=== PATIENT | female | born 1940 | race Caucasian/White ===

== ENCOUNTER 2017-12-29 11:20 | Emergency (ER) | payer MEDICARE, OTHER ==
[2017-12-29 11:27] VITALS: TEMP 97.1
[2017-12-29] MEDS ORDERED: SODIUM CHLORIDE 0.9% 500 ML IV ONE (11:55)
[2017-12-29] MEDS ORDERED: SODIUM CHLORIDE 0.9% 1,000 ML IV SCH (12:00)
[2017-12-29] MEDS ORDERED: ADENOSINE 3 MG/ML 2 ML VIAL IVP STA ×2 (12:01)
[2017-12-29 12:13] LABS: Basophils % (A) 0 %; Eosinophils # (A) 0.1 k/uL (0-0.7); Eosinophils % (A) 2 %; HGB 12.8 gm/dL (11.4-16.0); Lymphocytes # (A) 1.3 k/uL (1.0-4.8); Lymphocytes % (A) 17 %; MCH 29.1 pg (25.0-35.0); MCHC 33.8 g/dL (31.0-37.0); Mean Platelet Volume 8.4; Monocytes # (A) 0.5 k/uL (0-1.0); Monocytes % (A) 7 %; Neutrophils # (A) 5.6 k/uL (1.3-7.7); Neutrophils % (A) 74 %; Platelet Count 237 k/uL (150-450); RBC 4.41 m/uL (3.80-5.40); RDW 13.1 % (11.5-15.5); WBC 7.6 k/uL (3.8-10.6)
[2017-12-29 12:24] LABS: Albumin 3.6 g/dL (3.5-5.0); Calcium 9.4 mg/dL (8.4-10.2); Magnesium 1.9 mg/dL (1.6-2.3); Potassium 4.3 mmol/L (3.5-5.1); Total Bilirubin 0.6 mg/dL (0.2-1.3); Total Protein 6.1 g/dL (6.3-8.2)
[2017-12-29 12:29] LABS: Creatine Kinase 31 U/L (30-135)
[2017-12-29 12:32] LABS: INR 1.1 (<1.2); Prothrombin Time 10.3 sec (9.0-12.0)
[2017-12-29 12:41] LABS: Partial Thromboplastin Time 21.7 sec (22.0-30.0)
[2017-12-29 12:42] LABS: Creatine Kinase MB 0.8 ng/mL (0.0-2.4); Troponin I <0.012 ng/mL (0.000-0.034)
--- NOTE | 2017-12-29 12:57 | XR ---
EXAMINATION TYPE: XR chest 1V DATE OF EXAM: 12/29/2017 COMPARISON: 11/21/2015 HISTORY: Chest pain TECHNIQUE: Single frontal view of the chest is obtained. FINDINGS: Postsurgical change right shoulder and arthropathy left shoulder. There is prominence of t he right hilum. Subsegmental changes at the left lung base. Degenerative changes of the spine. Athero sclerotic change aorta. IMPRESSION: 1. Left basilar linear atelectasis. 2. There is a convex margin to the right hilum. Recommend CT scan chest to exclude mass.
[2017-12-29 13:21] VITALS: RESP 20
--- NOTE | 2017-12-29 14:59 | ED ---
Chest Pain HPI - General Chief Complaint: Chest Pain Stated Complaint: Chest Pain Time Seen by Provider: 12/29/17 11:29 Source: patient, EMS Mode of arrival: EMS Limitations: no limitations - History of Present Illness Initial Comments: 77 years old female comes in with the chest pain started 7 AM today she denies any shortness of breath she denies any pleuritic chest pain denies any fever no chills she is not coughing up any phlegm she noticed palpitations she noticed heart rate was fast, she noticed her pulse was around 135 at home and she feels short winded when she ambulates, no abdominal pain no frequency urgency dysuria no signs of symptoms of TIA or CVA - Related Data Home Medications Medication Instructions Recorded Confirmed DULoxetine HCL [Cymbalta] 60 mg PO BID 01/30/14 12/29/17 Levalbuterol Hfa Inhaler [Xopenex 2 puff INHALATION RT-Q6H PRN 01/30/14 12/29/17 Hfa Inhaler] Multivitamin/Iron/Folic Acid 1 tab PO DAILY 01/30/14 12/29/17 [Centrum Complete Multivit Tab] Nitroglycerin Sl Tabs [Nitrostat] 0.4 mg SUBLINGUAL Q5M PRN 01/30/14 12/29/17 metFORMIN HCL [Glucophage] 1,000 mg PO BID 01/30/14 12/29/17 Atorvastatin Calcium [Lipitor] 10 mg PO DAILY 12/29/17 12/29/17 Carvedilol [Coreg] 3.125 mg PO BID 12/29/17 12/29/17 Furosemide [Lasix] 40 mg PO DAILY 12/29/17 12/29/17 HYDROcodone/APAP 5-325MG [[place] 1 tab PO Q4HR PRN 12/29/17 12/29/17 5-325] Lactulose 10 gm PO BID 12/29/17 12/29/17 Lisinopril [Zestril] 20 mg PO DAILY 12/29/17 12/29/17 Nystatin 100,000Unit/gm Cream 1 applic TOPICAL BID 12/29/17 12/29/17 [Mycostatin Cream] Omeprazole Magnesium [PriLOSEC OTC] 20 mg PO DAILY 12/29/17 12/29/17 Potassium Chloride [Klor-Con 20 meq PO DAILY 12/29/17 12/29/17 Sprinkle] Tamsulosin HCl [Flomax] 0.4 mg PO DAILY 12/29/17 12/29/17 Previous Rx's Medication Instructions Recorded Pregabalin [Lyrica] 100 mg PO BID #60 cap 11/29/15 Carvedilol [Coreg] 6.25 mg PO BID #60 tablet 12/29/17 Lisinopril [Zestril] 10 mg PO DAILY #30 tab 12/29/17 Allergies Allergy/AdvReac Type Severity Reaction Status Date / Time albuterol Allergy Rash/Hives Verified 12/29/17 12:03 carbamazepine [From Tegretol] Allergy Rash/Hives Verified 12/29/17 12:03 carisoprodol [From Soma] Allergy Rash/Hives Verified 12/29/17 12:03 ciprofloxacin [From Cipro] Allergy Rash/Hives Verified 12/29/17 12:03 ciprofloxacin HCl Allergy Rash/Hives Verified 12/29/17 12:03 [From Cipro] rice Allergy Unknown Verified 12/29/17 12:03 Sulfa (Sulfonamide Allergy Rash/Hives Verified 12/29/17 12:03 Antibiotics) doxycycline AdvReac Nausea & Verified 12/29/17 12:03 Vomiting egg AdvReac Nausea & Verified 12/29/17 12:03 Vomiting & Diarrhea artificial sweetner in pop Allergy Rash/Hives Uncoded 12/21/15 13:53 Review of Systems ROS Statement: Those systems with pertinent positive or pertinent negative responses have been documented in the HPI. ROS Other: All systems not noted in ROS Statement are negative. EKG Findings - EKG Comments: EKG Findings:: EKG the supraventricular tachycardia ventricular rate is 134 QRS duration is 80 QT/QTC 300/448 review of this EKG reveals supraventricular tachycardia review of this EKG does not reveal any ST elevation or ST depression Past Medical History Past Medical History: Asthma, Chest Pain / Angina, Diabetes Mellitus, Hyperlipidemia, Hypertension, Respiratory Disorder Additional Past Medical History / Comment(s): Migraine, Varicose Veins, Bronchitis/Pneumonia/Sinus Problems, January 17 had complete right shoulder surgery - problem with blood clots after surgery History of Any Multi-Drug Resistant Organisms: None Reported Past Surgical History: Cholecystectomy, Heart Catheterization, Joint Replacement , Tonsillectomy Additional Past Surgical History / Comment(s): Bilateral Knee Replacement, Bilateral Rotator Cuff RepairComplete right shoulder surgery - January 17, 2015. Cardiac Catheterization - 2015 Past Anesthesia/Blood Transfusion Reactions: No Reported Reaction Past Psychological History: Anxiety, Depression Smoking Status: Never smoker Past Alcohol Use History: None Reported Past Drug Use History: None Reported - Past Family History Son(s) Family Medical History: Myocardial Infarction ([place]) Additional Family Medical History / Comment(s): son was adopted Sister(s) Additional Family Medical History / Comment(s): heart ablation Mother Family Medical History: Myocardial Infarction ([place]) Father Family Medical History: Myocardial Infarction ([place]) General Exam - General Exam Comments Initial Comments: General: The patient is awake , moderate distress, GCS is 15 Skin: Skin is warm and dry and no rashes or lesions are noted. Eye: Pupils are equal, round and reactive to light, extra-ocular movements are intact; there is normal conjunctiva bilaterally. Ears, nose, mouth and throat: There are moist mucous membranes and no oral lesions. Neck: The neck is supple, there is no tenderness or JVD. Cardiovascular: There is a regular rate and Respiratory: To auscultation bilateral, no wheezing no rhonchi no distress respiratory bass noticed Gastrointestinal: Soft, non-distended, non-tender abdomen without masses or organomegaly noted. There is no rebound or guarding present. Bowel sounds are unremarkable. Back: There is no tenderness to palpation in the midline. There is no obvious deformity. Musculoskeletal: Normal ROM, no tenderness, There is no pedal edema. There is no calf tenderness or swelling. No cords were appreciated. Neurological: CN II-XII intact, Cranial nerves III through XII are intact. There are no obvious motor or sensory deficits. Coordination appears grossly intact. Speech is normal. Psychiatric: Cooperative, appropriate mood & affect, normal judgment. Limitations: no limitations Course Vital Signs 12/29/17 12/29/17 12/29/17 11:22 11:27 12:29 Temperature 97.1 F L Pulse Rate 129 H 138 H Pulse Rate [ 129 H Disability Aide ] Respiratory 20 20 Rate Blood Pressure 103/60 103/73 O2 Sat by Pulse 95 95 Oximetry 12/29/17 12/29/17 12/29/17 12:46 13:20 14:18 Temperature Pulse Rate 137 H 78 80 Pulse Rate [ Disability Aide ] Respiratory 18 20 20 Rate Blood Pressure 106/74 118/58 126/59 O2 Sat by Pulse 96 95 96 Oximetry Critical Care Time Total Critical Care Time: 45 Critical Care Time: 77 years old female came in with the supraventricular tachycardia 134, at home she takes lisinopril and carvedilol she was short winded and I will be trying him adenosine we give her a fluid bolus adenosine 6 mg and was ineffective and we tried adenosine 12 mg and lactate and help the rhythm with the mom converted to sinus, first EKG is recorded ordered a CT head the second EKG was done at term 1455, this is sinus rhythm ventricular rate is 72 DC interval is 160 QRS duration is 80 QT/QTc is 398/[address] elevation noticed noticed a T-wave inversion in lead 3. She is feeling fine she wants to go home I did discuss with the Dr. Arauz heart Dr. Álvarez agreed that we could make some adjustments in her medication like decrease the dose of lisinopril from 20-10 mg and increase the dose of Coreg from 3.122 6.25 mg twice a day and they will see her and now the office in 2 days or she'll return to the ER if symptoms get worse at 1504 blood pressure is normal heart rate is back to normal Disposition Clinical Impression: SVT (supraventricular tachycardia), Lung mass Disposition: HOME SELF-CARE Condition: Good Instructions: Supraventricular Tachycardia (ED) Prescriptions: Carvedilol [Coreg] 6.25 mg PO BID #60 tablet Lisinopril [Zestril] 10 mg PO DAILY #30 tab Referrals: Jakob Magallanes MD [Primary Care Provider] - 1-2 days
[2017-12-29 15:29] VITALS: BP 130/61; PULSE 86
== END 2017-12-29 15:47 | disposition home or self-care (01) ==
LOC: EC 11:20
DX: I47.1 Supraventricular tachycardia (principal); R91.8 Other nonspecific abnormal finding of lung field; E11.9 Type 2 diabetes mellitus without complications; E78.5 Hyperlipidemia, unspecified; I10 Essential (primary) hypertension; F41.9 Anxiety disorder, unspecified; F32.9 Major depressive disorder, single episode, unspecified; Z95.818 Presence of other cardiac implants and grafts; Z79.02 Long term (current) use of antithrombotics/antiplatelets; Z79.84 Long term (current) use of oral hypoglycemic drugs; Z79.899 Other long term (current) drug therapy; Z88.8 Allergy status to other drugs, medicaments and biological substances; Z88.1 Allergy status to other antibiotic agents; Z91.018 Allergy to other foods; Z88.2 Allergy status to sulfonamides; Z91.012 Allergy to eggs
CPT/HCPCS: 99291; 96374; 96361 ×3; 36415; 93005; 80053; 82550; 82553; 83735; 84484; 85025; 85610; 85730; 71045; J0153

== ENCOUNTER → 2018-01-11 | Outpatient (CLI) | payer MEDICARE, OTHER ==
--- NOTE | 2018-01-11 13:09 | CT ---
EXAMINATION TYPE: CT chest w con DATE OF EXAM: 01/11/2018 COMPARISON: Chest x-ray December 29, 2017. CTA chest November 23, 2015 HISTORY: Abnormal findings on imaging. Recent abnormal chest x-ray. CT DLP: 472.4 mGycm. Automated Exposure Control for Dose Reduction was Utilized. TECHNIQUE: CT scan of the thorax is performed following with IV Contrast, patient injected with 80 m L of Isovue M300. FINDINGS: LUNGS: Accounting for x-ray abnormality is prominent distal right pulmonary artery branching into low er lobar branch, not significantly changed from prior CT. Current exam is slightly suboptimal due to artifact from patient's upper extremities. No obvious suspicious nodule or mass is present bilaterall y. No suspicious consolidation is seen. No pleural effusion or pneumothorax is noted. Tracheobronchia l tree is patent. MEDIASTINUM: There are no greater than 1 cm hilar or mediastinal lymph nodes. No pericardial effusi on is seen. Mild cardiomegaly is present. There is coronary artery calcification seen which is noted marker for coronary artery disease. There is persistent greater than 1 cm right thyroid nodule coron al image 28. Additional smaller thyroid nodules are present. OTHER: Metallic hardware from shoulder surgery causes streak artifact. There is persistent splenule a nterior to the spleen. Low dense nodular thickening to both adrenal glands favors benign hyperplasia is redemonstrated. There is moderate to severe multilevel spurring in the spine. There is T12 vertebr oplasty. IMPRESSION: 1. No suspicious mass or adenopathy with particular attention to area of right hilum at area of x-ray concern. 2. Redemonstration of nodularity in the thyroid with greater than 1 cm nodularity lower pole right th yroid lobe. Though no significant interval change I advise thyroid ultrasound follow-up to better arcelia luate and characterize.
== END | disposition home or self-care (01) ==
LOC: RADCTMAIN 10:44
PROVIDERS: ATTEND Internal Medicine Geriatric Medicine
DX: R93.8 Abnormal findings on diagnostic imaging of other specified body structures (principal)
CPT/HCPCS: 82565; 84520; 71260; Q9967

== ENCOUNTER 2018-01-29 12:32 | Emergency (ER) | payer MEDICARE, OTHER ==
[2018-01-29 12:37] VITALS: BP 131/73; PULSE 54; RESP 18; TEMP 98.3
[2018-01-29] MEDS ORDERED: methylPREDNISolone SOD SUCCI 125 MG/2 ML VIAL IM ONE (13:34)
--- NOTE | 2018-01-29 13:39 | ED ---
General Adult HPI - General Chief complaint: Skin/Abscess/Foreign Body Stated complaint: rash Time Seen by Provider: 01/29/18 12:43 Source: patient, RN notes reviewed Mode of arrival: wheelchair Limitations: no limitations - History of Present Illness Initial comments: 77-year-old female presents to the emergency department for a chief complaint of rash 3 days. Patient states the rash is itchy. Patient denies any pain. Patient states she contacted her family care doctor who told her to take Benadryl. Patient states that helps with the itching somewhat but has not taken the rash away. Patient denies any shortness of breath or difficulty breathing. Patient denies changing any detergent and or linens. Patient denies any fevers. Patient has no other complaints at this time. Patient denies chest pain, headaches, visual changes, abdominal pain, nausea or vomiting. - Related Data Home Medications Medication Instructions Recorded Confirmed DULoxetine HCL [Cymbalta] 60 mg PO BID 01/30/14 12/29/17 Levalbuterol Hfa Inhaler [Xopenex 2 puff INHALATION RT-Q6H PRN 01/30/14 12/29/17 Hfa Inhaler] Multivitamin/Iron/Folic Acid 1 tab PO DAILY 01/30/14 12/29/17 [Centrum Complete Multivit Tab] Nitroglycerin Sl Tabs [Nitrostat] 0.4 mg SUBLINGUAL Q5M PRN 01/30/14 12/29/17 metFORMIN HCL [Glucophage] 1,000 mg PO BID 01/30/14 12/29/17 Atorvastatin Calcium [Lipitor] 10 mg PO DAILY 12/29/17 12/29/17 Carvedilol [Coreg] 3.125 mg PO BID 12/29/17 12/29/17 Furosemide [Lasix] 40 mg PO DAILY 12/29/17 12/29/17 HYDROcodone/APAP 5-325MG [[place] 1 tab PO Q4HR PRN 12/29/17 12/29/17 5-325] Lactulose 10 gm PO BID 12/29/17 12/29/17 Lisinopril [Zestril] 20 mg PO DAILY 12/29/17 12/29/17 Nystatin 100,000Unit/gm Cream 1 applic TOPICAL BID 12/29/17 12/29/17 [Mycostatin Cream] Omeprazole Magnesium [PriLOSEC OTC] 20 mg PO DAILY 12/29/17 12/29/17 Potassium Chloride [Klor-Con 20 meq PO DAILY 12/29/17 12/29/17 Sprinkle] Tamsulosin HCl [Flomax] 0.4 mg PO DAILY 12/29/17 12/29/17 Previous Rx's Medication Instructions Recorded Pregabalin [Lyrica] 100 mg PO BID #60 cap 11/29/15 Carvedilol [Coreg] 6.25 mg PO BID #60 tablet 12/29/17 Lisinopril [Zestril] 10 mg PO DAILY #30 tab 12/29/17 Famotidine [Pepcid] 10 mg PO BID #10 tablet 01/29/18 predniSONE 50 mg PO DAILY #5 tablet 01/29/18 Allergies Allergy/AdvReac Type Severity Reaction Status Date / Time albuterol Allergy Rash/Hives Verified 01/29/18 12:36 carbamazepine [From Tegretol] Allergy Rash/Hives Verified 01/29/18 12:36 carisoprodol [From Soma] Allergy Rash/Hives Verified 01/29/18 12:36 ciprofloxacin [From Cipro] Allergy Rash/Hives Verified 01/29/18 12:36 ciprofloxacin HCl Allergy Rash/Hives Verified 01/29/18 12:36 [From Cipro] rice Allergy Unknown Verified 01/29/18 12:36 Sulfa (Sulfonamide Allergy Rash/Hives Verified 01/29/18 12:36 Antibiotics) doxycycline AdvReac Nausea & Verified 01/29/18 12:36 Vomiting egg AdvReac Nausea & Verified 01/29/18 12:36 Vomiting & Diarrhea artificial sweetner in pop Allergy Rash/Hives Uncoded 01/29/18 12:36 Review of Systems ROS Statement: Those systems with pertinent positive or pertinent negative responses have been documented in the HPI. ROS Other: All systems not noted in ROS Statement are negative. Past Medical History Past Medical History: Asthma, Chest Pain / Angina, Diabetes Mellitus, Hyperlipidemia, Hypertension, Respiratory Disorder Additional Past Medical History / Comment(s): Migraine, Varicose Veins, Bronchitis/Pneumonia/Sinus Problems, January 17 had complete right shoulder surgery - problem with blood clots after surgery History of Any Multi-Drug Resistant Organisms: None Reported Past Surgical History: Cholecystectomy, Heart Catheterization, Joint Replacement , Tonsillectomy Additional Past Surgical History / Comment(s): Bilateral Knee Replacement, Bilateral Rotator Cuff RepairComplete right shoulder surgery - January 17, 2015. Cardiac Catheterization - 2015 Past Anesthesia/Blood Transfusion Reactions: No Reported Reaction Past Psychological History: Anxiety, Depression Smoking Status: Never smoker Past Alcohol Use History: None Reported Past Drug Use History: None Reported - Past Family History Son(s) Family Medical History: Myocardial Infarction ([place]) Additional Family Medical History / Comment(s): son was adopted Sister(s) Additional Family Medical History / Comment(s): heart ablation Mother Family Medical History: Myocardial Infarction ([place]) Father Family Medical History: Myocardial Infarction ([place]) General Exam Limitations: no limitations General appearance: alert, in no apparent distress Eye exam: Present: normal appearance. Absent: scleral icterus, conjunctival injection, periorbital swelling, periorbital tenderness ENT exam: Present: normal exam, normal oropharynx, mucous membranes moist, TM's normal bilaterally Neck exam: Present: normal inspection, full ROM. Absent: tenderness, meningismus, lymphadenopathy Respiratory exam: Present: normal lung sounds bilaterally. Absent: respiratory distress, wheezes, rales, rhonchi, stridor Cardiovascular Exam: Present: regular rate, normal rhythm, normal heart sounds. Absent: systolic murmur, diastolic murmur, rubs, gallop, clicks Psychiatric exam: Present: normal affect, normal mood Skin exam: Present: rash (Patient has multiple erythematous patches about 3 cm x 3 cm on arms legs and chest. Patient is itching. Negative Nikolsky sign) Course Vital Signs 01/29/18 12:34 Temperature 98.3 F Pulse Rate 54 L Respiratory 18 Rate Blood Pressure 131/73 O2 Sat by Pulse 99 Oximetry Medical Decision Making - Medical Decision Making 77-year-old female presents to the emergency department for a chief complaint of rash 3 days. Patient has tried Benadryl with minimal relief. Her primary care provider recommended this. No difficulty breathing, swelling of the throat or lips, or shortness of breath. On exam patient has multiple erythematous patches that are pruritic on her arms legs and chest. Patient will be given a steroid shot in the emergency department. She will continue steroids starting tomorrow as well as the Benadryl prescribed by her doctor. She will follow-up with her doctor if she has any worsening symptoms. Disposition Clinical Impression: Rash Disposition: HOME SELF-CARE Condition: Good Instructions: Acute Rash (ED) Additional Instructions: Please take steroid as directed and continue Benadryl. Please do not start the steroid until tomorrow. Take cool lukewarm showers and use unscented lotions. Follow up with primary care in 1-2 days. Return to the emergency department if you have any worsening symptoms. Prescriptions: Famotidine [Pepcid] 10 mg PO BID #10 tablet predniSONE 50 mg PO DAILY #5 tablet Is patient prescribed a controlled substance at d/c from ED?: No Referrals: Jakob Magallanes MD [Primary Care Provider] - 1-2 days Time of Disposition: 13:36
== END 2018-01-29 13:48 | disposition home or self-care (01) ==
LOC: EC 12:32
DX: R21 Rash and other nonspecific skin eruption (principal); J45.909 Unspecified asthma, uncomplicated; E11.9 Type 2 diabetes mellitus without complications; E78.5 Hyperlipidemia, unspecified; I10 Essential (primary) hypertension; F32.9 Major depressive disorder, single episode, unspecified; F41.9 Anxiety disorder, unspecified; Z79.84 Long term (current) use of oral hypoglycemic drugs; Z79.899 Other long term (current) drug therapy; Z88.1 Allergy status to other antibiotic agents; Z88.2 Allergy status to sulfonamides; Z88.8 Allergy status to other drugs, medicaments and biological substances; Z91.018 Allergy to other foods; Z91.012 Allergy to eggs
CPT/HCPCS: 99282; 96372; J2930

== ENCOUNTER → 2018-01-29 | Outpatient (CLI) | payer MEDICARE, OTHER ==
--- NOTE | 2018-01-29 13:13 | US ---
EXAMINATION TYPE: US thyroid st tissue head/neck DATE OF EXAM: 01/29/2018 COMPARISON: CT CLINICAL HISTORY: E04.1 thyroid nodule. GLAND SIZE: Right Lobe: 3.9 x 2.3 x 1.7 cm Overall Parenchyma: heterogenous Left Lobe: 3.4 x 1.7 x 1.4 cm Overall Parenchyma: heterogeneous Isthmus Thickness: 0.4 cm NODULES RIGHT: # of nodules measured on right: 2 1. 1.7 X 1.7 x 1.7 cm hypoechoic solid nodule at the mid pole with well-defined margins; . This no dule is wider than tall and shows intranodular vascularity. Prior size: no prior 2. 0.7 X 0.6 x 0.8 cm hypoechoic solid nodule at the upper pole with well-defined margins; . This n odule is wider than tall and shows no intranodular vascularity. Prior size: no prior LEFT: # of nodules measured on left: 1 1. 0.9 X 0.7 x 0.7 cm hypoechoic solid nodule at the lower pole with well-defined margins; . This nodule is wider than tall and shows intranodular vascularity. Prior size: no prior ISTHMUS: # of nodules measured in the isthmus: 0 Bilateral neck scanned, no evidence of lymphadenopathy. Nodules as described. IMPRESSION: Nonspecific nodularity as outlined above.
== END | disposition home or self-care (01) ==
LOC: RADUSWWP 11:41
PROVIDERS: ATTEND Internal Medicine Geriatric Medicine
DX: E04.2 Nontoxic multinodular goiter (principal)
CPT/HCPCS: 76536

== ENCOUNTER 2018-11-18 10:47 | Emergency (ER) | payer MEDICARE, OTHER ==
[2018-11-18 11:30] VITALS: RESP 18; TEMP 98
[2018-11-18] MEDS ORDERED: SODIUM CHLORIDE 0.9% 500 ML 500 ML IV STA (11:40)
--- NOTE | 2018-11-18 11:51 | ED ---
General Adult HPI - General Chief complaint: Recheck/Abnormal Lab/Rx Stated complaint: UTI Time Seen by Provider: 11/18/18 11:13 Source: patient Mode of arrival: EMS Limitations: no limitations - History of Present Illness Initial comments: Dictation was produced using [place] [employer] dictation software. please excuse any grammatical, word or spelling errors. Chief Complaint: 78-year-old female presents via EMS for generalized weakness and possible UTI requiring IV antibiotics. History of Present Illness: Patient is an 78-year-old female who was brought in by EMS for generalized weakness. Patient reports that she had a reaction to by mouth antibiotics she is taking for urinary tract infection. She states she had a conversation with a urologist told her to come to the emergency department to be evaluated for UTI requiring IV antibiotics. Patient states EMS transfer was arranged by urology office. Patient states since yesterday she 's been feeling weak overall body. She states she was leaning over to grab water when she felt really weak and could not do it. Denies any asymmetrical weakness. Patient has no other complaints at this time. She has multiple ALLERGIC reactions. Patient is transferred with a packet reports that there was an order by Dr. Newman refer to come to the emergency department for dysuria with polyuria after multiple treatments of UTI. She is transferred with a ER chart from [facility] dated on 2016. The ROS documented in this emergency department record has been reviewed and confirmed by me. Those systems with pertinent positive or negative responses have been documented in the HPI. All other systems are other negative and/or noncontributory. PHYSICAL EXAM: General Impression: Alert and oriented x3, not in acute distress HEENT: Normocephalic atraumatic, extra-ocular movements intact, pupils equal and reactive to light bilaterally, mucous membranes moist. Cardiovascular: Heart regular rate and rhythm, S1&S2 audible, no murmurs, rubs or gallops Chest: Lungs clear to auscultation bilaterally, no rhonchi, no wheeze, no rales Abdomen: Bowel sounds present, abdomen soft, non-tender, non-distended, no organomegaly Musculoskeletal: Pulses present and equal in all extremities, 2+ pitting edema bilateral lower extremities Motor: Power 5/5 bilaterally, no focal deficits noted Neurological: CN II-XII grossly intact, no focal motor or sensory deficits noted Skin: Intact with no visualized rashes Psych: Normal affect and mood ED course: 78-year-old female is a extremely poor historian. She reports that she is here for by mouth antibiotic resistant UTI. Vital signs Upon arrival are within acceptable limits. Patient case was discussed with Dr. Navarro. He states that patient was agreeable district recently. She had negative urine findings however her urine culture was positive for Klebsiella pneumonia. He reports that patient has multiple ALLERGIES however the sensitivities have been good. No history of drug -resistant urinary tract infection. Laboratory was evaluated. CBC, coag panel , metabolic panels obtained. Patient had mild lactic acidosis of 2.3. Urinalysis unremarkable. No signs to suggest urinary tract infection. Patient case was discussed with home health care system who reports that they were not involved with having patient transferred to the emergency department. Patient is given intravenous fluids per she is given Unasyn after detailed review of ALLERGIES with patient. Patient was observed during administration of Unasyn without any complications. Highly doubt that patient is ALLERGIC to that many medications. Patient clear for discharge. She'll be given prescription for Augmentin. Repeat lactic acid level was obtained with 1.4. Patient clear for discharge. Patient reevaluated with stable medical condition. EKG interpretation: Ventricular rate 59, sinus bradycardia, WV interval 184, pulse 100, QTC 429. No WV prolongation, no QTC prolongation, no ST or T-wave changes noted. Overall, this EKG is unremarkable - Related Data Home Medications Medication Instructions Recorded Confirmed DULoxetine HCL [Cymbalta] 60 mg PO BID 01/30/14 11/18/18 Levalbuterol Hfa Inhaler [Xopenex 1 puff INHALATION RT-DAILY PRN 01/30/14 Hfa Inhaler] Multivitamin/Iron/Folic Acid 1 tab PO DAILY 01/30/14 11/18/18 [Centrum Complete Multivit Tab] metFORMIN HCL [Glucophage] 1,000 mg PO BID 01/30/14 11/18/18 Atorvastatin Calcium [Lipitor] 10 mg PO DAILY 12/29/17 11/18/18 Furosemide [Lasix] 40 mg PO DAILY 12/29/17 11/18/18 HYDROcodone/APAP 5-325MG [[place] 1 tab PO Q4HR PRN 12/29/17 11/18/18 5-325] Lactulose 10 gm PO BID PRN 12/29/17 11/18/18 Omeprazole Magnesium [PriLOSEC OTC] 20 mg PO DAILY 12/29/17 11/18/18 Potassium Chloride [Klor-Con 10 meq PO BID 12/29/17 11/18/18 Sprinkle] Tamsulosin HCl [Flomax] 0.4 mg PO DAILY 12/29/17 11/18/18 Ascorbic Acid [Vitamin C] 1,000 mg PO DAILY 11/18/18 11/18/18 Aspirin EC [Ecotrin Low Dose] 81 mg PO DAILY 11/18/18 11/18/18 Carbidopa-Levodopa 10-100 mg 1 tab PO TID 11/18/18 11/18/18 [Sinemet 10-100] Docusate [Colace] 100 mg PO BID PRN 11/18/18 11/18/18 Fluticasone Nasal [place] [Flonase 2 spr EA NOSTRIL DAILY 11/18/18 11/18/18 Nasal [place]] Furosemide [Lasix] 20 mg PO DAILY 11/18/18 11/18/18 Ibuprofen [Motrin Ib] 400 mg PO HS PRN 11/18/18 11/18/18 Isosorbide Mononitrate ER [Imdur] 60 mg PO DAILY 11/18/18 11/18/18 L.acidoph,Paracasei, B.lactis 2 cap PO DAILY 11/18/18 11/18/18 [Probiotic] Loratadine [Claritin] 10 mg PO DAILY 11/18/18 11/18/18 Naloxegol Oxalate [Movantik] 25 mg PO DAILY PRN 11/18/18 11/18/18 Polyethylene Glycol 3350 [Clearlax] 17 gm PO DAILY 11/18/18 11/18/18 Pregabalin [Lyrica] 150 mg PO BID 11/18/18 11/18/18 Vit D 25mcg 25 mcg PO BID 11/18/18 11/18/18 Previous Rx's Medication Instructions Recorded Carvedilol [Coreg] 6.25 mg PO BID #60 tablet 12/29/17 Lisinopril [Zestril] 10 mg PO DAILY #30 tab 12/29/17 Amoxic-Pot Clav 875-125Mg 1 tab PO BID 3 Days #6 tab 11/18/18 [Augmentin 875-125] Allergies Allergy/AdvReac Type Severity Reaction Status Date / Time albuterol Allergy Rash/Hives Verified 01/29/18 12:36 carbamazepine [From Tegretol] Allergy Rash/Hives Verified 01/29/18 12:36 carisoprodol [From Soma] Allergy Rash/Hives Verified 01/29/18 12:36 ciprofloxacin [From Cipro] Allergy Rash/Hives Verified 01/29/18 12:36 ciprofloxacin HCl Allergy Rash/Hives Verified 01/29/18 12:36 [From Cipro] rice Allergy Unknown Verified 01/29/18 12:36 Sulfa (Sulfonamide Allergy Rash/Hives Verified 01/29/18 12:36 Antibiotics) sulfamethoxazole Allergy Unknown Verified 11/18/18 11:23 [From Bactrim] trimethoprim [From Bactrim] Allergy Unknown Verified 11/18/18 11:23 doxycycline AdvReac Nausea & Verified 01/29/18 12:36 Vomiting egg AdvReac Nausea & Verified 01/29/18 12:36 Vomiting & Diarrhea artificial sweetner in pop Allergy Rash/Hives Uncoded 01/29/18 12:36 Review of Systems ROS Statement: Those systems with pertinent positive or pertinent negative responses have been documented in the HPI. ROS Other: All systems not noted in ROS Statement are negative. Past Medical History Past Medical History: Asthma, Chest Pain / Angina, Diabetes Mellitus, Hyperlipidemia, Hypertension, Respiratory Disorder Additional Past Medical History / Comment(s): Migraine, Varicose Veins, Bronchitis/Pneumonia/Sinus Problems, January 17 had complete right shoulder surgery - problem with blood clots after surgery History of Any Multi-Drug Resistant Organisms: None Reported Past Surgical History: Cholecystectomy, Heart Catheterization, Joint Replacement , Tonsillectomy Additional Past Surgical History / Comment(s): Bilateral Knee Replacement, Bilateral Rotator Cuff RepairComplete right shoulder surgery - January 17, 2015. Cardiac Catheterization - 2015 Past Anesthesia/Blood Transfusion Reactions: No Reported Reaction Past Psychological History: Anxiety, Depression Smoking Status: Never smoker Past Alcohol Use History: None Reported Past Drug Use History: None Reported - Past Family History Son(s) Family Medical History: Myocardial Infarction ([place]) Additional Family Medical History / Comment(s): son was adopted Sister(s) Additional Family Medical History / Comment(s): heart ablation Mother Family Medical History: Myocardial Infarction ([place]) Father Family Medical History: Myocardial Infarction ([place]) General Exam Limitations: no limitations Course Vital Signs 11/18/18 11/18/18 11/18/18 11:27 15:03 16:35 Temperature 98.0 F Pulse Rate 57 L 56 L 53 L Respiratory 18 18 18 Rate Blood Pressure 121/63 166/83 164/54 O2 Sat by Pulse 96 94 L 97 Oximetry Medical Decision Making - Lab Data Result diagrams: 11/18/18 12:49 11/18/18 12:49 Lab Results 11/18/18 11/18/18 11/18/18 Range/Units 12:35 12:49 12:49 WBC 5.5 (3.8-10.6) k/uL RBC 4.09 (3.80-5.40) m/uL Hgb 11.3 L (11.4-16.0) gm/dL Hct 36.2 (34.0-46.0) % MCV 88.4 (80.0-100.0) fL MCH 27.7 (25.0-35.0) pg MCHC 31.3 (31.0-37.0) g/dL RDW 14.5 (11.5-15.5) % Plt Count 199 (150-450) k/uL Neutrophils % 61 % Lymphocytes % 23 % Monocytes % 8 % Eosinophils % 4 % Basophils % 1 % Neutrophils # 3.4 (1.3-7.7) k/uL Lymphocytes # 1.3 (1.0-4.8) k/uL Monocytes # 0.5 (0-1.0) k/uL Eosinophils # 0.2 (0-0.7) k/uL Basophils # 0.0 (0-0.2) k/uL PT (9.0-12.0) sec INR (<1.2) APTT (22.0-30.0) sec Sodium (137-145) mmol/L Potassium (3.5-5.1) mmol/L Chloride (98-107) mmol/L Carbon Dioxide (22-30) mmol/L Anion Gap mmol/L BUN (7-17) mg/dL Creatinine (0.52-1.04) mg/dL Est GFR (CKD-EPI)AfAm (>60 ml/min/1.73 sqM) Est GFR (CKD-EPI)NonAf (>60 ml/min/1.73 sqM) Glucose (74-99) mg/dL Lactic Ac Sepsis Rflx Plasma Lactic Acid Manas (0.7-2.0) mmol/L Calcium (8.4-10.2) mg/dL Ionized Calcium Gurinedr (4.5-5.3) mg/dL Phosphorus (2.5-4.5) mg/dL Magnesium (1.6-2.3) mg/dL Total Bilirubin (0.2-1.3) mg/dL AST (14-36) U/L ALT (9-52) U/L Alkaline Phosphatase (38-126) U/L Total Creatine Kinase 62 (30-135) U/L CK-MB (CK-2) 0.9 (0.0-2.4) ng/mL CK-MB (CK-2) Rel Index 1.5 Troponin I <0.012 (0.000-0.034) ng/mL NT-Pro-B Natriuret Pep pg/mL Total Protein (6.3-8.2) g/dL Albumin (3.5-5.0) g/dL TSH (0.465-4.680) mIU/L Urine Color Light Yellow Urine Appearance Clear (Clear) Urine pH 5.0 (5.0-8.0) Ur Specific Mcdonald 1.005 (1.001-1.035) Urine Protein Negative (Negative) Urine Glucose (UA) Negative (Negative) Urine Ketones Negative (Negative) Urine Blood Negative (Negative) Urine Nitrite Negative (Negative) Urine Bilirubin Negative (Negative) Urine Urobilinogen <2.0 (<2.0) mg/dL Ur Leukocyte Esterase Negative (Negative) 11/18/18 11/18/18 11/18/18 Range/Units 12:49 12:49 12:49 WBC (3.8-10.6) k/uL RBC (3.80-5.40) m/uL Hgb (11.4-16.0) gm/dL Hct (34.0-46.0) % MCV (80.0-100.0) fL MCH (25.0-35.0) pg MCHC (31.0-37.0) g/dL RDW (11.5-15.5) % Plt Count (150-450) k/uL Neutrophils % % Lymphocytes % % Monocytes % % Eosinophils % % Basophils % % Neutrophils # (1.3-7.7) k/uL Lymphocytes # (1.0-4.8) k/uL Monocytes # (0-1.0) k/uL Eosinophils # (0-0.7) k/uL Basophils # (0-0.2) k/uL PT (9.0-12.0) sec INR (<1.2) APTT (22.0-30.0) sec Sodium 139 (137-145) mmol/L Potassium 4.9 (3.5-5.1) mmol/L Chloride 101 (98-107) mmol/L Carbon Dioxide 30 (22-30) mmol/L Anion Gap 8 mmol/L BUN 18 H (7-17) mg/dL Creatinine 0.98 (0.52-1.04) mg/dL Est GFR (CKD-EPI)AfAm 63 (>60 ml/min/1.73 sqM) Est GFR (CKD-EPI)NonAf 55 (>60 ml/min/1.73 sqM) Glucose 83 (74-99) mg/dL Lactic Ac Sepsis Rflx Plasma Lactic Acid Manas 2.3 H* (0.7-2.0) mmol/L Calcium 9.1 (8.4-10.2) mg/dL Ionized Calcium Gurinder 4.8 (4.5-5.3) mg/dL Phosphorus 4.1 (2.5-4.5) mg/dL Magnesium 2.0 (1.6-2.3) mg/dL Total Bilirubin 1.0 (0.2-1.3) mg/dL AST 26 (14-36) U/L ALT 24 (9-52) U/L Alkaline Phosphatase 41 (38-126) U/L Total Creatine Kinase (30-135) U/L CK-MB (CK-2) (0.0-2.4) ng/mL CK-MB (CK-2) Rel Index Troponin I (0.000-0.034) ng/mL NT-Pro-B Natriuret Pep 419 pg/mL Total Protein 6.6 (6.3-8.2) g/dL Albumin 4.0 (3.5-5.0) g/dL TSH 0.111 L (0.465-4.680) mIU/L Urine Color Urine Appearance (Clear) Urine pH (5.0-8.0) Ur Specific Mcdonald (1.001-1.035) Urine Protein (Negative) Urine Glucose (UA) (Negative) Urine Ketones (Negative) Urine Blood (Negative) Urine Nitrite (Negative) Urine Bilirubin (Negative) Urine Urobilinogen (<2.0) mg/dL Ur Leukocyte Esterase (Negative) 11/18/18 11/18/18 11/18/18 Range/Units 12:49 13:18 16:18 WBC (3.8-10.6) k/uL RBC (3.80-5.40) m/uL Hgb (11.4-16.0) gm/dL Hct (34.0-46.0) % MCV (80.0-100.0) fL MCH (25.0-35.0) pg MCHC (31.0-37.0) g/dL RDW (11.5-15.5) % Plt Count (150-450) k/uL Neutrophils % % Lymphocytes % % Monocytes % % Eosinophils % % Basophils % % Neutrophils # (1.3-7.7) k/uL Lymphocytes # (1.0-4.8) k/uL Monocytes # (0-1.0) k/uL Eosinophils # (0-0.7) k/uL Basophils # (0-0.2) k/uL PT 10.5 (9.0-12.0) sec INR 1.0 (<1.2) APTT 21.9 L (22.0-30.0) sec Sodium (137-145) mmol/L Potassium (3.5-5.1) mmol/L Chloride (98-107) mmol/L Carbon Dioxide (22-30) mmol/L Anion Gap mmol/L BUN (7-17) mg/dL Creatinine (0.52-1.04) mg/dL Est GFR (CKD-EPI)AfAm (>60 ml/min/1.73 sqM) Est GFR (CKD-EPI)NonAf (>60 ml/min/1.73 sqM) Glucose (74-99) mg/dL Lactic Ac Sepsis Rflx Y Plasma Lactic Acid Manas 1.4 (0.7-2.0) mmol/L Calcium (8.4-10.2) mg/dL Ionized Calcium Gurinder (4.5-5.3) mg/dL Phosphorus (2.5-4.5) mg/dL Magnesium (1.6-2.3) mg/dL Total Bilirubin (0.2-1.3) mg/dL AST (14-36) U/L ALT (9-52) U/L Alkaline Phosphatase (38-126) U/L Total Creatine Kinase (30-135) U/L CK-MB (CK-2) (0.0-2.4) ng/mL CK-MB (CK-2) Rel Index Troponin I (0.000-0.034) ng/mL NT-Pro-B Natriuret Pep pg/mL Total Protein (6.3-8.2) g/dL Albumin (3.5-5.0) g/dL TSH (0.465-4.680) mIU/L Urine Color Urine Appearance (Clear) Urine pH (5.0-8.0) Ur Specific Mcdonald (1.001-1.035) Urine Protein (Negative) Urine Glucose (UA) (Negative) Urine Ketones (Negative) Urine Blood (Negative) Urine Nitrite (Negative) Urine Bilirubin (Negative) Urine Urobilinogen (<2.0) mg/dL Ur Leukocyte Esterase (Negative) Disposition Clinical Impression: Well adult health check Disposition: HOME SELF-CARE Condition: Good Prescriptions: Amoxic-Pot Clav 875-125Mg [Augmentin 875-125] 1 tab PO BID 3 Days #6 tab Is patient prescribed a controlled substance at d/c from ED?: No Referrals: Jakob Magallanes MD [Primary Care Provider] - 1-2 days Time of Disposition: 17:50
[2018-11-18 12:54] LABS: Appearance,Urine Clear (Clear); Bilirubin,Urine Negative (Negative); Blood,Urine Negative (Negative); Color,Urine Light Yellow; Glucose,Urine (UA) Negative (Negative); Ketones,Urine Negative (Negative); Leukocyte Esterase,Urine Negative (Negative); Nitrite,Urine Negative (Negative); Protein,Urine Negative (Negative); Specific Gravity,Urine 1.005 (1.001-1.035); Urobilinogen,Urine <2.0 mg/dL (<2.0)
[2018-11-18 13:01] LABS: Basophils % (A) 1 %; Eosinophils # (A) 0.2 k/uL (0-0.7); Eosinophils % (A) 4 %; HCT 36.2 % (34.0-46.0); HGB 11.3 gm/dL (11.4-16.0); Lymphocytes # (A) 1.3 k/uL (1.0-4.8); Lymphocytes % (A) 23 %; MCH 27.7 pg (25.0-35.0); MCHC 31.3 g/dL (31.0-37.0); MCV 88.4 fL (80.0-100.0); Mean Platelet Volume 8.2; Monocytes # (A) 0.5 k/uL (0-1.0); Monocytes % (A) 8 %; Neutrophils # (A) 3.4 k/uL (1.3-7.7); Neutrophils % (A) 61 %; Platelet Count 199 k/uL (150-450); RBC 4.09 m/uL (3.80-5.40); RDW 14.5 % (11.5-15.5); WBC 5.5 k/uL (3.8-10.6)
[2018-11-18 13:08] LABS: Ionized Calcium 4.8 mg/dL (4.5-5.3)
[2018-11-18 13:16] LABS: Prothrombin Time 10.5 sec (9.0-12.0)
[2018-11-18 13:17] LABS: Calcium 9.1 mg/dL (8.4-10.2); Phosphorus 4.1 mg/dL (2.5-4.5); Potassium 4.9 mmol/L (3.5-5.1); Total Protein 6.6 g/dL (6.3-8.2)
[2018-11-18 13:22] LABS: Partial Thromboplastin Time 21.9 sec (22.0-30.0)
[2018-11-18 13:23] LABS: Creatine Kinase 62 U/L (30-135)
[2018-11-18 13:35] LABS: Creatine Kinase MB 0.9 ng/mL (0.0-2.4); Troponin I <0.012 ng/mL (0.000-0.034)
[2018-11-18] MEDS ORDERED: AMPICILLIN-SULBACTAM 3 GM in SODIUM CHLORIDE 0.9% 100 ML IVPB STA (14:29)
--- NOTE | 2018-11-18 14:51 | XR ---
EXAMINATION TYPE: XR chest 2V DATE OF EXAM: 11/18/2018 COMPARISON: 12/29/[address] 01/11/2018 HISTORY: 78-year-old female with weakness TECHNIQUE: AP and lateral views FINDINGS: Partially visualized right reverse shoulder arthroplasty. Heart borderline enlarged. Bilateral hilar prominence is redemonstrated. Mild elongation thoracic aorta. No consolidation or pleural effusion. V ertebroplasty change lower thoracic spine. IMPRESSION: 1. Borderline heart size. 2. Bilateral hilar prominence is unchanged and seems to be largely vascular superimposition when jackie elating with prior CT. 3. No acute process seen.
[2018-11-18 16:36] VITALS: BP 164/54; PULSE 53
[2018-11-18] MEDS ORDERED: ACETAMINOPHEN TAB 325 MG TAB PO STA (17:48)
== END 2018-11-18 18:35 | disposition home or self-care (01) ==
LOC: EC 10:47
DX: R30.0 Dysuria (principal); R35.8 Other polyuria; E87.2 Acidosis; J45.909 Unspecified asthma, uncomplicated; E11.9 Type 2 diabetes mellitus without complications; E78.5 Hyperlipidemia, unspecified; I10 Essential (primary) hypertension; F41.9 Anxiety disorder, unspecified; F32.9 Major depressive disorder, single episode, unspecified; Z95.818 Presence of other cardiac implants and grafts; Z96.653 Presence of artificial knee joint, bilateral; Z79.84 Long term (current) use of oral hypoglycemic drugs; Z79.82 Long term (current) use of aspirin; Z79.899 Other long term (current) drug therapy; Z88.8 Allergy status to other drugs, medicaments and biological substances; Z88.1 Allergy status to other antibiotic agents; Z91.018 Allergy to other foods; Z88.2 Allergy status to sulfonamides; Z91.012 Allergy to eggs
CPT/HCPCS: 36415; 71046; 80053; 81003; 82330; 82550; 82553; 83605; 83735; 83880; 84100; 84443; 84484; 85025; 85610; 85730; 87086; 96361; 96365; 99284

== ENCOUNTER 2021-03-21 13:52 | Inpatient (IN) | payer MEDICARE, OTHER ==
--- NOTE | 2021-03-21 15:19 | ED ---
Weakness HPI - General Chief complaint: Weakness Stated complaint: Weakness Time Seen by Provider: 03/21/21 14:58 Source: EMS Mode of arrival: EMS Limitations: physical limitation - History of Present Illness Initial comments: This is an 80-year-old female to history of hypertension, hyperlipidemia, diabetes, recurrent UTIs, intracranial hemorrhage status post evacuation in September of this year with resultant right facial droop and right leg weakness poncho zuñiga presents emergency department for generalized weakness. She states that she started to feel generally weak yesterday area she states that it progressed into today and she states that today she was unable to get up to go to the bathroom. She did urinate on herself at home. She states that when she try to get up and she slid to the floor and landed on her bottom however did not sustain any inj uries. She denies any head injury or loss of consciousness. The patient otherwise denies any other complaints. She denies any fevers, chills, sore throat, chest pain, shortness of breath, cough, nausea, vomiting, diarrhea, abdominal pain, dark or bloody stools, dysuria. She states that she has chronic right-sided facial droop and right leg weakness. Also has a history of chronic right knee pain with a history of multiple surgeries in the past. Apparently the patient was recently at [facility] for generalized weakness for a couple of days. She denies any other acute complaints at this time. - Related Data Home Medications Medication Instructions Recorded Confirmed Levalbuterol Hfa Inhaler [Xopenex 1 - 2 puff INHALATION RT-BID PRN 01/30/14 03/21/21 Hfa Inhaler] Atorvastatin Calcium [Lipitor] 10 mg PO HS 12/29/17 03/21/21 Furosemide [Lasix] 40 mg PO BID 12/29/17 03/21/21 HYDROcodone/APAP 5-325MG [[employer] 1 tab PO Q6H PRN 12/29/17 03/21/21 5-325] Aspirin EC [Ecotrin Low Dose] 81 mg PO DAILY 11/18/18 03/21/21 Isosorbide Mononitrate ER [Imdur] 60 mg PO DAILY 11/18/18 03/21/21 Naloxegol Oxalate [Movantik] 25 mg PO DAILY 11/18/18 03/21/21 Polyethylene Glycol 3350 [Clearlax] 17 gm PO DAILY 11/18/18 03/21/21 Pregabalin [Lyrica] 150 mg PO BID 11/18/18 03/21/21 ALPRAZolam [Xanax] 0.25 mg PO Q12H PRN 03/21/21 03/21/21 Albuterol Sulfate [Ventolin HFA] 2 puff INHALATION RT-Q6H PRN 03/21/21 03/21/21 Apixaban [Eliquis] 2.5 mg PO BID 03/21/21 03/21/21 Carbidopa-Levodopa 25-100 mg 1 tab PO QID 03/21/21 03/21/21 [Sinemet 25-100] Cetirizine HCl [Zyrtec] 10 mg PO DAILY 03/21/21 03/21/21 Escitalopram [Lexapro] 10 mg PO DAILY 03/21/21 03/21/21 Montelukast [Singulair] 10 mg PO HS 03/21/21 03/21/21 Nitroglycerin Sl Tabs [Nitrostat] 0.4 mg SL Q5M PRN 03/21/21 03/21/21 Pantoprazole Sodium [Protonix] 40 mg PO DAILY 03/21/21 03/21/21 Potassium Chloride ER [K-Dur 10] 10 meq PO DAILY 03/21/21 03/21/21 Repaglinide [Prandin] 0.5 mg PO AC-TID 03/21/21 03/21/21 Spironolactone 25 mg PO DAILY 03/21/21 03/21/21 amLODIPine [Norvasc] 5 mg PO DAILY 03/21/21 03/21/21 carvediloL [Coreg] 6.25 mg PO BID 03/21/21 03/21/21 sitaGLIPtin [Januvia] 50 mg PO DAILY 03/21/21 03/21/21 Allergies Allergy/AdvReac Type Severity Reaction Status Date / Time albuterol Allergy Rash/Hives Verified 03/21/21 17:25 carbamazepine [From Tegretol] Allergy Rash/Hives Verified 03/21/21 17:25 carisoprodol [From Soma] Allergy Rash/Hives Verified 03/21/21 17:25 ciprofloxacin [From Cipro] Allergy Rash/Hives Verified 03/21/21 17:25 ciprofloxacin HCl Allergy Rash/Hives Verified 03/21/21 17:25 [From Cipro] rice Allergy Unknown Verified 03/21/21 17:25 Sulfa (Sulfonamide Allergy Rash/Hives Verified 03/21/21 17:25 Antibiotics) sulfamethoxazole Allergy Unknown Verified 03/21/21 17:25 [From Bactrim] trimethoprim [From Bactrim] Allergy Unknown Verified 03/21/21 17:25 doxycycline AdvReac Nausea & Verified 03/21/21 17:25 Vomiting egg AdvReac Nausea & Verified 03/21/21 17:25 Vomiting & Diarrhea artificial sweetner in pop Allergy Rash/Hives Uncoded 03/21/21 17:25 Review of Systems ROS Statement: Those systems with pertinent positive or pertinent negative responses have been documented in the HPI. ROS Other: All systems not noted in ROS Statement are negative. Past Medical History Past Medical History: Asthma, Chest Pain / Angina, Diabetes Mellitus, Hyperlipidemia, Hypertension, Respiratory Disorder Additional Past Medical History / Comment(s): Migraine, Varicose Veins, Bronchitis/Pneumonia/Sinus Problems, January 17 had complete right shoulder surgery - problem with blood clots after surgery History of Any Multi-Drug Resistant Organisms: None Reported Past Surgical History: Cholecystectomy, Heart Catheterization, Joint Replacement, Tonsillectomy Additional Past Surgical History / Comment(s): Bilateral Knee Replacement, Bilateral Rotator Cuff RepairComplete right shoulder surgery - January 17, 2015. Cardiac Catheterization - 2015 Past Anesthesia/Blood Transfusion Reactions: No Reported Reaction Past Psychological History: Anxiety, Depression Smoking Status: Unknown if ever smoked Past Alcohol Use History: None Reported Past Drug Use History: None Reported - Past Family History Son(s) Family Medical History: Myocardial Infarction (CT) Additional Family Medical History / Comment(s): son was adopted Sister(s) Additional Family Medical History / Comment(s): heart ablation Mother Family Medical History: Myocardial Infarction (CT) Father Family Medical History: Myocardial Infarction (CT) General Exam - General Exam Comments Initial Comments: Constitutional: Awake alert Appears comfortable Head: Normocephalic atraumatic Eyes: no conjunctival injection No scleral icterus EOMI, pupils are 4 mm and reactive bilaterally, visual leos are intact Neck: No JVD Supple Heart: Regular rate rhythm normal S1-S2 no murmurs Lungs: Clear to auscultation bilaterally No wheezing No rales Abdomen: Soft nondistended nontender Extremities: Non edematous DP pulses intact Radial pulses intact, postsurgical scar to the right knee Neuro: A&Ox3, the patient has intact cranial nerves II through XII, she has 5 out of 5 strength in upper extremities bilaterally, she has 4 out of 5 strength in right lower extremity and 5 out of 5 strength in left lower extremity area and she does have a minor right-sided facial droop however this seems to dissi reveles after the patient is smiling Psych: Appropriate mood and affect Limitations: physical limitation Course Vital Signs 03/21/21 03/21/21 14:02 17:20 Temperature 97.7 F Pulse Rate 80 90 Respiratory 14 18 Rate Blood Pressure 111/88 152/90 O2 Sat by Pulse 94 L 96 Oximetry EKG Findings - EKG Comments: EKG Findings:: EKG showing it to fibrillation with a rate of 88. No abnormal ST segment changes. There is T-wave inversion in V2. QTC is 420. Other intervals normal. No ectopy. Medical Decision Making - Medical Decision Making Is an 80-year-old female who presents emergency department for generalized weakness. The patient had no lateralizing deficits on exam that were new. Blood work was obtained and showed mild acute kidney injury likely secondary to dehydration. UA was positive for UTI. The patient was started on Rocephin. Due to the patient's generalized weakness and family unable to care for the patient should be admitted to the hospital for further management. Dr. Marrero except see admission. - Lab Data Result diagrams: 03/21/21 15:50 03/21/21 15:50 Lab Results 03/21/21 03/21/21 03/21/21 Range/Units 15:50 15:50 15:50 WBC 8.3 (3.8-10.6) k/uL RBC 5.07 (3.80-5.40) m/uL Hgb 13.4 (11.4-16.0) gm/dL Hct 40.6 (34.0-46.0) % MCV 80.0 (80.0-100.0) fL MCH 26.4 (25.0-35.0) pg MCHC 33.0 (31.0-37.0) g/dL RDW 18.6 H (11.5-15.5) % Plt Count 143 L (150-450) k/uL MPV 7.7 Neutrophils % 78 % Lymphocytes % 9 % Monocytes % 6 % Eosinophils % 4 % Basophils % 1 % Neutrophils # 6.5 (1.3-7.7) k/uL Lymphocytes # 0.8 L (1.0-4.8) k/uL Monocytes # 0.5 (0-1.0) k/uL Eosinophils # 0.4 (0-0.7) k/uL Basophils # 0.1 (0-0.2) k/uL Anisocytosis Slight Microcytosis Slight PT 10.6 (9.0-12.0) sec INR 1.0 (<1.2) APTT 19.2 L (22.0-30.0) sec Sodium 134 L (137-145) mmol/L Potassium 4.3 (3.5-5.1) mmol/L Chloride 98 (98-107) mmol/L Carbon Dioxide 29 (22-30) mmol/L Anion Gap 7 mmol/L BUN 36 H (7-17) mg/dL Creatinine 1.51 H (0.52-1.04) mg/dL Est GFR (CKD-EPI)AfAm 37 (>60 ml/min/1.73 sqM) Est GFR (CKD-EPI)NonAf 32 (>60 ml/min/1.73 sqM) Glucose 127 H (74-99) mg/dL Calcium 8.5 (8.4-10.2) mg/dL Magnesium 2.2 (1.6-2.3) mg/dL Total Bilirubin 2.6 H (0.2-1.3) mg/dL AST 28 (14-36) U/L ALT 11 (4-34) U/L Alkaline Phosphatase 61 (38-126) U/L Troponin I (0.000-0.034) ng/mL NT-Pro-B Natriuret Pep pg/mL Total Protein 6.2 L (6.3-8.2) g/dL Albumin 3.5 (3.5-5.0) g/dL Urine Color Urine Appearance (Clear) Urine pH (5.0-8.0) Ur Specific [place] (1.001-1.035) Urine Protein (Negative) Urine Glucose (UA) (Negative) Urine Ketones (Negative) Urine Blood (Negative) Urine Nitrite (Negative) Urine Bilirubin (Negative) Urine Urobilinogen (<2.0) mg/dL Ur Leukocyte Esterase (Negative) Urine RBC (0-5) /hpf Urine WBC (0-5) /hpf Urine WBC Clumps (None) /hpf Ur Squamous Epith Cells (0-4) /hpf Urine Bacteria (None) /hpf Urine Yeast (Budding) (None) /hpf 03/21/21 03/21/21 03/21/21 Range/Units 15:50 15:50 17:38 WBC (3.8-10.6) k/uL RBC (3.80-5.40) m/uL Hgb (11.4-16.0) gm/dL Hct (34.0-46.0) % MCV (80.0-100.0) fL MCH (25.0-35.0) pg MCHC (31.0-37.0) g/dL RDW (11.5-15.5) % Plt Count (150-450) k/uL MPV Neutrophils % % Lymphocytes % % Monocytes % % Eosinophils % % Basophils % % Neutrophils # (1.3-7.7) k/uL Lymphocytes # (1.0-4.8) k/uL Monocytes # (0-1.0) k/uL Eosinophils # (0-0.7) k/uL Basophils # (0-0.2) k/uL Anisocytosis Microcytosis PT (9.0-12.0) sec INR (<1.2) APTT (22.0-30.0) sec Sodium (137-145) mmol/L Potassium (3.5-5.1) mmol/L Chloride (98-107) mmol/L Carbon Dioxide (22-30) mmol/L Anion Gap mmol/L BUN (7-17) mg/dL Creatinine (0.52-1.04) mg/dL Est GFR (CKD-EPI)AfAm (>60 ml/min/1.73 sqM) Est GFR (CKD-EPI)NonAf (>60 ml/min/1.73 sqM) Glucose (74-99) mg/dL Calcium (8.4-10.2) mg/dL Magnesium (1.6-2.3) mg/dL Total Bilirubin (0.2-1.3) mg/dL AST (14-36) U/L ALT (4-34) U/L Alkaline Phosphatase (38-126) U/L Troponin I <0.012 (0.000-0.034) ng/mL NT-Pro-B Natriuret Pep 1010 pg/mL Total Protein (6.3-8.2) g/dL Albumin (3.5-5.0) g/dL Urine Color Yellow Urine Appearance Turbid H (Clear) Urine pH 6.5 (5.0-8.0) Ur Specific [place] 1.018 (1.001-1.035) Urine Protein 1+ H (Negative) Urine Glucose (UA) Negative (Negative) Urine Ketones Negative (Negative) Urine Blood Moderate H (Negative) Urine Nitrite Negative (Negative) Urine Bilirubin Negative (Negative) Urine Urobilinogen 3.0 (<2.0) mg/dL Ur Leukocyte Esterase Large H (Negative) Urine RBC 2 (0-5) /hpf Urine WBC >182 H (0-5) /hpf Urine WBC Clumps Many H (None) /hpf Ur Squamous Epith Cells 2 (0-4) /hpf Urine Bacteria Few H (None) /hpf Urine Yeast (Budding) Many H (None) /hpf Disposition Clinical Impression: UTI (urinary tract infection), LIBIA (acute kidney injury) Disposition: ADMITTED IP TO THIS [facility] Condition: Stable Referrals: Jakob Magallanes MD [Primary Care Provider] - 1-2 days
--- NOTE | 2021-03-21 15:40 | XR ---
EXAMINATION TYPE: XR chest 1V portable DATE OF EXAM: 03/21/2021 COMPARISON: 11/18/2018 HISTORY: Weakness TECHNIQUE: Single frontal view of the chest is obtained. FINDINGS: There is no focal air space opacity, pleural effusion, or pneumothorax seen. The cardiac silhouette size is within normal limits. Patient is status post right shoulder reverse arthroplasty w hich is incompletely included. IMPRESSION: No acute process.
--- NOTE | 2021-03-21 15:51 | CT ---
EXAMINATION TYPE: CT brain wo con DATE OF EXAM: 03/21/2021 COMPARISON: MR brain 07/11/2015, CT brain 05/29/2012 HISTORY: altered mental status CT DLP: 1099.4 mGycm Automated exposure control for dose reduction was used. Helical imaging through the brain. 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 There is cortical atrophy present wi th prominent extra-axial cerebrospinal fluid noted over the convexities and frontal lobes similar to prior. Periventricular white matter shows patchy low attenuation, there is no evident hemorrhage or h ydrocephalus. IMPRESSION: AGE-RELATED CHANGES OF ATROPHY AND PROBABLE CHRONIC SMALL VESSEL ISCHEMIA. SINUS DISEASE.
[2021-03-21 15:54] LABS: Anisocytosis Slight; Basophils # (A) 0.1 k/uL (0-0.2); Basophils % (A) 1 %; Eosinophils # (A) 0.4 k/uL (0-0.7); Eosinophils % (A) 4 %; HCT 40.6 % (34.0-46.0); HGB 13.4 gm/dL (11.4-16.0); Lymphocytes # (A) 0.8 k/uL (1.0-4.8); Lymphocytes % (A) 9 %; MCH 26.4 pg (25.0-35.0); Mean Platelet Volume 7.7; Microcytosis Slight; Monocytes # (A) 0.5 k/uL (0-1.0); Monocytes % (A) 6 %; Neutrophils # (A) 6.5 k/uL (1.3-7.7); Neutrophils % (A) 78 %; Platelet Count 143 k/uL (150-450); RBC 5.07 m/uL (3.80-5.40); RDW 18.6 % (11.5-15.5); WBC 8.3 k/uL (3.8-10.6)
[2021-03-21 16:02] LABS: Albumin 3.5 g/dL (3.5-5.0); Calcium 8.5 mg/dL (8.4-10.2); Magnesium 2.2 mg/dL (1.6-2.3); Potassium 4.3 mmol/L (3.5-5.1); Total Bilirubin 2.6 mg/dL (0.2-1.3); Total Protein 6.2 g/dL (6.3-8.2)
[2021-03-21] MEDS ORDERED: SODIUM CHLORIDE 0.9% 500 ML 500 ML IV ONE (16:10)
[2021-03-21 16:15] LABS: Prothrombin Time 10.6 sec (9.0-12.0)
[2021-03-21 16:23] LABS: Partial Thromboplastin Time 19.2 sec (22.0-30.0)
[2021-03-21] MEDS: SODIUM CHLORIDE 0.9% 1,000 ML IV SCH ×2 (16:36→18:50)
[2021-03-21 17:52] LABS: Appearance,Urine Turbid (Clear); Bacteria,Urine Few /hpf; Bilirubin,Urine Negative (Negative); Blood,Urine Moderate (Negative); Budding Yeast,Urine Many /hpf; Color,Urine Yellow; Glucose,Urine (UA) Negative (Negative); Ketones,Urine Negative (Negative); Leukocyte Esterase,Urine Large (Negative); Nitrite,Urine Negative (Negative); PH, Urine 6.5 (5.0-8.0); Protein,Urine 1+ (Negative); RBC,Urine 2 /hpf (0-5); Specific Gravity,Urine 1.018 (1.001-1.035); Squamous Epithelial Cell,Urine 2 /hpf (0-4); WBC,Urine >182 /hpf (0-5)
[2021-03-21] MEDS ORDERED: NALOXONE 0.4 MG/ML 1 ML VIAL IV PRN (18:41)
[2021-03-22 07:33] LABS: Glucose,Whole Blood 96 mg/dL (75-99)
[2021-03-22] MEDS ORDERED: NITROGLYCERIN SL TABS 0.4 MG TAB SUBLINGUAL PRN (08:58)
[2021-03-22] MEDS ORDERED: ALBUTEROL NEBULIZED 2.5 MG/3 ML INHALATION PRN ×2 (08:58→15:51)
[2021-03-22] MEDS ORDERED: LEVALBUTEROL INHALATION PRN (08:58)
[2021-03-22] MEDS ORDERED: ALPRAZolam 0.25 MG TAB PO PRN (08:58)
[2021-03-22] MEDS: polyethylene glycoL 3350 17 GM POWD.PACK PO SCH (09:59)
[2021-03-22] MEDS: PREGABALIN 75 MG CAP PO SCH ×2 (09:59→21:33)
[2021-03-22] MEDS: PANTOPRAZOLE 40 MG TABLET PO SCH (09:59)
[2021-03-22] MEDS: ASPIRIN 81 MG PO SCH (09:59)
[2021-03-22] MEDS: POTASSIUM CHLORIDE ER 10 MEQ TAB.ER.PRT PO SCH (10:01)
[2021-03-22] MEDS: amLODIPine 5 MG TAB PO SCH (10:01)
[2021-03-22] MEDS: LORATADINE 10 MG TAB PO SCH (10:01)
[2021-03-22] MEDS: APIXABAN 2.5 MG TABLET PO SCH ×2 (10:01→21:33)
[2021-03-22] MEDS: CARBIDOPA-LEVODOPA 25-100 MG 1 EACH TAB PO SCH ×4 (10:02→21:33)
[2021-03-22] MEDS: LINAGLIPTIN 5 MG TABLET PO SCH (10:03)
[2021-03-22] MEDS: ISOSORBIDE MONONITRATE ER 60 MG TAB.ER.24H PO SCH (10:03)
[2021-03-22] MEDS: carvediloL 6.25 MG TAB PO SCH ×2 (10:04→17:43)
[2021-03-22] MEDS: ESCITALOPRAM 10 MG TAB PO SCH (10:04)
[2021-03-22] MEDS: SODIUM CHLORIDE 0.9% 1,000 ML IV SCH (10:05)
[2021-03-22] MEDS: NON FORMULARY DRUG (Naloxegol Oxalate [Movantik] 25 MG Tablet) PO SCH (10:54)
[2021-03-22 11:46] LABS: Glucose,Whole Blood 200 mg/dL (75-99)
[2021-03-22] MEDS: REPAGLINIDE 1 MG TAB PO SCH ×2 (12:13→17:43)
--- NOTE | 2021-03-22 12:14 | P.HPIM ---
History of Present Illness H&P Date: 03/22/21 HISTORY OF PRESENT ILLNESS This is an 80-year-old female patient of Dr. Magallanes with past medical history of active disease, heart failure, Covid 19 diagnosed in September 2020 treated in the hospital and discharged with family, hypertension, hyperlipidemia, severe persistent asthma, recurrent depression and generalized anxiety disorder, recurrent UTIs, intracranial hemorrhage status post evacuation in September 2020 with residual right facial droop and right leg weakness. Patient had onset of weakness on Thursday and continued to progress to the point she was unable to get up to the bathroom. She ended up urinating on herself at home. She tried to get up but had to slide to the floor and landed on her bottom without injury. No head injury or loss of consciousness. No fever or chills. She denies having any lightheadedness or dizziness. She states she does have increased urinary frequency. No diarrhea. No shortness of breath. No abdominal pain. Patient's grandson was able to help her up and EMS was contacted. Patient has frequent admissions to [facility] with most recent hospitalization March 03 through March 06 for COPD exacerbation and patient was discharged to [facility]. Patient presented to [facility] emergency center. WBC was 8.3, hemoglobin 13.4, platelet count 143. INR 1.0. Sodium 134, potassium 4.3, chloride 98, CO2 29, BUN 36 and creatinine 1.51. Blood sugar 127. Magnesium 2.2. Total bilirubin 2.6, AST 28, ALT 11, alkaline phosphatase 61. Troponin negative. ProBNP 1010. Urinalysis turbid, blood moderate, leukoesterase large, WBCs greater than 182, WBC clumps many. Coronavirus PCR detected. CAT scan of the brain revealed age-related changes of atrophy and probable chronic small vessel ischemia. Sinus disease. EKG is atrial fibrillation with controlled rate. REVIEW OF SYSTEMS Constitutional: No fever, no chills, no night sweats. No weight change. Reports weakness, Reports fatigue no lethargy. No daytime sleepiness. EENT: No headache. No blurred vision or double vision, no loss of vision. No loss of Hearing. No nasal drainage or congestion. No epistaxis. No sore throat. Lungs: No shortness of breath, cough, no sputum production. No wheezing. Cardiovascular: No chest pain, no lower extremity edema. No palpitations. No paroxysmal nocturnal dyspnea. No orthopnea. No lightheadedness or dizziness. No syncopal episodes. Abdominal: No abdominal pain. No nausea, vomiting. No diarrhea. No constipation. No bloody or tarry stools.. No loss of appetite. Genitourinary: No dysuria, increased frequency, urgency. No urinary retention. Musculoskeletal: No myalgias. Reports muscle weakness, no gait dysfunction, no frequent falls. No back pain. No neck pain. Integumentary: No wounds, no lesions. No rash or pruritus. No unusual bruising. No change in hair or nails. Neurologic: No aphasia. No facial droop. No change in mentation. No head injury. No headache. No paralysis. No paresthesia. Psychiatric: No depression. No anxiety. No mood swings. Endocrine: No abnormal blood sugars. No weight change. No excessive sweating or thirst. No cold intolerance. MEDICAL HISTORY Parkinson's disease Chronic atrial fibrillation Chronic diastolic heart failure Severe persistent asthma Chronic kidney disease stage III COPD Diabetes mellitus type 2 Gastroesophageal reflux disease Hypertension Hyperlipidemia Diabetic neuropathy Generalized anxiety disorder Recurrent depression Intracranial hemorrhage status post evacuation in September 2020 SOCIAL HISTORY Patient is a lifelong nonsmoker. No alcohol use, no illicit drug use. Patient lives at [facility]. Patient does not have home oxygen, no nebulizer, no CPAP. She has been at [facility] in the past for rehab as well as recent admission to [facility]. FAMILY HISTORY Mother at age 68 from myocardial infarction with history of diabetes. Father at age 74 from myocardial infarction. Patient is 2 sisters and one has passed from Darline Gehrig's disease. Patient does not have any children. PHYSICAL EXAMINATION Gen: This is an obese 80-year-old female. Patient is resting in bed appears to be comfortable and in no acute distress. HEENT: Head is atraumatic, normocephalic. Pupils equal, round. Sclerae is anicteric. NECK: Supple. No JVD. No lymphadenopathy. No thyromegaly. LUNGS: Decreased bilaterally. No wheezes or rhonchi. No intercostal retractions. HEART: Regular rate and rhythm. Systolic murmur at the apex. ABDOMEN: Soft. Bowel sounds are present. No masses. No tenderness. EXTREMITIES: No pedal edema. No calf tenderness. NEUROLOGICAL: Patient is awake, alert and oriented x3. Cranial nerves 2 through 12 are grossly intact. ASSESSMENT AND PLAN 1. Acute urinary tract infection with significant generalized weakness. Patient started on ceftriaxone 1 g daily, urine culture and blood culture to be obtained, consult with infectious disease. 2. Acute kidney injury. Continue IV fluid at 50 mL per hour for 24 hours and then discontinued due to underlying heart failure. 3. COVID-19 infection in September with persistent positive test. Patient is without Covid 19 symptoms. 4. Chronic atrial fibrillation. Continue eliquis 2.5 mg twice daily and Coreg 6.25 mg twice daily, 5. Parkinson's disease. Continue Sinemet 25/100 one tablet 4 times daily. 6. Hypertension. Continue Norvasc 5 mg daily, Coreg 6.25 mg twice daily. 7. Chronic diastolic heart failure without exacerbation. Lasix and Aldactone o n hold for now. Discontinue IV fluids after 24 hours. 8. Severe persistent asthma and COPD without exacerbation. Continue albuterol every 6 hours as needed, Singulair 10 mg at bedtime. 9. Chronic kidney disease stage III. 10. Diabetes mellitus type 2. Continue Tradjenta 5 mg daily, Prandin 0.5 mg 3 times daily, NovoLog scale. 11. Diabetic neuropathy. Continue Lyrica 150 mg twice daily. 12. Hyperlipidemia. Continue Lipitor 10 mg at bedtime. 13. Generalized anxiety disorder and recurrent depression. Continue Xanax or 0.25 mg every 12 hours as needed, Lexapro 10 mg daily. 14. Recurrent urinary tract infections. 15. Intracranial hemorrhage status post evacuation in September 2020 with residual right facial droop and right leg weakness. 16. Gastroesophageal reflux disease and GI prophylaxis. Continue Protonix 40 mg daily. 17. DVT prophylaxis. Eliquis. Patient will be admitted to the hospital for a minimum of 2 night stay. DISCHARGE PLAN Probable need for subacute rehab. Consult with PT and OT.. Impression and plan of care have been directed as dictated by the signing physician. Kerline Wright nurse practitioner acting as scribe for signing physician. Past Medical History Past Medical History: Asthma, Chest Pain / Angina, Diabetes Mellitus, Hyperlipidemia, Hypertension, Respiratory Disorder Additional Past Medical History / Comment(s): Migraine, Varicose Veins, Br onchitis/Pneumonia/Sinus Problems, January 17 had complete right shoulder surgery - problem with blood clots after surgery History of Any Multi-Drug Resistant Organisms: None Reported Past Surgical History: Cholecystectomy, Heart Catheterization, Joint Replacement, Tonsillectomy Additional Past Surgical History / Comment(s): Bilateral Knee Replacement, Bilateral Rotator Cuff RepairComplete right shoulder surgery - January 17, 2015. Cardiac Catheterization - 2015 Past Anesthesia/Blood Transfusion Reactions: No Reported Reaction Past Psychological History: Anxiety, Depression Smoking Status: Never smoker Past Alcohol Use History: None Reported Past Drug Use History: None Reported - Past Family History Son(s) Family Medical History: Myocardial Infarction ([place]) Additional Family Medical History / Comment(s): son was adopted Sister(s) Additional Family Medical History / Comment(s): heart ablation Mother Family Medical History: Myocardial Infarction ([place]) Father Family Medical History: Myocardial Infarction ([place]) Medications and Allergies Home Medications Medication Instructions Recorded Confirmed Type Levalbuterol Hfa Inhaler [Xopenex 1 - 2 puff INHALATION RT-BID PRN 01/30/14 03/21/21 History Hfa Inhaler] Atorvastatin Calcium [Lipitor] 10 mg PO HS 12/29/17 03/21/21 History Furosemide [Lasix] 40 mg PO BID 12/29/17 03/21/21 History HYDROcodone/APAP 5-325MG [[place] 1 tab PO Q6H PRN 12/29/17 03/21/21 History 5-325] Aspirin EC [Ecotrin Low Dose] 81 mg PO DAILY 11/18/18 03/21/21 History Isosorbide Mononitrate ER [Imdur] 60 mg PO DAILY 11/18/18 03/21/21 History Naloxegol Oxalate [Movantik] 25 mg PO DAILY 11/18/18 03/21/21 History Polyethylene Glycol 3350 [Clearlax] 17 gm PO DAILY 11/18/18 03/21/21 History Pregabalin [Lyrica] 150 mg PO BID 11/18/18 03/21/21 History ALPRAZolam [Xanax] 0.25 mg PO Q12H PRN 03/21/21 03/21/21 History Albuterol Sulfate [Ventolin HFA] 2 puff INHALATION RT-Q6H PRN 03/21/21 03/21/21 History Apixaban [Eliquis] 2.5 mg PO BID 03/21/21 03/21/21 History Carbidopa-Levodopa 25-100 mg 1 tab PO QID 03/21/21 03/21/21 History [Sinemet 25-100 mg] Cetirizine HCl [Zyrtec] 10 mg PO DAILY 03/21/21 03/21/21 History Escitalopram [Lexapro] 10 mg PO DAILY 03/21/21 03/21/21 History Montelukast [Singulair] 10 mg PO HS 03/21/21 03/21/21 History Nitroglycerin Sl Tabs [Nitrostat] 0.4 mg SL Q5M PRN 03/21/21 03/21/21 History Pantoprazole Sodium [Protonix] 40 mg PO DAILY 03/21/21 03/21/21 History Potassium Chloride ER [K-Dur 10] 10 meq PO DAILY 03/21/21 03/21/21 History Repaglinide [Prandin] 0.5 mg PO AC-TID 03/21/21 03/21/21 History Spironolactone 25 mg PO DAILY 03/21/21 03/21/21 History amLODIPine [Norvasc] 5 mg PO DAILY 03/21/21 03/21/21 History carvediloL [Coreg] 6.25 mg PO BID 03/21/21 03/21/21 History sitaGLIPtin [Januvia] 50 mg PO DAILY 03/21/21 03/21/21 History Allergies Allergy/AdvReac Type Severity Reaction Status Date / Time albuterol Allergy Rash/Hives Verified 03/21/21 17:25 carbamazepine [From Tegretol] Allergy Rash/Hives Verified 03/21/21 17:25 carisoprodol [From Soma] Allergy Rash/Hives Verified 03/21/21 17:25 ciprofloxacin [From Cipro] Allergy Rash/Hives Verified 03/21/21 17:25 ciprofloxacin HCl Allergy Rash/Hives Verified 03/21/21 17:25 [From Cipro] rice Allergy Unknown Verified 03/21/21 17:25 Sulfa (Sulfonamide Allergy Rash/Hives Verified 03/21/21 17:25 Antibiotics) sulfamethoxazole Allergy Unknown Verified 03/21/21 17:25 [From Bactrim] trimethoprim [From Bactrim] Allergy Unknown Verified 03/21/21 17:25 doxycycline AdvReac Nausea & Verified 03/21/21 17:25 Vomiting egg AdvReac Nausea & Verified 03/21/21 17:25 Vomiting & Diarrhea artificial sweetner in pop Allergy Rash/Hives Uncoded 03/21/21 17:25 Physical Exam Vitals: Vital Signs Temp Pulse Pulse Resp BP BP Pulse Ox 03/22/21 02:00 97.8 F 84 12 135/90 96 03/21/21 23:06 97.6 F 88 18 131/90 95 03/21/21 21:45 97.6 F 88 12 131/90 94 L 03/21/21 19:03 90 18 121/86 96 03/21/21 17:20 90 18 152/90 96 03/21/21 16:00 84 18 136/77 96 03/21/21 14:02 97.7 F 80 14 111/88 94 L Intake and Output 03/21/21 03/22/21 03/22/21 22:59 06:59 14:59 Other: Voiding Method Diaper # Voids 1 Weight 108.862 kg Results CBC & Chem 7: 03/21/21 15:50 03/21/21 15:50 Labs: Abnormal Lab Results - Last 24 Hours (Table) 03/21/21 03/21/21 03/21/21 Range/Units 15:50 15:50 15:50 RDW 18.6 H (11.5-15.5) % Plt Count 143 L (150-450) k/uL Lymphocytes # 0.8 L (1.0-4.8) k/uL APTT 19.2 L (22.0-30.0) sec Sodium 134 L (137-145) mmol/L BUN 36 H (7-17) mg/dL Creatinine 1.51 H (0.52-1.04) mg/dL Glucose 127 H (74-99) mg/dL Total Bilirubin 2.6 H (0.2-1.3) mg/dL Total Protein 6.2 L (6.3-8.2) g/dL Urine Appearance (Clear) Urine Protein (Negative) Urine Blood (Negative) Ur Leukocyte Esterase (Negative) Urine WBC (0-5) /hpf Urine WBC Clumps (None) /hpf Urine Bacteria (None) /hpf Urine Yeast (Budding) (None) /hpf Coronavirus (PCR) (Not Detectd) 03/21/21 03/21/21 Range/Units 17:38 20:18 RDW (11.5-15.5) % Plt Count (150-450) k/uL Lymphocytes # (1.0-4.8) k/uL APTT (22.0-30.0) sec Sodium (137-145) mmol/L BUN (7-17) mg/dL Creatinine (0.52-1.04) mg/dL Glucose (74-99) mg/dL Total Bilirubin (0.2-1.3) mg/dL Total Protein (6.3-8.2) g/dL Urine Appearance Turbid H (Clear) Urine Protein 1+ H (Negative) Urine Blood Moderate H (Negative) Ur Leukocyte Esterase Large H (Negative) Urine WBC >182 H (0-5) /hpf Urine WBC Clumps Many H (None) /hpf Urine Bacteria Few H (None) /hpf Urine Yeast (Budding) Many H (None) /hpf Coronavirus (PCR) Detected A (Not Detectd) Thrombosis Risk Factor Assmnt - Choose All That Apply Any of the Below Risk Factors Present?: Yes Each Factor Represents 1 point: Obesity (BMI >25), Varicose veins Other Risk Factors: Yes Each Risk Factor Represents 2 Points: Patient confined to bed Each Risk Factor Represents 3 Points: Age 75 years or older Thrombosis Risk Factor Assessment Total Risk Factor Score: 7 Thrombosis Risk Factor Assessment Level: High Risk
[2021-03-22] MEDS: INSULIN ASPART (NovoLOG) 100 UNIT/ML VIAL SQ SCH ×3 (12:16→21:33)
[2021-03-22] MEDS: ALBUTEROL HFA INHALER INHALATION PRN (17:18)
[2021-03-22 17:22] LABS: Glucose,Whole Blood 124 mg/dL (75-99)
[2021-03-22 20:28] LABS: Glucose,Whole Blood 231 mg/dL (75-99)
[2021-03-22 21:25] LABS: Glucose,Whole Blood 235 mg/dL (75-99)
[2021-03-22] MEDS: ATORVASTATIN 10 MG TAB PO SCH (21:33)
[2021-03-22] MEDS: MONTELUKAST 10 MG TAB PO SCH (21:33)
[2021-03-23 07:39] LABS: Glucose,Whole Blood 81 mg/dL (75-99)
--- NOTE | 2021-03-23 08:19 | P.PN ---
Subjective Progress Note Date: 03/23/21 HISTORY OF PRESENT ILLNESS This is an 80-year-old female patient of Dr. Magallanes with past medical history of active disease, heart failure, Covid 19 diagnosed in September 2020 treated in the hospital and discharged with family, hypertension, hyperlipidemia, severe persistent asthma, recurrent depression and generalized anxiety disorder, recurrent UTIs, intracranial hemorrhage status post evacuation in September 2020 with residual right facial droop and right leg weakness. Patient had onset of weakness on Thursday and continued to progress to the point she was unable to get up to the bathroom. She ended up urinating on herself at home. She tried to get up but had to slide to the floor and landed on her bottom without injury. No head injury or loss of consciousness. No fever or chills. She denies having any lightheadedness or dizziness. She states she does have increased urinary frequency. No diarrhea. No shortness of breath. No abdominal pain. Patient's grandson was able to help her up and EMS was contacted. Patient has frequent admissions to [facility] with most recent hospitalization March 03 through March 06 for COPD exacerbation and patient was discharged to [facility]. Patient presented to [facility] emergency center. WBC was 8.3, hemoglobin 13.4, platelet count 143. INR 1.0. Sodium 134, potassium 4.3, chloride 98, CO2 29, BUN 36 and creatinine 1.51. Blood sugar 127. Magnesium 2.2. Total bilirubin 2.6, AST 28, ALT 11, alkaline phosphatase 61. Troponin negative. ProBNP 1010. Urinalysis turbid, blood moderate, leukoesterase large, WBCs greater than 182, WBC clumps many. Coronavirus PCR detected. CAT scan of the brain revealed age-related changes of atrophy and probable chronic small vessel ischemia. Sinus disease. EKG is atrial fibrillation with controlled rate. 03/23: Patient is found resting comfortably in bed. Patient states that she is able to go home and take care of herself. She signed herself out of [facility] recently. Spoke in length with the patient that her home placement will need to be reevaluated. Sister is concerned that caregiver at home is not able to provide enough care to assist her. Social work PTOT for. At this time [facility] and [facility] have declined admission. She remains afebrile, heart rate 85, blood pressure 112/73, respirations 16, pulse ox 94% on room air. REVIEW OF SYSTEMS Constitutional: No fever, no chills, no night sweats. No weight change. Reports weakness, Reports fatigue no lethargy. No daytime sleepiness. EENT: No headache. No blurred vision or double vision, no loss of vision. No loss of Hearing. No nasal drainage or congestion. No epistaxis. No sore throat. Lungs: No shortness of breath, cough, no sputum production. No wheezing. Cardiovascular: No chest pain, no lower extremity edema. No palpitations. No paroxysmal nocturnal dyspnea. No orthopnea. No lightheadedness or dizziness. No syncopal episodes. Abdominal: No abdominal pain. No nausea, vomiting. No diarrhea. No constipation. No bloody or tarry stools.. No loss of appetite. Genitourinary: No dysuria, increased frequency, urgency. No urinary retention. Musculoskeletal: No myalgias. Reports muscle weakness, no gait dysfunction, no frequent falls. No back pain. No neck pain. Integumentary: No wounds, no lesions. No rash or pruritus. No unusual bruising. No change in hair or nails. Neurologic: No aphasia. No facial droop. No change in mentation. No head injury. No headache. No paralysis. No paresthesia. Psychiatric: No depression. No anxiety. No mood swings. Endocrine: No abnormal blood sugars. No weight change. No excessive sweating or thirst. No cold intolerance. MEDICAL HISTORY Parkinson's disease Chronic atrial fibrillation Chronic diastolic heart failure Severe persistent asthma Chronic kidney disease stage III COPD Diabetes mellitus type 2 Gastroesophageal reflux disease Hypertension Hyperlipidemia Diabetic neuropathy Generalized anxiety disorder Recurrent depression Intracranial hemorrhage status post evacuation in September 2020 PHYSICAL EXAMINATION Gen: This is an obese 80-year-old female. Patient is resting in bed appears to be comfortable and in no acute distress. HEENT: Head is atraumatic, normocephalic. Pupils equal, round. Sclerae is anicteric. NECK: Supple. No JVD. No lymphadenopathy. No thyromegaly. LUNGS: Decreased bilaterally. No wheezes or rhonchi. No intercostal retractions. HEART: Regular rate and rhythm. Systolic murmur at the apex. ABDOMEN: Soft. Bowel sounds are present. No masses. No tenderness. EXTREMITIES: No pedal edema. No calf tenderness. NEUROLOGICAL: Patient is awake, alert and oriented x3. Cranial nerves 2 through 12 are grossly intact. ASSESSMENT AND PLAN 1. Acute urinary tract infection with significant generalized weakness. Patient started on ceftriaxone 1 g daily, urine culture and blood culture to be obtained, consult with infectious disease. 2. Acute kidney injury. Continue IV fluid at 50 mL per hour for 24 hours and then discontinued due to underlying heart failure. 3. COVID-19 infection in September with persistent positive test. Patient is without Covid 19 symptoms. 4. Chronic atrial fibrillation. Continue eliquis 2.5 mg twice daily and Coreg 6.25 mg twice daily, 5. Parkinson's disease. Continue Sinemet 25/100 one tablet 4 times daily. 6. Hypertension. Continue Norvasc 5 mg daily, Coreg 6.25 mg twice daily. 7. Chronic diastolic heart failure without exacerbation. Lasix and Aldactone on hold for now. Discontinue IV fluids after 24 hours. 8. Severe persistent asthma and COPD without exacerbation. Continue albuterol every 6 hours as needed, Singulair 10 mg at bedtime. 9. Chronic kidney disease stage III. 10. Diabetes mellitus type 2. Continue Tradjenta 5 mg daily, Prandin 0.5 mg 3 times daily, NovoLog scale. 11. Diabetic neuropathy. Continue Lyrica 150 mg twice daily. 12. Hyperlipidemia. Continue Lipitor 10 mg at bedtime. 13. Generalized anxiety disorder and recurrent depression. Continue Xanax or 0.25 mg every 12 hours as needed, Lexapro 10 mg daily. 14. Recurrent urinary tract infections. 15. Intracranial hemorrhage status post evacuation in September 2020 with residual right facial droop and right leg weakness. 16. Gastroesophageal reflux disease and GI prophylaxis. Continue Protonix 40 mg daily. 17. DVT prophylaxis. Eliquis. Patient will be admitted to the hospital for a minimum of 2 night stay. Impression and plan of care have been directed as dictated by the signing physician. Ramonita Bryant nurse practitioner acting as scribe for signing physician. Objective - Vital Signs Vital signs: Vital Signs Temp 98.4 F 03/23/21 07:40 Pulse 85 03/23/21 07:40 Resp 16 03/23/21 07:40 BP 112/73 03/23/21 07:40 Pulse Ox 94 L 03/23/21 07:40 Intake & Output 03/22/21 03/23/21 03/23/21 18:59 06:59 18:59 Intake Total 720 Output Total 600 750 Balance 120 -750 Intake: Oral 720 Output: Urine 600 750 Other: Voiding Method Bedpan Indwelling Catheter Diaper # Voids 3 # Bowel Movements 1 - Labs CBC & Chem 7: 03/21/21 15:50 03/21/21 15:50 Labs: Abnormal Lab Results - Last 24 Hours (Table) 03/22/21 03/22/21 03/22/21 Range/Units 11:45 17:20 20:26 POC Glucose (mg/dL) 200 H 124 H 231 H (75-99) mg/dL 03/22/21 Range/Units 21:23 POC Glucose (mg/dL) 235 H (75-99) mg/dL Microbiology - Last 24 Hours (Table) 03/22/21 14:37 Urine Culture - Preliminary Urine,Catheterized
[2021-03-23] MEDS: INSULIN ASPART (NovoLOG) 100 UNIT/ML VIAL SQ SCH ×4 (08:28→20:34)
[2021-03-23] MEDS: ALBUTEROL HFA INHALER INHALATION PRN ×3 (08:58→16:29)
--- NOTE | 2021-03-23 09:25 | CONS ---
CONSULTATION DATE OF SERVICE: 03/22/2021 REASON FOR CONSULTATION: Recurrent urinary tract infection. HISTORY OF PRESENT ILLNESS: The patient is an 80-year-old female with multiple comorbidities including intracranial hemorrhage, Covid-19 in September of this year, with symptoms of right facial droop and right neck weakness, also with a history of recurrent UTI. The patient presented to the ER at [facility] yesterday afternoon for evaluation of generalized weakness. Currently started getting some weakness the day before presentation to hospital which progressed into the day. On presentation to the hospital the patient was unable to get up to go to the bathroom. The patient did urinate on herself and the patient initially started stand up and slid to the floor and landed on her bottom, however, did not sustain any injury. With these symptoms, the patient was evaluated by the ER physician. On arrival to the ER, the patient was afebrile and no fever has been recorded. Subsequently the patient did have a normal white count. BUN and creatinine were mildly elevated. Liver enzymes normal except glucose elevated. Patient did have positive UA with large leukocyte esterase more than 120 WBCs. Gomez PCR came back positive. The patient did have history of COVID-19 pneumonia in September of this year. Chest x-ray was reported negative for acute pulmonary process. Patient was started on Rocephin and has been admitted to the hospital. Infectious Disease was consulted for further management of antibiotic therapy. This patient has a history of recurrent UTI. REVIEW OF SYSTEMS: Positive points have been mentioned in HPI. Rest of systems are negative. PAST MEDICAL HISTORY: Asthma, diabetes mellitus, hyperlipidemia, hypertension, bronchitis, pneumonia, intracranial hemorrhage, recurrent UTI. PAST SURGICAL HISTORY: Cholecystectomy, heart catheterization, bilateral knee replacement, bilateral rotator cuff repair, heart catheterization. SOCIAL HISTORY: No smoking, no drinking or drug use. FAMILY HISTORY: A son with a history of IN. ALLERGIES: To multiple medications as documented in the chart including CIPRO and SULFA. MEDICATIONS: The patient is currently on Dundas, Ventolin, Xanax, Norvasc, Eliquis, aspirin, Lipitor, Rocephin 1 g Lexapro, NovoLog, Imdur, Tradjenta, Singulair, Narcan, Nitrostat. PHYSICAL EXAMINATION: Blood pressure is 135/90 with a pulse of 84, temperature of 97.8. She is 96% on room air. GENERAL DESCRIPTION: An elderly female lying in in no distress. No tachypnea or accessory muscles of respiration use. HEENT: Examination shows slight pallor. No scleral icterus. Oral mucous membrane is dry. NECK: Trachea central, no thyromegaly. LUNGS: Unlabored breathing, clear to auscultation anteriorly. No wheeze or crackle. HEART: S1 and S2. Regular rate and rhythm. ABDOMEN: Soft no tenderness, no guarding or rigidity. EXTREMITIES: No edema of feet. NEUROLOGIC: The patient is awake and alert and oriented times two. Mood and affect normal. LABS: Hemoglobin 13.4, white count 8.3, BUN of 36, creatinine 1.15. Electrolytes have been normal. Bilirubin was elevated. White blood cell normal. Chest x-ray was negative for any acute infiltrate. Did have a positive UA. DIAGNOSTIC IMPRESSION AND PLAN: 1. Patient presenting to the hospital with generalized weakness which is likely multifactorial in this patient who does have a positive UA and urine symptoms with concern for a symptomatic urinary tract infection, likely from enteric Gram- negative pathogen. 2. Patient postmenopausal status, likely contributing to some of his recurrent UTI. 3. Multiple antibiotic allergies with number of antibiotics safe to use. PLAN: 1. Rocephin 1 g IV piggyback daily to continue. 2. Gentle hydration. 3. Interval estrogen may be of therapeutic benefit in this patient with recurrent urinary tract infection in the outpatient setting. 4. We will follow on her clinical condition and culture to further adjust medication if needed. Thank you for this consultation. We will follow this patient along with you. MMODL / IJN: [id number] /
[2021-03-23] MEDS: SODIUM CHLORIDE 0.9% 1,000 ML IV SCH (09:37)
[2021-03-23] MEDS: LORATADINE 10 MG TAB PO SCH (09:49)
[2021-03-23] MEDS: PREGABALIN 75 MG CAP PO SCH ×2 (09:49→20:34)
[2021-03-23] MEDS: APIXABAN 2.5 MG TABLET PO SCH ×2 (09:49→20:34)
[2021-03-23] MEDS: amLODIPine 5 MG TAB PO SCH (09:49)
[2021-03-23] MEDS: POTASSIUM CHLORIDE ER 10 MEQ TAB.ER.PRT PO SCH (09:49)
[2021-03-23] MEDS: ASPIRIN 81 MG PO SCH (09:49)
[2021-03-23] MEDS: polyethylene glycoL 3350 17 GM POWD.PACK PO SCH (09:50)
[2021-03-23] MEDS: PANTOPRAZOLE 40 MG TABLET PO SCH (09:50)
[2021-03-23] MEDS: REPAGLINIDE 1 MG TAB PO SCH ×3 (09:51→18:08)
[2021-03-23] MEDS: CARBIDOPA-LEVODOPA 25-100 MG 1 EACH TAB PO SCH ×4 (09:51→20:34)
[2021-03-23] MEDS: ESCITALOPRAM 10 MG TAB PO SCH (09:52)
[2021-03-23] MEDS: ISOSORBIDE MONONITRATE ER 60 MG TAB.ER.24H PO SCH (09:52)
[2021-03-23] MEDS: LINAGLIPTIN 5 MG TABLET PO SCH (09:52)
[2021-03-23] MEDS: carvediloL 6.25 MG TAB PO SCH ×2 (09:53→23:16)
[2021-03-23] MEDS: NON FORMULARY DRUG (Naloxegol Oxalate [Movantik] 25 MG Tablet) PO SCH (09:56)
[2021-03-23 11:57] LABS: Glucose,Whole Blood 183 mg/dL (75-99)
[2021-03-23 17:28] LABS: Glucose,Whole Blood 105 mg/dL (75-99)
[2021-03-23 20:31] LABS: Glucose,Whole Blood 111 mg/dL (75-99)
[2021-03-23] MEDS: MONTELUKAST 10 MG TAB PO SCH (20:33)
[2021-03-23] MEDS: ATORVASTATIN 10 MG TAB PO SCH (20:34)
[2021-03-23] MEDS: HYDROcodone/APAP 5-325MG 1 EACH TAB PO PRN (23:35)
--- NOTE | 2021-03-24 02:36 | PN ---
PROGRESS NOTE DATE OF SERVICE: 03/23/2021. REASON FOR FOLLOWUP: Recurrent urinary tract infection. INTERVAL HISTORY: Patient is afebrile. The patient is slightly more awake, alert. She is breathing comfortably. Denies having any chest pain, shortness of breath or cough. No abdominal pain, no diarrhea. PHYSICAL EXAMINATION: Blood pressure 101/66, pulse of 82, temperature 97.4. She is 96% on room air. The patient is an elderly female lying in bed, in no distress. Respiratory system: Unlabored breathing, clear to auscultation anteriorly. Heart: S1, S2. Regular abdomen. LABS: Urine showing a Gram-negative bacilli. DIAGNOSTIC IMPRESSION AND PLAN: Patient with acute urinary tract infection with multiple antibiotic allergies. Patient is currently on Rocephin, to continue while waiting for the culture to finalize and monitor clinical course closely. MMCHERYLL / IJN: [id number] /
[2021-03-24] MEDS: ALBUTEROL HFA INHALER INHALATION PRN ×3 (07:32→15:33)
[2021-03-24 07:38] LABS: Glucose,Whole Blood 72 mg/dL (75-99)
[2021-03-24] MEDS: INSULIN ASPART (NovoLOG) 100 UNIT/ML VIAL SQ SCH ×4 (08:09→21:06)
[2021-03-24] MEDS: REPAGLINIDE 1 MG TAB PO SCH ×3 (08:18→17:57)
[2021-03-24] MEDS: carvediloL 6.25 MG TAB PO SCH ×2 (08:18→17:29)
[2021-03-24] MEDS: polyethylene glycoL 3350 17 GM POWD.PACK PO SCH (09:23)
[2021-03-24] MEDS: PREGABALIN 75 MG CAP PO SCH ×2 (09:24→21:00)
[2021-03-24] MEDS: ASPIRIN 81 MG PO SCH (09:24)
[2021-03-24] MEDS: LORATADINE 10 MG TAB PO SCH (09:24)
[2021-03-24] MEDS: PANTOPRAZOLE 40 MG TABLET PO SCH (09:24)
[2021-03-24] MEDS: amLODIPine 5 MG TAB PO SCH (09:24)
[2021-03-24] MEDS: APIXABAN 2.5 MG TABLET PO SCH ×2 (09:25→21:00)
[2021-03-24] MEDS: POTASSIUM CHLORIDE ER 10 MEQ TAB.ER.PRT PO SCH (09:25)
[2021-03-24] MEDS: LINAGLIPTIN 5 MG TABLET PO SCH (09:26)
[2021-03-24] MEDS: CARBIDOPA-LEVODOPA 25-100 MG 1 EACH TAB PO SCH ×4 (09:26→21:00)
[2021-03-24] MEDS: ISOSORBIDE MONONITRATE ER 60 MG TAB.ER.24H PO SCH (09:26)
[2021-03-24] MEDS: ESCITALOPRAM 10 MG TAB PO SCH (09:26)
[2021-03-24] MEDS: NON FORMULARY DRUG (Naloxegol Oxalate [Movantik] 25 MG Tablet) PO SCH (09:27)
--- NOTE | 2021-03-24 10:55 | P.PN ---
Subjective Progress Note Date: 03/24/21 HISTORY OF PRESENT ILLNESS This is an 80-year-old female patient of Dr. Magallanes with past medical history of active disease, heart failure, Covid 19 diagnosed in September 2020 treated in the hospital and discharged with family, hypertension, hyperlipidemia, severe persistent asthma, recurrent depression and generalized anxiety disorder, recurrent UTIs, intracranial hemorrhage status post evacuation in September 2020 with residual right facial droop and right leg weakness. Patient had onset of weakness on Thursday and continued to progress to the point she was unable to get up to the bathroom. She ended up urinating on herself at home. She tried to get up but had to slide to the floor and landed on her bottom without injury. No head injury or loss of consciousness. No fever or chills. She denies having any lightheadedness or dizziness. She states she does have increased urinary frequency. No diarrhea. No shortness of breath. No abdominal pain. Patient's grandson was able to help her up and EMS was contacted. Patient has frequent admissions to [facility] with most recent hospitalization March 03 through March 06 for COPD exacerbation and patient was discharged to [facility]. Patient presented to [facility] emergency center. WBC was 8.3, hemoglobin 13.4, platelet count 143. INR 1.0. Sodium 134, potassium 4.3, chloride 98, CO2 29, BUN 36 and creatinine 1.51. Blood sugar 127. Magnesium 2.2. Total bilirubin 2.6, AST 28, ALT 11, alkaline phosphatase 61. Troponin negative. ProBNP 1010. Urinalysis turbid, blood moderate, leukoesterase large, WBCs greater than 182, WBC clumps many. Coronavirus PCR detected. CAT scan of the brain revealed age-related changes of atrophy and probable chronic small vessel ischemia. Sinus disease. EKG is atrial fibrillation with controlled rate. 03/23: Patient is found resting comfortably in bed. Patient states that she is able to go home and take care of herself. She signed herself out of [facility] recently. Spoke in length with the patient that her home placement will need to be reevaluated. Sister is concerned that caregiver at home is not able to provide enough care to assist her. Social work PTOT for. At this time [facility] and [facility] have declined admission. She remains afebrile, heart rate 85, blood pressure 112/73, respirations 16, pulse ox 94% on room air. 03/24: Patient is found resting comfortably in bed. Patient is upset that she is not able to go home and care for herself. She is upset that her family has not been an. Patient does not run to return to the extended care facility. She'll be seen by social work to assist with possible placement and/or guardianship. Patient remains afebrile, pulse rate 76, respirations 16, blood pressure 121/81, pulse ox 96% on room air. REVIEW OF SYSTEMS Constitutional: No fever, no chills, no night sweats. No weight change. Reports weakness, Reports fatigue no lethargy. No daytime sleepiness. EENT: No headache. No blurred vision or double vision, no loss of vision. No loss of Hearing. No nasal drainage or congestion. No epistaxis. No sore throat. Lungs: No shortness of breath, cough, no sputum production. No wheezing. Cardiovascular: No chest pain, no lower extremity edema. No palpitations. No paroxysmal nocturnal dyspnea. No orthopnea. No lightheadedness or dizziness. No syncopal episodes. Abdominal: No abdominal pain. No nausea, vomiting. No diarrhea. No co nstipation. No bloody or tarry stools.. No loss of appetite. Genitourinary: No dysuria, increased frequency, urgency. No urinary retention. Musculoskeletal: No myalgias. Reports muscle weakness, no gait dysfunction, no frequent falls. No back pain. No neck pain. Integumentary: No wounds, no lesions. No rash or pruritus. No unusual bruising. No change in hair or nails. Neurologic: No aphasia. No facial droop. No change in mentation. No head injury. No headache. No paralysis. No paresthesia. Psychiatric: No depression. No anxiety. No mood swings. Endocrine: No abnormal blood sugars. No weight change. No excessive sweating or thirst. No cold intolerance. MEDICAL HISTORY Parkinson's disease Chronic atrial fibrillation Chronic diastolic heart failure Severe persistent asthma Chronic kidney disease stage III COPD Diabetes mellitus type 2 Gastroesophageal reflux disease Hypertension Hyperlipidemia Diabetic neuropathy Generalized anxiety disorder Recurrent depression Intracranial hemorrhage status post evacuation in September 2020 PHYSICAL EXAMINATION Gen: This is an obese 80-year-old female. Patient is resting in bed appears to be comfortable and in no acute distress. HEENT: Head is atraumatic, normocephalic. Pupils equal, round. Sclerae is anicteric. NECK: Supple. No JVD. No lymphadenopathy. No thyromegaly. LUNGS: Decreased bilaterally. No wheezes or rhonchi. No intercostal retractions. HEART: Regular rate and rhythm. Systolic murmur at the apex. ABDOMEN: Soft. Bowel sounds are present. No masses. No tenderness. EXTREMITIES: No pedal edema. No calf tenderness. NEUROLOGICAL: Patient is awake, alert and oriented x3. Cranial nerves 2 through 12 are grossly intact. ASSESSMENT AND PLAN 1. Acute urinary tract infection with significant generalized weakness. Patient started on ceftriaxone 1 g daily, urine culture and blood culture to be obtained, infectious disease consult appreciated 2. Acute kidney injury. Continue IV fluid at 50 mL per hour for 24 hours and then discontinued due to underlying heart failure. 3. COVID-19 infection in September with persistent positive test. Patient is without Covid 19 symptoms. 4. Chronic atrial fibrillation. Continue eliquis 2.5 mg twice daily and Coreg 6.25 mg twice daily, 5. Parkinson's disease. Continue Sinemet 25/100 one tablet 4 times daily. 6. Hypertension. Continue Norvasc 5 mg daily, Coreg 6.25 mg twice daily. 7. Chronic diastolic heart failure without exacerbation. Lasix and Aldactone on hold for now. Discontinue IV fluids after 24 hours. 8. Severe persistent asthma and COPD without exacerbation. Continue albuterol every 6 hours as needed, Singulair 10 mg at bedtime. 9. Chronic kidney disease stage III. 10. Diabetes mellitus type 2. Continue Tradjenta 5 mg daily, Prandin 0.5 mg 3 times daily, NovoLog scale. 11. Diabetic neuropathy. Continue Lyrica 150 mg twice daily. 12. Hyperlipidemia. Continue Lipitor 10 mg at bedtime. 13. Generalized anxiety disorder and recurrent depression. Continue Xanax or 0.25 mg every 12 hours as needed, Lexapro 10 mg daily. 14. Recurrent urinary tract infections. 15. Intracranial hemorrhage status post evacuation in September 2020 with residual right facial droop and right leg weakness. 16. Gastroesophageal reflux disease and GI prophylaxis. Continue Protonix 40 mg daily. 17. DVT prophylaxis. Eliquis. Patient will be admitted to the hospital for a minimum of 2 night stay. Discharge plan: Possible placement to ECF Impression and plan of care have been directed as dictated by the signing physician. Ramonita Bryant nurse practitioner acting as scribe for signing physician. Objective - Vital Signs Vital signs: Vital Signs Temp 97.7 F 03/24/21 07:35 Pulse 76 03/24/21 10:20 Resp 16 03/24/21 10:20 BP 121/80 03/24/21 07:35 Pulse Ox 96 03/24/21 07:35 Intake & Output 03/23/21 03/24/21 03/24/21 18:59 06:59 18:59 Intake Total 240 Output Total 900 1600 Balance -660 -1600 Intake: Oral 240 Output: Urine 900 1600 Other: Voiding Method Indwelling Catheter Indwelling Catheter Indwelling Catheter # Bowel Movements 0 - Labs CBC & Chem 7: 03/21/21 15:50 03/21/21 15:50 Labs: Abnormal Lab Results - Last 24 Hours (Table) 03/23/21 03/23/21 03/23/21 Range/Units 11:55 17:26 20:30 POC Glucose (mg/dL) 183 H 105 H 111 H (75-99) mg/dL 03/24/21 Range/Units 07:36 POC Glucose (mg/dL) 72 L (75-99) mg/dL Microbiology - Last 24 Hours (Table) 03/22/21 14:37 Urine Culture - Preliminary Urine,Catheterized Gram Neg Bacilli 03/22/21 12:21 Blood Culture - Preliminary Blood No Growth after 24 hours
[2021-03-24 12:04] LABS: Glucose,Whole Blood 108 mg/dL (75-99)
[2021-03-24 17:21] LABS: Glucose,Whole Blood 171 mg/dL (75-99)
[2021-03-24 20:59] LABS: Glucose,Whole Blood 206 mg/dL (75-99)
[2021-03-24] MEDS: MONTELUKAST 10 MG TAB PO SCH (21:00)
[2021-03-24] MEDS: ATORVASTATIN 10 MG TAB PO SCH (21:00)
[2021-03-24] MEDS: HYDROcodone/APAP 5-325MG 1 EACH TAB PO PRN (21:00)
--- NOTE | 2021-03-25 00:25 | PN ---
PROGRESS NOTE DATE OF SERVICE: 03/24/2021 REASON FOR FOLLOWUP: E coli urinary tract infection. INTERVAL HISTORY: The patient is afebrile. The patient is breathing comfortably. Denies having any chest pain. No shortness of breath or cough. No nausea, vomiting, abdominal pain or diarrhea. PHYSICAL EXAMINATION: Her blood pressure is 115/71 with a pulse of 73, temperature 97.8. She is 97% on room air. General description is an elderly female lying in bed in no distress. Respiratory system: Unlabored breathing, clear to auscultation anteriorly. Heart S1, S2. Regular rate and rhythm. Abdomen soft, no tenderness. LABS: Urine has been finalized with an E coli that is a sensitive pathogen. DIAGNOSTIC IMPRESSION AND PLAN: Patient with an E coli urinary tract infection. Overall improvement on Rocephin. Patient to finish therapy with short course of oral Ceftin and close outpatient followup. MMODL / IJN: [id number] /
[2021-03-25 07:37] LABS: Glucose,Whole Blood 65 mg/dL (75-99)
[2021-03-25] MEDS: LORATADINE 10 MG TAB PO SCH (07:47)
[2021-03-25] MEDS: LINAGLIPTIN 5 MG TABLET PO SCH (07:47)
[2021-03-25] MEDS: ESCITALOPRAM 10 MG TAB PO SCH (07:47)
[2021-03-25] MEDS: amLODIPine 5 MG TAB PO SCH (07:47)
[2021-03-25] MEDS: ISOSORBIDE MONONITRATE ER 60 MG TAB.ER.24H PO SCH (07:47)
[2021-03-25] MEDS: REPAGLINIDE 1 MG TAB PO SCH (07:48)
[2021-03-25] MEDS: PANTOPRAZOLE 40 MG TABLET PO SCH (07:49)
[2021-03-25] MEDS: POTASSIUM CHLORIDE ER 10 MEQ TAB.ER.PRT PO SCH (07:49)
[2021-03-25] MEDS: ASPIRIN 81 MG PO SCH (07:49)
[2021-03-25] MEDS: carvediloL 6.25 MG TAB PO SCH ×2 (07:49→17:56)
[2021-03-25] MEDS: CARBIDOPA-LEVODOPA 25-100 MG 1 EACH TAB PO SCH ×4 (07:49→21:05)
[2021-03-25] MEDS: PREGABALIN 75 MG CAP PO SCH ×2 (07:49→21:05)
[2021-03-25] MEDS: APIXABAN 2.5 MG TABLET PO SCH ×2 (07:50→21:08)
[2021-03-25 07:51] LABS: Glucose,Whole Blood 67 mg/dL (75-99)
[2021-03-25] MEDS: polyethylene glycoL 3350 17 GM POWD.PACK PO SCH (07:51)
--- NOTE | 2021-03-25 07:57 | P.DS ---
Providers Date of admission: 03/22/21 12:13 Expected date of discharge: 03/26/21 Attending physician: Pritesh Marrero MD Consults: 03/22/21 11:58 Consult Physician Routine Consulting Provider: Janeen Pa Consult Reason/Comments: frequent UTIs Do you want consulting provider notified?: Yes Primary care physician: Jakob Elpidio [facility] Course: HISTORY OF PRESENT ILLNESS This is an 80-year-old female patient of Dr. Magallanes with past medical history of active disease, heart failure, Covid 19 diagnosed in September 2020 treated in the hospital and discharged with family, hypertension, hyperlipidemia, severe persistent asthma, recurrent depression and generalized anxiety disorder, recurrent UTIs, intracranial hemorrhage status post evacuation in September 2020 with residual right facial droop and right leg weakness. Patient had onset of weakness on Thursday and continued to progress to the point she was unable to get up to the bathroom. She ended up urinating on herself at home. She tried to get up but had to slide to the floor and landed on her bottom without injury. No head injury or loss of consciousness. No fever or chills. She denies h aving any lightheadedness or dizziness. She states she does have increased urinary frequency. No diarrhea. No shortness of breath. No abdominal pain. Patient's grandson was able to help her up and EMS was contacted. Patient has frequent admissions to [facility] with most recent hospitalization March 03 through March 06 for COPD exacerbation and patient was discharged to [facility]. Patient presented to [facility] emergency center. WBC was 8.3, hemoglobin 13.4, platelet count 143. INR 1.0. Sodium 134, potassium 4.3, chloride 98, CO2 29, BUN 36 and creatinine 1.51. Blood sugar 127. Magnesium 2.2. Total bilirubin 2.6, AST 28, ALT 11, alkaline phosphatase 61. Troponin negative. ProBNP 1010. Urinalysis turbid, blood moderate, leukoesterase large, WBCs greater than 182, WBC clumps many. Coronavirus PCR detected. CAT scan of the brain revealed age-related changes of atrophy and probable chronic small vessel ischemia. Sinus disease. EKG is atrial fibrillation with controlled rate. 03/23: Patient is found resting comfortably in bed. Patient states that she is able to go home and take care of herself. She signed herself out of [facility] recently. Spoke in length with the patient that her home placement will need to be reevaluated. Sister is concerned that caregiver at home is not able to provide enough care to assist her. Social work PTOT for. At this time [facility] have declined admission. She remains afebrile, heart rate 85, blood pressure 112/73, respirations 16, pulse ox 94% on room air. 03/24: Patient is found resting comfortably in bed. Patient is upset that she is not able to go home and care for herself. She is upset that her family has not been an. Patient does not run to return to the extended care facility. She'll be seen by social work to assist with possible placement and/or guardianship. Patient remains afebrile, pulse rate 76, respirations 16, blood pressure 121/81, pulse ox 96% on room air. 03/25: Her culture is positive for E. coli, pansensitive. Blood cultures no growth after 48 hours. Patient has been afebrile, heart rate 74, blood pressure 106/64, pulse ox 95% on room air. Blood sugar this morning was 65 otherwise blood sugars are running between 108 and 206. Patient will be discharged to subacute rehab today in stable condition once all arrangements are completed. ASSESSMENT AND PLAN 1. Acute urinary tract infection with significant generalized weakness. 2. Acute kidney injury. 3. COVID-19 infection in September with persistent positive test. Patient is without Covid 19 symptoms. 4. Chronic atrial fibrillation. 5. Parkinson's disease. 6. Hypertension. 7. Chronic diastolic heart failure without exacerbation. 8. Severe persistent asthma and COPD without exacerbation. 9. Chronic kidney disease stage III. 10. Diabetes mellitus type 2. 11. Diabetic neuropathy. 12. Hyperlipidemia. 13. Generalized anxiety disorder and recurrent depression. 14. Recurrent urinary tract infections. 15. Intracranial hemorrhage status post evacuation in September 2020 with residual right facial droop and right leg weakness. 16. Gastroesophageal reflux disease DISCHARGE PLAN [facility] for acute rehab. Impression and plan of care have been directed as dictated by the signing physician. Kerline Wright nurse practitioner acting as scribe for signing physician. Patient Condition at Discharge: Stable Plan - Discharge Summary Discharge Rx Participant: Yes New Discharge Prescriptions: New Cefuroxime Axetil [Ceftin] 500 mg PO BID 7 Days #14 tab Continue Levalbuterol Hfa Inhaler [Xopenex Hfa Inhaler] 1 - 2 puff INHALATION RT-BID PRN PRN Reason: Shortness Of Breath Atorvastatin Calcium [Lipitor] 10 mg PO HS Isosorbide Mononitrate ER [Imdur] 60 mg PO DAILY Aspirin EC [Ecotrin Low Dose] 81 mg PO DAILY Polyethylene Glycol 3350 [Clearlax] 17 gm PO DAILY Naloxegol Oxalate [Movantik] 25 mg PO DAILY sitaGLIPtin [Januvia] 50 mg PO DAILY Pantoprazole Sodium [Protonix] 40 mg PO DAILY Montelukast [Singulair] 10 mg PO HS Carbidopa-Levodopa 25-100 mg [Sinemet 25-100 mg] 1 tab PO QID Apixaban [Eliquis] 2.5 mg PO BID ALPRAZolam [Xanax] 0.25 mg PO Q12H PRN #6 tab PRN Reason: Anxiety Nitroglycerin Sl Tabs [Nitrostat] 0.4 mg SL Q5M PRN PRN Reason: Chest Pain Escitalopram [Lexapro] 10 mg PO DAILY carvediloL [Coreg] 6.25 mg PO BID amLODIPine [Norvasc] 5 mg PO DAILY Albuterol Sulfate [Ventolin HFA] 2 puff INHALATION RT-Q6H PRN PRN Reason: Wheezing Potassium Chloride ER [K-Dur 10] 10 meq PO DAILY Cetirizine HCl [Zyrtec] 10 mg PO DAILY Pregabalin [Lyrica] 150 mg PO BID #6 cap HYDROcodone/APAP 5-325MG [[place] 5-325] 1 tab PO Q6H PRN #12 tab PRN Reason: Pain Changed Furosemide [Lasix] 20 mg PO DAILY #0 Spironolactone 12.5 mg PO DAILY #0 Discontinued Repaglinide [Prandin] 0.5 mg PO AC-TID Discharge Medication List Levalbuterol Hfa Inhaler [Xopenex Hfa Inhaler] 1 - 2 puff INHALATION RT-BID PRN 01/30/14 [History] Atorvastatin Calcium [Lipitor] 10 mg PO HS 12/29/17 [History] Aspirin EC [Ecotrin Low Dose] 81 mg PO DAILY 11/18/18 [History] Isosorbide Mononitrate ER [Imdur] 60 mg PO DAILY 11/18/18 [History] Naloxegol Oxalate [Movantik] 25 mg PO DAILY 11/18/18 [History] Polyethylene Glycol 3350 [Clearlax] 17 gm PO DAILY 11/18/18 [History] Albuterol Sulfate [Ventolin HFA] 2 puff INHALATION RT-Q6H PRN 03/21/21 [History] Apixaban [Eliquis] 2.5 mg PO BID 03/21/21 [History] Carbidopa-Levodopa 25-100 mg [Sinemet 25-100 mg] 1 tab PO QID 03/21/21 [History] Cetirizine HCl [Zyrtec] 10 mg PO DAILY 03/21/21 [History] Escitalopram [Lexapro] 10 mg PO DAILY 03/21/21 [History] Montelukast [Singulair] 10 mg PO HS 03/21/21 [History] Nitroglycerin Sl Tabs [Nitrostat] 0.4 mg SL Q5M PRN 03/21/21 [History] Pantoprazole Sodium [Protonix] 40 mg PO DAILY 03/21/21 [History] Potassium Chloride ER [K-Dur 10] 10 meq PO DAILY 03/21/21 [History] amLODIPine [Norvasc] 5 mg PO DAILY 03/21/21 [History] carvediloL [Coreg] 6.25 mg PO BID 03/21/21 [History] sitaGLIPtin [Januvia] 50 mg PO DAILY 03/21/21 [History] ALPRAZolam [Xanax] 0.25 mg PO Q12H PRN #6 tab 03/25/21 [Rx] Cefuroxime Axetil [Ceftin] 500 mg PO BID 7 Days #14 tab 03/25/21 [Rx] Furosemide [Lasix] 20 mg PO DAILY #0 03/25/21 [Rx] HYDROcodone/APAP 5-325MG [[place] 5-325] 1 tab PO Q6H PRN #12 tab 03/25/21 [Rx] Pregabalin [Lyrica] 150 mg PO BID #6 cap 03/25/21 [Rx] Spironolactone 12.5 mg PO DAILY #0 03/25/21 [Rx] Follow up Appointment(s)/Referral(s): Jakob Magallanes MD [Primary Care Provider] - 1 Week (after discharge from ECF) Discharge Disposition: TRANSFER TO SNF/ECF
[2021-03-25 08:08] LABS: Glucose,Whole Blood 98 mg/dL (75-99)
[2021-03-25 08:43] LABS: HCT 34.1 % (37.2-46.3); HGB 10.5 g/dL (12.0-15.0); MCH 26.3 pg (27.0-32.0); MCV 85.3 fL (80.0-97.0)
[2021-03-25 08:44] LABS: Basophils # (A) 0.02 X 10*3/uL (0.00-0.10); Basophils % (A) 0.4 %; Eosinophils # (A) 0.37 X 10*3/uL (0.04-0.35); Eosinophils % (A) 6.7 %; Lymphocytes # (A) 1.02 X 10*3/uL (0.90-5.00); Lymphocytes % (A) 18.5 %; MCHC 30.8 g/dL (32.0-37.0); Mean Platelet Volume 10.9 fL (9.5-12.2); Monocytes % (A) 14.5 %; Neutrophils # (A) 3.26 X 10*3/uL (1.80-7.70); Neutrophils % (A) 59.4 %; Platelet Count 130 X 10*3/uL (140-440); RDW 20.5 % (11.5-14.5)
[2021-03-25] MEDS: INSULIN ASPART (NovoLOG) 100 UNIT/ML VIAL SQ SCH ×4 (09:27→22:13)
[2021-03-25] MEDS: NON FORMULARY DRUG (Naloxegol Oxalate [Movantik] 25 MG Tablet) PO SCH (09:28)
[2021-03-25 09:35] LABS: ALT <8 U/L (8-44); AST 14 U/L (13-35); African American GFR (CKD) 54.1 (60.0-200.0); Albumin/Globulin Ratio 1.65 (1.60-3.17); Alkaline Phosphatase 42 U/L (41-126); BUN/Creat Ratio 23.64 Ratio (12.00-20.00); Calcium 7.9 mg/dL (8.7-10.3); Carbon Dioxide 25.2 mmol/L (21.6-31.8); Chloride 108 mmol/L (96-109); Globulin 1.7 g/dL (1.6-3.3); Glucose 63 mg/dL (70-110); Non-African American GFR(CKD) 46.7 (60.0-200.0); Potassium 4.4 mmol/L (3.5-5.5); Sodium 138 mmol/L (135-145); Total Bilirubin 0.6 mg/dL (0.3-1.2); Total Protein 4.5 g/dL (6.2-8.2)
[2021-03-25] MEDS: ALBUTEROL HFA INHALER INHALATION PRN (11:26)
[2021-03-25 11:33] LABS: Glucose,Whole Blood 143 mg/dL (75-99)
[2021-03-25 16:38] LABS: Glucose,Whole Blood 139 mg/dL (75-99)
--- NOTE | 2021-03-25 17:57 | PN ---
PROGRESS NOTE DATE OF SERVICE: 03/25/2021 REASON FOR FOLLOWUP: E coli urinary tract infection infection. INTERVAL HISTORY: The patient is afebrile. The patient is breathing comfortably. Denies any chest pain, shortness of breath or cough. No abdominal pain. No diarrhea. PHYSICAL EXAMINATION: Blood pressure 142/80 with a pulse of 79, temperature 98.8. She is 98% on room air. General description is an elderly female lying in bed in no distress. Respiratory system: Unlabored breathing, clear to auscultation anteriorly. Heart S1, S2. Regular rate and rhythm. Abdomen soft, no tenderness. LABS: No new labs have been obtained today. DIAGNOSTIC IMPRESSION/PLAN: Patient with E coli urinary tract infection . The patient overall improvement on Rocephin. She will finish therapy with oral Ceftin and close outpatient followup. MMODL / IJN: [id number] /
[2021-03-25 20:18] LABS: Glucose,Whole Blood 171 mg/dL (75-99)
[2021-03-25] MEDS: ATORVASTATIN 10 MG TAB PO SCH (21:05)
[2021-03-25] MEDS: MONTELUKAST 10 MG TAB PO SCH (21:05)
[2021-03-26] MEDS: HYDROcodone/APAP 5-325MG 1 EACH TAB PO PRN (04:36)
[2021-03-26 07:25] LABS: Glucose,Whole Blood 98 mg/dL (75-99)
[2021-03-26] MEDS: amLODIPine 5 MG TAB PO SCH (07:47)
[2021-03-26] MEDS: polyethylene glycoL 3350 17 GM POWD.PACK PO SCH (08:02)
[2021-03-26] MEDS: CARBIDOPA-LEVODOPA 25-100 MG 1 EACH TAB PO SCH ×2 (08:02→13:23)
[2021-03-26] MEDS: LORATADINE 10 MG TAB PO SCH (08:03)
[2021-03-26] MEDS: ASPIRIN 81 MG PO SCH (08:03)
[2021-03-26] MEDS: APIXABAN 2.5 MG TABLET PO SCH (08:03)
[2021-03-26] MEDS: carvediloL 6.25 MG TAB PO SCH (08:03)
[2021-03-26] MEDS: PANTOPRAZOLE 40 MG TABLET PO SCH (08:03)
[2021-03-26] MEDS: PREGABALIN 75 MG CAP PO SCH (08:04)
[2021-03-26] MEDS: ISOSORBIDE MONONITRATE ER 60 MG TAB.ER.24H PO SCH (08:04)
[2021-03-26] MEDS: ESCITALOPRAM 10 MG TAB PO SCH (08:04)
[2021-03-26] MEDS: POTASSIUM CHLORIDE ER 10 MEQ TAB.ER.PRT PO SCH (08:04)
[2021-03-26] MEDS: LINAGLIPTIN 5 MG TABLET PO SCH (08:05)
[2021-03-26] MEDS: ALBUTEROL HFA INHALER INHALATION PRN ×2 (08:30→13:29)
[2021-03-26] MEDS ORDERED: FUROSEMIDE 20 MG TAB PO SCH (09:00)
[2021-03-26] MEDS ORDERED: SPIRONOLACTONE 25 MG TAB PO SCH (09:00)
[2021-03-26] MEDS: INSULIN ASPART (NovoLOG) 100 UNIT/ML VIAL SQ SCH ×2 (09:13→13:23)
[2021-03-26] MEDS: NON FORMULARY DRUG (Naloxegol Oxalate [Movantik] 25 MG Tablet) PO SCH (09:14)
--- NOTE | 2021-03-26 09:22 | P.PN ---
Subjective Progress Note Date: 03/25/21 HISTORY OF PRESENT ILLNESS This is an 80-year-old female patient of Dr. Magallanes with past medical history of active disease, heart failure, Covid 19 diagnosed in September 2020 treated in the hospital and discharged with family, hypertension, hyperlipidemia, severe persistent asthma, recurrent depression and generalized anxiety disorder, recurrent UTIs, intracranial hemorrhage status post evacuation in September 2020 with residual right facial droop and right leg weakness. Patient had onset of weakness on Thursday and continued to progress to the point she was unable to get up to the bathroom. She ended up urinating on herself at home. She tried to get up but had to slide to the floor and landed on her bottom without injury. No head injury or loss of consciousness. No fever or chills. She denies having any lightheadedness or dizziness. She states she does have increased urinary frequency. No diarrhea. No shortness of breath. No abdominal pain. Patient's grandson was able to help her up and EMS was contacted. Patient has frequent admissions to [facility] with most recent hospitalization March 03 through March 06 for COPD exacerbation and patient was discharged to [facility]. Patient presented to [facility] emergency center. WBC was 8.3, hemoglobin 13.4, platelet count 143. INR 1.0. Sodium 134, potassium 4.3, chloride 98, CO2 29, BUN 36 and creatinine 1.51. Blood sugar 127. Magnesium 2.2. Total bilirubin 2.6, AST 28, ALT 11, alkaline phosphatase 61. Troponin negative. ProBNP 1010. Urinalysis turbid, blood moderate, leukoesterase large, WBCs greater than 182, WBC clumps many. Coronavirus PCR detected. CAT scan of the brain revealed age-related changes of atrophy and probable chronic small vessel ischemia. Sinus disease. EKG is atrial fibrillation with controlled rate. 03/23: Patient is found resting comfortably in bed. Patient states that she is able to go home and take care of herself. She signed herself out of [facility] recently. Spoke in length with the patient that her home placement will need to be reevaluated. Sister is concerned that caregiver at home is not able to provide enough care to assist her. Social work PTOT for. At this time [facility] and [facility] have declined admission. She remains afebrile, heart rate 85, blood pressure 112/73, respirations 16, pulse ox 94% on room air. 03/24: Patient is found resting comfortably in bed. Patient is upset that she is not able to go home and care for herself. She is upset that her family has not been an. Patient does not run to return to the extended care facility. She'll be seen by social work to assist with possible placement and/or guardianship. Patient remains afebrile, pulse rate 76, respirations 16, blood pressure 121/81, pulse ox 96% on room air. 03/25: Her culture is positive for E. coli, pansensitive. Blood cultures no growth after 48 hours. Patient has been afebrile, heart rate 74, blood pressure 106/64, pulse ox 95% on room air. Blood sugar this morning was 65 otherwise blood sugars are running between 108 and 206. Patient will be discharged to subacute rehab today in stable condition once all arrangements are completed. REVIEW OF SYSTEMS Constitutional: No fever, no chills, no night sweats. No weight change. Reports weakness, Reports fatigue no lethargy. No daytime sleepiness. EENT: No headache. No blurred vision or double vision, no loss of vision. No loss of Hearing. No nasal drainage or congestion. No epistaxis. No sore throat. Lungs: No shortness of breath, cough, no sputum production. No wheezing. Cardiovascular: No chest pain, no lower extremity edema. No palpitations. No paroxysmal nocturnal dyspnea. No orthopnea. No lightheadedness or dizziness. No syncopal episodes. Abdominal: No abdominal pain. No nausea, vomiting. No diarrhea. No constipati on. No bloody or tarry stools.. No loss of appetite. Genitourinary: No dysuria, increased frequency, urgency. No urinary retention. Musculoskeletal: No myalgias. Reports muscle weakness, no gait dysfunction, no frequent falls. No back pain. No neck pain. Integumentary: No wounds, no lesions. No rash or pruritus. No unusual bruising. No change in hair or nails. Neurologic: No aphasia. No facial droop. No change in mentation. No head injury. No headache. No paralysis. No paresthesia. Psychiatric: No depression. No anxiety. No mood swings. Endocrine: No abnormal blood sugars. No weight change. No excessive sweating or thirst. No cold intolerance. ASSESSMENT AND PLAN 1. Acute urinary tract infection with significant generalized weakness. Patient started on ceftriaxone 1 g daily, urine culture and blood culture to be obtained, infectious disease consult appreciated 2. Acute kidney injury. IV fluids discontinued. 3. COVID-19 infection in September with persistent positive test. Patient is without Covid 19 symptoms. 4. Chronic atrial fibrillation. Continue eliquis 2.5 mg twice daily and Coreg 6.25 mg twice daily, 5. Parkinson's disease. Continue Sinemet 25/100 one tablet 4 times daily. 6. Hypertension. Continue Norvasc 5 mg daily, Coreg 6.25 mg twice daily. 7. Chronic diastolic heart failure without exacerbation. Lasix and Aldactone on hold for now will resume. 8. Severe persistent asthma and COPD without exacerbation. Continue albuterol every 6 hours as needed, Singulair 10 mg at bedtime. 9. Chronic kidney disease stage III. 10. Diabetes mellitus type 2. Continue Tradjenta 5 mg daily, Prandin 0.5 mg 3 times daily, NovoLog scale. 11. Diabetic neuropathy. Continue Lyrica 150 mg twice daily. 12. Hyperlipidemia. Continue Lipitor 10 mg at bedtime. 13. Generalized anxiety disorder and recurrent depression. Continue Xanax or 0.25 mg every 12 hours as needed, Lexapro 10 mg daily. 14. Recurrent urinary tract infections. 15. Intracranial hemorrhage status post evacuation in September 2020 with residua l right facial droop and right leg weakness. 16. Gastroesophageal reflux disease and GI prophylaxis. Continue Protonix 40 mg daily. 17. DVT prophylaxis. Eliquis. Discharge plan: ECF Impression and plan of care have been directed as dictated by the signing physician. Kerline Wright nurse practitioner acting as scribe for signing physician. Objective - Vital Signs Vital signs: Vital Signs Temp 97.3 F L 03/26/21 08:00 Pulse 73 03/26/21 08:00 Resp 14 03/26/21 08:00 BP 120/82 03/26/21 08:00 Pulse Ox 94 L 03/26/21 08:00 Intake & Output 03/25/21 03/26/21 03/26/21 18:59 06:59 18:59 Output Total 1800 Balance -1800 Output: Urine 1800 Straight 1200 Other: Voiding Method Indwelling Catheter # Voids 3 # Bowel Movements 0 - Labs CBC & Chem 7: 03/25/21 06:11 03/25/21 06:11 Labs: Abnormal Lab Results - Last 24 Hours (Table) 03/25/21 03/25/21 03/25/21 Range/Units 06:11 11:30 16:37 Est GFR (CKD-EPI)AfAm 54.1 L (60.0-200.0) Est GFR (CKD-EPI)NonAf 46.7 L (60.0-200.0) BUN/Creatinine Ratio 23.64 H (12.00-20.00) Ratio Glucose 63 L (70-110) mg/dL POC Glucose (mg/dL) 143 H 139 H (75-99) mg/dL Calcium 7.9 L (8.7-10.3) mg/dL ALT <8 L (8-44) U/L Total Protein 4.5 L (6.2-8.2) g/dL Albumin 2.80 L (3.80-4.90) g/dL 03/25/21 Range/Units 20:16 Est GFR (CKD-EPI)AfAm (60.0-200.0) Est GFR (CKD-EPI)NonAf (60.0-200.0) BUN/Creatinine Ratio (12.00-20.00) Ratio Glucose (70-110) mg/dL POC Glucose (mg/dL) 171 H (75-99) mg/dL Calcium (8.7-10.3) mg/dL ALT (8-44) U/L Total Protein (6.2-8.2) g/dL Albumin (3.80-4.90) g/dL Microbiology - Last 24 Hours (Table) 03/22/21 12:21 Blood Culture - Preliminary Blood No Growth after 72 hours
[2021-03-26 11:54] LABS: Glucose,Whole Blood 156 mg/dL (75-99)
[2021-03-26 14:03] VITALS: BP 119/80; PULSE 84; RESP 16; TEMP 97.6
[2021-03-26 17:00] LABS: Glucose,Whole Blood 146 mg/dL (75-99)
--- NOTE | 2021-03-26 17:02 | PN ---
PROGRESS NOTE DATE OF SERVICE: 03/26/2021 REASON FOR FOLLOWUP VISIT: E. coli urinary tract infection. INTERVAL HISTORY: The patient is afebrile. The patient is breathing comfortably. Denies any chest pain, shortness of breath, cough, no abdominal pain. No diarrhea. PHYSICAL EXAMINATION: Blood pressure 119/80 with a pulse of 84, temperature 97.6. She is 95% on room air. General description is an elderly female lying in bed in no distress. Respiratory system: Unlabored breathing, clear to auscultation anteriorly. Heart S1, S2. Regular rate and rhythm. Abdomen soft, no tenderness. LABS: No new labs have been obtained today. DIAGNOSTIC IMPRESSION AND PLAN: Patient with an E coli urinary tract infection in this patient who did have history of recurrent urinary tract infections. Patient overall improvement on Rocephin. Finish therapy with oral Ceftin and close outpatient followup. MMODL / IJN: [id number] /
== END 2021-03-26 18:04 | DRG 689 ==
LOC: EC 13:52 → 5NMEDONC 18:41 → 6NMEDSUR 21:49 → OBSVTOIN 03-22 12:13
PROVIDERS: ADMIT Internal Medicine; ATTEND Internal Medicine
DX: N39.0 Urinary tract infection, site not specified (principal); U07.1 COVID-19; N17.9 Acute kidney failure, unspecified; I13.0 Hypertensive heart and chronic kidney disease with heart failure and stage 1 through stage 4 chronic kidney disease, or unspecified chronic kidney disease; F33.9 Major depressive disorder, recurrent, unspecified; I48.20 Chronic atrial fibrillation, unspecified; I50.32 Chronic diastolic (congestive) heart failure; E78.5 Hyperlipidemia, unspecified; E11.22 Type 2 diabetes mellitus with diabetic chronic kidney disease; E11.40 Type 2 diabetes mellitus with diabetic neuropathy, unspecified; R29.810 Facial weakness; F41.1 Generalized anxiety disorder; N18.30 Chronic kidney disease, stage 3 unspecified; K21.9 Gastro-esophageal reflux disease without esophagitis; G20 Parkinson's disease; J44.9 Chronic obstructive pulmonary disease, unspecified; I83.90 Asymptomatic varicose veins of unspecified lower extremity; G89.29 Other chronic pain; G43.909 Migraine, unspecified, not intractable, without status migrainosus; M25.561 Pain in right knee; B96.20 Unspecified Escherichia coli [E. coli] as the cause of diseases classified elsewhere; E86.0 Dehydration; J45.50 Severe persistent asthma, uncomplicated; I69.292 Facial weakness following other nontraumatic intracranial hemorrhage; Z87.440 Personal history of urinary (tract) infections; Z88.1 Allergy status to other antibiotic agents; Z96.653 Presence of artificial knee joint, bilateral; Z83.3 Family history of diabetes mellitus; Z82.49 Family history of ischemic heart disease and other diseases of the circulatory system; Z79.899 Other long term (current) drug therapy; Z79.84 Long term (current) use of oral hypoglycemic drugs; Z79.82 Long term (current) use of aspirin; Z79.01 Long term (current) use of anticoagulants; Z78.0 Asymptomatic menopausal state; I69.24 Monoplegia of lower limb following other nontraumatic intracranial hemorrhage
CPT/HCPCS: 36415; 70450; 71045; 80053; 81001; 83735; 83880; 84484; 85025; 85610; 85730; 87040; 87077; 87086; 87186; 87635; 93005; 94640; 96360; 99285

== ENCOUNTER 2021-09-13 10:26 | Emergency (ER) | payer MEDICARE, OTHER ==
[2021-09-13 10:49] VITALS: BP 99/71; PULSE 74; RESP 16; TEMP 98.4
[2021-09-13] MEDS ORDERED: HYDROcodone/APAP 10-325MG 1 EACH TAB PO ONE (11:28)
--- NOTE | 2021-09-13 11:33 | CT ---
EXAMINATION TYPE: CT brain cspine wo con DATE OF EXAM: 09/13/2021 COMPARISON: CT brain March 21, 2021. CT cervical spine 2011 HISTORY: Head Injury, pain CT DLP: 1948.8 mGycm. Automated Exposure Control for Dose Reduction was Utilized. TECHNIQUE: CT scan of the head and cervical spine are performed without contrast. FINDINGS: There is no acute intracranial hemorrhage or midline shift identified. Moderate to severe sulcal prominence greatest over the bilateral frontal lobes and to a slightly lesser degree over skip ateral temporal lobes redemonstrated. Ventricular size stable. Some low-attenuation right frontal per iventricular white matter redemonstrated. New Large acute left frontal scalp hematoma but adjacent calvarium is intact. Completely opacified right posterior ethmoid sinus on current study. Interval pr ogression from prior. Globes are intact. Benign osteoma left occipital region axial image 31 redemons trated. Osseous structures are demineralized. Cervical spine is visualized in its entirety from C1 through up per thoracic levels and demonstrates levoconvex scoliotic curvature centered upper thoracic spine ali gnment without evidence of acute fracture or dislocation. Prevertebral soft tissue appears within no rmal limits. The C1-C2 articulation is within normal limits on the coronal images. Vertebral body he ights are maintained. Slight grade 1 retrolisthesis C5 on C6 redemonstrated. Moderate spurring and di sc space narrowing C5-C6 and C6-C7 levels more prominent from 2012 study. Posterior spur disc complex es efface the anterior thecal sac at these levels. Axial images show multilevel uncovertebral and fac et degenerative changes greatest on the left in the upper cervical spine and greatest on the right in the mid to lower cervical spine. No pneumothorax is evident in the lung apices. Heterogeneous normal -sized thyroid redemonstrated. IMPRESSION: 1. There is no acute fracture or dislocation evident in the cervical spine. 2. No acute intracranial hemorrhage or midline shift is seen. New Large acute left frontal scalp hem atoma.
--- NOTE | 2021-09-13 13:17 | ED ---
Fall HPI - General Chief Complaint: Fall Stated Complaint: Rolled out of bed Time Seen by Provider: 09/13/21 10:28 Source: patient, RN notes reviewed Mode of arrival: EMS Limitations: physical limitation - History of Present Illness Initial Comments: This an 80-year-old female presents emergency department from intermediate with chief complaint of head injury. She reports her change in her wrist and rolled onto her side left she states that she tried to catch herself with fell striking her head. Patient noted to have abrasion, large area swelling and discomfort. Patient no other injuries. Patient up-to-date on her tetanus. Patient does not report any blood thinners. - Related Data Home Medications Medication Instructions Recorded Confirmed Atorvastatin Calcium [Lipitor] 10 mg PO HS 12/29/17 09/13/21 Aspirin EC [Ecotrin Low Dose] 81 mg PO DAILY 11/18/18 09/13/21 Isosorbide Mononitrate ER [Imdur] 60 mg PO DAILY 11/18/18 09/13/21 Polyethylene Glycol 3350 [Clearlax] 17 gm PO DAILY 11/18/18 09/13/21 Albuterol Sulfate [Ventolin HFA] 2 puff INHALATION RT-BID@08,199903/21/21 09/13/21 PRN Apixaban [Eliquis] 2.5 mg PO BID 03/21/21 09/13/21 Cetirizine HCl [Zyrtec] 5 mg PO DAILY PRN 03/21/21 09/13/21 Escitalopram [Lexapro] 10 mg PO DAILY 03/21/21 09/13/21 Montelukast [Singulair] 10 mg PO HS 03/21/21 09/13/21 Nitroglycerin Sl Tabs [Nitrostat] 0.4 mg SL Q5M PRN 03/21/21 09/13/21 Potassium Chloride ER [K-Dur 10] 10 meq PO DAILY 03/21/21 09/13/21 carvediloL [Coreg] 3.125 mg PO BID@0800,199903/21/21 09/13/21 sitaGLIPtin [Januvia] 50 mg PO DAILY@0800 03/21/21 09/13/21 Carbidopa/Levodopa [Carbidopa-Levo 1 tab PO QID@08,12,16,20 09/13/21 09/13/21 ER 25-100 Tab] Ferrous Sulfate [Feosol] 325 mg PO HS 09/13/21 09/13/21 Furosemide [Lasix] 40 mg PO DAILY@0800 09/13/21 09/13/21 HYDROcodone/APAP 10-325MG [Sterling 1 tab PO Q6H PRN 09/13/21 09/13/21 10-325] Methenamine Hippurate [Hiprex] 1 gm PO BID 09/13/21 09/13/21 Multivitamins, Thera [Multivitamin 1 tab PO DAILY 09/13/21 09/13/21 (formulary)] Omeprazole 20 mg PO DAILY 09/13/21 09/13/21 Tamsulosin HCl [Flomax] 0.4 mg PO HS@2000 09/13/21 09/13/21 amLODIPine [Norvasc] 10 mg PO DAILY 09/13/21 09/13/21 Previous Rx's Medication Instructions Recorded Pregabalin [Lyrica] 150 mg PO BID #6 cap 03/25/21 Spironolactone 12.5 mg PO DAILY #0 03/25/21 Allergies Allergy/AdvReac Type Severity Reaction Status Date / Time albuterol Allergy Rash/Hives Verified 09/13/21 11:07 carbamazepine [From Tegretol] Allergy Rash/Hives Verified 09/13/21 11:07 carisoprodol [From Soma] Allergy Rash/Hives Verified 09/13/21 11:07 ciprofloxacin [From Cipro] Allergy Rash/Hives Verified 09/13/21 11:07 ciprofloxacin HCl Allergy Rash/Hives Verified 09/13/21 11:07 [From Cipro] rice Allergy Unknown Verified 09/13/21 11:07 Sulfa (Sulfonamide Allergy Rash/Hives Verified 09/13/21 11:07 Antibiotics) sulfamethoxazole Allergy Unknown Verified 09/13/21 11:07 [From Bactrim] trimethoprim [From Bactrim] Allergy Unknown Verified 09/13/21 11:07 doxycycline AdvReac Nausea & Verified 09/13/21 11:07 Vomiting egg AdvReac Nausea & Verified 09/13/21 11:07 Vomiting & Diarrhea artificial sweetner in pop Allergy Rash/Hives Uncoded 03/21/21 17:25 Review of Systems ROS Statement: Those systems with pertinent positive or pertinent negative responses have been documented in the HPI. ROS Other: All systems not noted in ROS Statement are negative. Past Medical History Past Medical History: Asthma, Chest Pain / Angina, Diabetes Mellitus, Hyperlipidemia, Hypertension, Respiratory Disorder Additional Past Medical History / Comment(s): Migraine, Varicose Veins, Bronchitis/Pneumonia/Sinus Problems, January 17 had complete right shoulder surgery - problem with blood clots after surgery History of Any Multi-Drug Resistant Organisms: VRE Date of last positivie culture/infection: 04/27/21 MDRO Source:: VRE URINE Past Surgical History: Cholecystectomy, Heart Catheterization, Joint Replacement, Tonsillectomy Additional Past Surgical History / Comment(s): Bilateral Knee Replacement, Bilateral Rotator Cuff RepairComplete right shoulder surgery - January 17, 2015. Cardiac Catheterization - 2015 Past Anesthesia/Blood Transfusion Reactions: No Reported Reaction Past Psychological History: Anxiety, Depression Smoking Status: Never smoker Past Alcohol Use History: None Reported Past Drug Use History: None Reported - Past Family History Son(s) Family Medical History: Myocardial Infarction (ND) Additional Family Medical History / Comment(s): son was adopted Sister(s) Additional Family Medical History / Comment(s): heart ablation Mother Family Medical History: Myocardial Infarction (ND) Father Family Medical History: Myocardial Infarction (ND) General Exam Limitations: no limitations General appearance: alert, in no apparent distress Head exam: Present: atraumatic, normocephalic. Absent: normal inspection (Large hematoma left frontal with abrasion noted) Eye exam: Present: normal appearance, PERRL, EOMI, periorbital swelling. Absent: periorbital tenderness ENT exam: Present: normal exam, mucous membranes moist, other Neck exam: Present: normal inspection, full ROM. Absent: tenderness, lymphadenopathy, thyromegaly Respiratory exam: Present: normal lung sounds bilaterally. Absent: respiratory distress, wheezes, rales, rhonchi, stridor Cardiovascular Exam: Present: regular rate, normal rhythm, normal heart sounds. Absent: systolic murmur, diastolic murmur, rubs, gallop, clicks Extremities exam: Present: normal inspection, full ROM, normal capillary refill. Absent: tenderness, pedal edema, joint swelling, calf tenderness Back exam: Present: full ROM. Absent: tenderness Neurological exam: Present: alert, oriented X3, CN II-XII intact Course Vital Signs 09/13/21 10:33 Temperature 98.4 F Pulse Rate 74 Respiratory 16 Rate Blood Pressure 99/71 O2 Sat by Pulse 98 Oximetry Medical Decision Making - Medical Decision Making Patient is a very large hematoma in the left frontal region. She was observed for a couple hours with no acute changes. Patient will be discharged with strict return parameters. Patient will be observed by nursing staff. Disposition Clinical Impression: Fall, Hematoma of frontal scalp Disposition: HOME SELF-CARE Condition: Stable Instructions (If sedation given, give patient instructions): Head Injury (ED) Additional Instructions: Please return to the Emergency Department if symptoms worsen or any other concerns. Is patient prescribed a controlled substance at d/c from ED?: No Referrals: Alden Hess DO [Primary Care Provider] - 1-2 days Time of Disposition: 13:17
== END 2021-09-13 13:30 | disposition home or self-care (01) ==
LOC: EC 10:26 → SUPCPDRO 10:26 → EC 13:30
DX: S00.03XA Contusion of scalp, initial encounter (principal); J45.909 Unspecified asthma, uncomplicated; E11.9 Type 2 diabetes mellitus without complications; E78.5 Hyperlipidemia, unspecified; I10 Essential (primary) hypertension; F41.9 Anxiety disorder, unspecified; F32.A Depression, unspecified; Z79.82 Long term (current) use of aspirin; Z79.01 Long term (current) use of anticoagulants; Z88.1 Allergy status to other antibiotic agents; Z88.2 Allergy status to sulfonamides; Z90.49 Acquired absence of other specified parts of digestive tract; Z96.653 Presence of artificial knee joint, bilateral; W06.XXXA Fall from bed, initial encounter
CPT/HCPCS: 70450; 72125; 99284

== ENCOUNTER 2021-12-17 12:30 | Inpatient (IN) | payer MEDICARE, OTHER ==
[2021-12-17] MEDS ORDERED: SODIUM CHLORIDE 0.9% 1,000 ML IV ONE (12:54)
[2021-12-17] MEDS ORDERED: SODIUM CHLORIDE 0.9% 500 ML 500 ML IV STA (13:00)
[2021-12-17 13:41] LABS: Glucose,Whole Blood 120 mg/dL (75-99)
[2021-12-17 13:49] LABS: Basophils # (A) 0.1 k/uL (0-0.2); Basophils % (A) 1 %; Eosinophils # (A) 0.3 k/uL (0-0.7); Eosinophils % (A) 3 %; HCT 38.8 % (34.0-46.0); Lymphocytes # (A) 1.1 k/uL (1.0-4.8); Lymphocytes % (A) 10 %; MCH 30.6 pg (25.0-35.0); MCHC 33.5 g/dL (31.0-37.0); MCV 91.3 fL (80.0-100.0); Mean Platelet Volume 8.5; Monocytes # (A) 0.8 k/uL (0-1.0); Monocytes % (A) 8 %; Neutrophils # (A) 8.2 k/uL (1.3-7.7); Neutrophils % (A) 77 %; Platelet Count 204 k/uL (150-450); RBC 4.25 m/uL (3.80-5.40); RDW 13.1 % (11.5-15.5); WBC 10.6 k/uL (3.8-10.6)
--- NOTE | 2021-12-17 14:01 | US ---
EXAMINATION TYPE: US venous doppler duplex LE RT DATE OF EXAM: 12/17/2021 1:52 PM COMPARISON: NONE CLINICAL HISTORY: swollen foot. Pt states right leg pain and swelling SIDE PERFORMED: Right TECHNIQUE: The lower extremity deep venous system is examined utilizing real time linear array sonog jeff with graded compression, doppler sonography and color-flow sonography. VESSELS IMAGED: Common Femoral Vein Deep Femoral Vein Greater Saphenous Vein * Femoral Vein Popliteal Vein Small Saphenous Vein * Proximal Calf Veins (* superficial vessels) Right Leg: Visualized portions appear negative for DVT, soft tissue edema visualized posterior calf and anterior foot IMPRESSION: 1. No diagnostic evidence of DVT as visualized. 2. Soft tissue edema.
[2021-12-17 14:05] LABS: ALT <6 U/L (4-34); African American GFR (CKD) 52 (>60 ml/min/1.73 sqM); Albumin 2.7 g/dL (3.5-5.0); Alcohol <10 mg/dL; Anion Gap 3 mmol/L; Blood Urea Nitrogen 27 mg/dL (7-17); Calcium 7.5 mg/dL (8.4-10.2); Carbon Dioxide 25 mmol/L (22-30); Chloride 106 mmol/L (98-107); Glucose 93 mg/dL (74-99); Non-African American GFR(CKD) 45 (>60 ml/min/1.73 sqM); Sodium 134 mmol/L (137-145); Total Bilirubin 2.1 mg/dL (0.2-1.3); Total Protein 5.7 g/dL (6.3-8.2)
[2021-12-17 14:07] LABS: Lactic Acid, Venous 0.9 mmol/L (0.7-2.0)
[2021-12-17 14:10] LABS: AST 30 U/L (14-36); Alkaline Phosphatase 41 U/L (38-126); Potassium 4.2 mmol/L (3.5-5.1)
--- NOTE | 2021-12-17 14:16 | CT ---
EXAMINATION TYPE: CT brain wo con DATE OF EXAM: 12/17/2021 COMPARISON: 09/13/2021 HISTORY: Altered mental status. CT DLP: 1173.4 mGycm Automated exposure control for dose reduction was used. FINDINGS: Dental artifact noted. There is a nasal septal deviation. Significant artifacts in the posterior michael a limited. Orbits are grossly symmetric. Hyperostosis of the calvarium. A large osteoma involving the posterior left parietal bone measuring a pproximately 2.7 cm. Calvarium intact. There is degenerative change of the greater frontal lobe component. Chronic subdural hematoma or hygr mary in the differential diagnosis. No acute hemorrhage or mass effect. Low attenuation in the white m atter is nonspecific but most typical remote white matter ischemia. Small hypodensity within the bila teral basal ganglia. IMPRESSION: 1. Degenerative and nonspecific white matter change most typical remote white matter ischemia. Greate r CSF prominence in the frontal lobes may relate to asymmetric atrophy. Chronic subdural hematoma or hygroma in the differential diagnosis. 2. Remote lacunar infarct bilateral basal ganglia.
--- NOTE | 2021-12-17 14:23 | XR ---
EXAMINATION TYPE: XR chest 2V DATE OF EXAM: 12/17/2021 COMPARISON: Chest x-ray March 21, 2021 HISTORY: Altered mental status and weakness. TECHNIQUE: Frontal and lateral views of the chest are obtained. FINDINGS: There is chronic parenchymal change without suspicious focal air space opacity, pleural ef fusion, or pneumothorax seen. Persistent cardiomegaly. Surgical l change right shoulder level is part ially imaged. IMPRESSION: Chronic changes and cardiomegaly without acute pulmonary process.
[2021-12-17 14:34] LABS: INR 1.2 (<1.2); Partial Thromboplastin Time 27.7 sec (22.0-30.0); Prothrombin Time 12.4 sec (9.0-12.0)
--- NOTE | 2021-12-17 14:35 | XR ---
EXAMINATION TYPE: XR pelvis AP view DATE OF EXAM: 12/17/2021 CLINICAL HISTORY: Pain. Possible injury. TECHNIQUE: A single AP view of the pelvis is obtained. COMPARISON: CT abdomen and pelvis August 16, 2012. FINDINGS: There is no acute displaced fracture clearly evident in the pelvis. Moderate to severe axi al joint space loss in both hips redemonstrated. Pubic symphysis remains intact. Sacroiliac joints sh ow bilateral narrowing. Overlying left-sided vascular calcification is redemonstrated. IMPRESSION: There is no acute displaced fracture in the pelvis.
[2021-12-17 15:29] LABS: VBG PH 7.42 (7.31-7.41)
[2021-12-17] MEDS ORDERED: ACETAMINOPHEN TAB 325 MG TAB PO PRN (17:07)
[2021-12-17] MEDS ORDERED: ONDANSETRON 4 MG/2 ML VIAL IVP PRN (17:07)
[2021-12-17] MEDS ORDERED: NALOXONE 0.4 MG/ML 1 ML VIAL IV PRN (17:07)
[2021-12-17 17:09] LABS: Appearance,Urine Turbid (Clear); Bacteria,Urine Many /hpf; Bilirubin,Urine Negative (Negative); Blood,Urine Small (Negative); Color,Urine Yellow; Glucose,Urine (UA) Negative (Negative); Ketones,Urine Negative (Negative); Leukocyte Esterase,Urine Large (Negative); Nitrite,Urine Positive (Negative); PH, Urine 5.5 (5.0-8.0); Protein,Urine 1+ (Negative); RBC,Urine 34 /hpf (0-5); Specific Gravity,Urine 1.013 (1.001-1.035); Squamous Epithelial Cell,Urine 1 /hpf (0-4); Urobilinogen,Urine <2.0 mg/dL (<2.0); WBC,Urine >182 /hpf (0-5)
[2021-12-17] MEDS ORDERED: SODIUM CHLORIDE 0.9% 1,000 ML IV SCH (17:15)
[2021-12-17 17:17] LABS: Amphetamine Screen,Urine Not Detected (NotDetected); Barbiturate Screen,Urine Not Detected (NotDetected); Benzodiazepines Screen,Urine Not Detected (NotDetected); Cocaine Screen,Urine Not Detected (NotDetected); Methadone Screen, Urine Not Detected (NotDetected); Opiate Screen,Urine Detected (NotDetected); Oxycodone Screen, Urine Not Detected (NotDetected); Phencyclidine Screen,Urine Not Detected (NotDetected); Tricyclic Antidepressant,Urine Not Detected (NotDetected); Urn Cannabinoid Scrn Not Detected (NotDetected)
[2021-12-17] MEDS ORDERED: LORATADINE 10 MG TAB PO PRN (17:46)
--- NOTE | 2021-12-17 17:54 | P.HPIM ---
History of Present Illness H&P Date: 12/17/21 Chief Complaint: CC: AMS Patient is a 81-year-old female who is a patient of Dr. Magallanes with a past medical history of heart failure, COVID-19 diagnoses in September 2020, hypert ension and hyperlipidemia, severe persistent asthma, recurrent depression and general anxiety disorder, recurrent UTIs, intracranial hemorrhage status post evacuation in October 18 who presents to the ED with altered mental status. [facility] lives [facility]. Patient is a poor historian as her mental status is waxing and waning during my interview so history was obtained from granddaughter who was at bedside. Per granddaughter patient was confused and was not able to eat by herself today at the detention. She also states that since last week her grandmother has been speaking incoherently and has been mentioning her as if he is still alive. Patient herself states that they brought her in because her hand was shaking too much so she was not able to eat which made the staff upset. Patient is denying any shortness of breath, chest pain, nausea vomiting or dysuria. In the ED patient's UA was positive for UTI. CT head showed findings consistent with remote white matter ischemia and there was greater CSF prominence in the frontal lobes which is related to asymmetric atrophy. Chronic subdural hematoma or hygroma are in the differential diagnosis. Review of Systems 10 ROS reviewed and are negative except as noted in HPI Past Medical History Past Medical History: Asthma, Chest Pain / Angina, Diabetes Mellitus, Hyperlipidemia, Hypertension, Respiratory Disorder Additional Past Medical History / Comment(s): Migraine, Varicose Veins, Bronchitis/Pneumonia/Sinus Problems, January 17 had complete right shoulder surgery - problem with blood clots after surgery History of Any Multi-Drug Resistant Organisms: VRE Date of last positivie culture/infection: 04/27/21 MDRO Source:: VRE URINE Past Surgical History: Cholecystectomy, Heart Catheterization, Joint Replacement, Tonsillectomy Additional Past Surgical History / Comment(s): Bilateral Knee Replacement, Bilateral Rotator Cuff RepairComplete right shoulder surgery - January 17, 2015. Cardiac Catheterization - 2015 Past Anesthesia/Blood Transfusion Reactions: No Reported Reaction Past Psychological History: Anxiety, Depression Smoking Status: Never smoker Past Alcohol Use History: None Reported Past Drug Use History: None Reported - Past Family History Son(s) Family Medical History: Myocardial Infarction (NM) Additional Family Medical History / Comment(s): son was adopted Sister(s) Additional Family Medical History / Comment(s): heart ablation Mother Family Medical History: Myocardial Infarction (NM) Father Family Medical History: Myocardial Infarction (NM) Medications and Allergies Home Medications Medication Instructions Recorded Confirmed Type Atorvastatin Calcium [Lipitor] 10 mg PO HS 12/29/17 12/17/21 History Aspirin EC [Ecotrin Low Dose] 81 mg PO DAILY 11/18/18 12/17/21 History Isosorbide Mononitrate ER [Imdur] 60 mg PO DAILY 11/18/18 12/17/21 History Polyethylene Glycol 3350 [Clearlax] 17 gm PO DAILY 11/18/18 12/17/21 History Albuterol Sulfate [Ventolin HFA] 2 puff INHALATION RT-BID@08,199903/21/21 12/17/21 History Apixaban [Eliquis] 2.5 mg PO BID 03/21/21 12/17/21 History Cetirizine HCl [Zyrtec] 5 mg PO DAILY PRN 03/21/21 12/17/21 History Escitalopram [Lexapro] 10 mg PO DAILY 03/21/21 12/17/21 History Montelukast [Singulair] 10 mg PO HS 03/21/21 12/17/21 History Potassium Chloride ER [K-Dur 10] 10 meq PO DAILY 03/21/21 12/17/21 History carvediloL [Coreg] 3.125 mg PO BID@08,199903/21/21 12/17/21 History sitaGLIPtin [Januvia] 50 mg PO DAILY@0800 03/21/21 12/17/21 History Pregabalin [Lyrica] 150 mg PO BID #6 cap 03/25/21 12/17/21 Rx Spironolactone 12.5 mg PO DAILY #0 03/25/21 12/17/21 Rx Carbidopa/Levodopa [Carbidopa-Levo 1 tab PO QID@05,12,16,20 09/13/21 12/17/21 History ER 25-100 Tab] Ferrous Sulfate [Feosol] 325 mg PO HS 09/13/21 12/17/21 History Furosemide [Lasix] 40 mg PO DAILY@0800 09/13/21 12/17/21 History HYDROcodone/APAP 10-325MG [[place] 1 tab PO Q6H PRN 09/13/21 12/17/21 History 10-325] Multivitamins, Thera [Multivitamin 1 tab PO DAILY 09/13/21 12/17/21 History (formulary)] Omeprazole 20 mg PO DAILY 09/13/21 12/17/21 History Tamsulosin HCl [Flomax] 0.4 mg PO PC-SUPPER 09/13/21 12/17/21 History amLODIPine [Norvasc] 10 mg PO DAILY 09/13/21 12/17/21 History Acetaminophen [Tylenol] 650 mg PO Q6H PRN 12/17/21 12/17/21 History Allergies Allergy/AdvReac Type Severity Reaction Status Date / Time albuterol Allergy Rash/Hives Verified 12/17/21 17:03 carbamazepine [From Tegretol] Allergy Rash/Hives Verified 12/17/21 17:03 carisoprodol [From Soma] Allergy Rash/Hives Verified 12/17/21 17:03 ciprofloxacin [From Cipro] Allergy Rash/Hives Verified 12/17/21 17:03 ciprofloxacin HCl Allergy Rash/Hives Verified 12/17/21 17:03 [From Cipro] rice Allergy Unknown Verified 12/17/21 17:03 Sulfa (Sulfonamide Allergy Rash/Hives Verified 12/17/21 17:03 Antibiotics) sulfamethoxazole Allergy Unknown Verified 12/17/21 17:03 [From Bactrim] trimethoprim [From Bactrim] Allergy Unknown Verified 12/17/21 17:03 doxycycline AdvReac Nausea & Verified 12/17/21 17:03 Vomiting egg AdvReac Nausea & Verified 12/17/21 17:03 Vomiting & Diarrhea artificial sweetner in pop Allergy Rash/Hives Uncoded 12/17/21 17:03 Physical Exam Osteopathic Statement: *. No significant issues noted on an osteopathic structural exam other than those noted in the History and Physical/Consult. Vitals: Vital Signs Temp Pulse Resp BP Pulse Ox 12/17/21 12:50 98.6 F 81 16 116/69 99 Intake and Output 12/17/21 12/17/21 12/17/21 06:59 14:59 22:59 Other: Weight 113.398 kg General: [Alert and oriented x2 (name and place only), well nourished, no acute distress, appears chronically debilitated]. Eye: [PERRL, EOMI, normal conjunctiva]. HENT: [Normocephalic, clear tympanic membranes, normal hearing, moist oral mucosa, no scleral icterus, no sinus tenderness]. Neck: [Supple, non-tender, no carotid bruits, no JVD, no lymphadenopathy]. Lungs: Diminished breath sounds bilaterally Heart: [Normal rate, regular rhythm, no murmur, gallop or + pitting edema in bilateral lower extremities. Abdomen: [Soft, non-tender, non-distended, normal bowel sounds, no masses, obese. Musculoskeletal: [Normal range of motion and strength, no tenderness or swelling]. Neurologic: [Generalized weakness in all 4 extremities t]. Psychiatric: [Mental status waxing and waning]. Results CBC & Chem 7: 12/17/21 13:30 12/17/21 13:30 Labs: Abnormal Lab Results - Last 24 Hours (Table) 12/17/21 12/17/21 12/17/21 Range/Units 13:30 13:30 13:30 Neutrophils # 8.2 H (1.3-7.7) k/uL PT 12.4 H (9.0-12.0) sec INR 1.2 H (<1.2) VBG pH (7.31-7.41) Sodium 134 L (137-145) mmol/L BUN 27 H (7-17) mg/dL Creatinine 1.14 H (0.52-1.04) mg/dL POC Glucose (mg/dL) (75-99) mg/dL Calcium 7.5 L (8.4-10.2) mg/dL Total Bilirubin 2.1 H (0.2-1.3) mg/dL Total Protein 5.7 L (6.3-8.2) g/dL Albumin 2.7 L (3.5-5.0) g/dL Urine Appearance (Clear) Urine Protein (Negative) Urine Blood (Negative) Urine Nitrite (Negative) Ur Leukocyte Esterase (Negative) Urine RBC (0-5) /hpf Urine WBC (0-5) /hpf Urine WBC Clumps (None) /hpf Urine Bacteria (None) /hpf Urine Opiates Screen (NotDetected) 12/17/21 12/17/21 12/17/21 Range/Units 13:40 15:20 16:58 Neutrophils # (1.3-7.7) k/uL PT (9.0-12.0) sec INR (<1.2) VBG pH 7.42 H (7.31-7.41) Sodium (137-145) mmol/L BUN (7-17) mg/dL Creatinine (0.52-1.04) mg/dL POC Glucose (mg/dL) 120 H (75-99) mg/dL Calcium (8.4-10.2) mg/dL Total Bilirubin (0.2-1.3) mg/dL Total Protein (6.3-8.2) g/dL Albumin (3.5-5.0) g/dL Urine Appearance Turbid H (Clear) Urine Protein 1+ H (Negative) Urine Blood Small H (Negative) Urine Nitrite Positive H (Negative) Ur Leukocyte Esterase Large H (Negative) Urine RBC 34 H (0-5) /hpf Urine WBC >182 H (0-5) /hpf Urine WBC Clumps Many H (None) /hpf Urine Bacteria Many H (None) /hpf Urine Opiates Screen (NotDetected) 12/17/21 Range/Units 16:58 Neutrophils # (1.3-7.7) k/uL PT (9.0-12.0) sec INR (<1.2) VBG pH (7.31-7.41) Sodium (137-145) mmol/L BUN (7-17) mg/dL Creatinine (0.52-1.04) mg/dL POC Glucose (mg/dL) (75-99) mg/dL Calcium (8.4-10.2) mg/dL Total Bilirubin (0.2-1.3) mg/dL Total Protein (6.3-8.2) g/dL Albumin (3.5-5.0) g/dL Urine Appearance (Clear) Urine Protein (Negative) Urine Blood (Negative) Urine Nitrite (Negative) Ur Leukocyte Esterase (Negative) Urine RBC (0-5) /hpf Urine WBC (0-5) /hpf Urine WBC Clumps (None) /hpf Urine Bacteria (None) /hpf Urine Opiates Screen Detected H (NotDetected) Assessment and Plan Assessment: Generalized weakness Toxic metabolic encephalopathy with underlying dementia Acute urinary tract infection -We'll start patient on IV Rocephin -Follow up urine culture and blood culture -Consult PT OT -Hold sedating medications -CT head shows no acute change Chronic diastolic heart failure with mild exacerbation -Discontinue fluids -Resume Lasix and Aldactone in a.m. Chronic atrial fibrillation -Continue our close and Coreg Hypertension -Resume home meds Parkinson's disease -Resume Sinemet Severe persistent asthma and COPD -Resume albuterol and Singulair -Patient is chronically on 2 L nasal cannula. Patient currently satting well on her home O2 CK D stage III -Creatinine at baseline Diabetes mellitus type 2 -Sliding-scale insulin Hyperlipidemia: Resume statin CODE STATUS:full code; patient requests only one-time CPR and then to stop DVT prophylaxis: I will request Discussed with: Patient, ER, rn Anticipated length of stay > than [address]: Return to [facility] facility A total of 75 minutes was spent on the care of this complex patient more than 50% of the time was spent in counseling and care coordination.
--- NOTE | 2021-12-17 18:35 | ED ---
General Adult HPI - General Chief complaint: Altered Mental Status Stated complaint: Altered Mental Status Time Seen by Provider: 12/17/21 12:32 Source: patient, EMS, RN notes reviewed, old records reviewed Mode of arrival: EMS - History of Present Illness Initial comments: Patient is an 81-year-old female who presents from her nursing facility with the complaint for altered mental status and possible low blood pressure. Was found in her wheelchair acting tired. Blood pressure was said to be low but is not currently. Baseline is alert and oriented 4, and she is supposedly slow to answer questions. Blood sugar was within normal limits. sHe was sent here for further evaluation. When I speak with the patient, she is fully alert and oriented 4. She states she feels generally fatigued. Denies any abdominal pain, nausea, vomiting. Denies any chest pain, shortness of breath. She is on eliquis atrial fibrillation. Denies any falls or head injuries. Denies any urinary complaints including dysuria or hematuria. Presents over concern for her fatigue. Denies any fevers, chills, cough. Denies any sick contacts. - Related Data Home Medications Medication Instructions Recorded Confirmed Atorvastatin Calcium [Lipitor] 10 mg PO HS 12/29/17 12/17/21 Aspirin EC [Ecotrin Low Dose] 81 mg PO DAILY 11/18/18 12/17/21 Isosorbide Mononitrate ER [Imdur] 60 mg PO DAILY 11/18/18 12/17/21 Polyethylene Glycol 3350 [Clearlax] 17 gm PO DAILY 11/18/18 12/17/21 Albuterol Sulfate [Ventolin HFA] 2 puff INHALATION RT-BID@03/21/21 12/17/21 Apixaban [Eliquis] 2.5 mg PO BID 03/21/21 12/17/21 Cetirizine HCl [Zyrtec] 5 mg PO DAILY PRN 03/21/21 12/17/21 Escitalopram [Lexapro] 10 mg PO DAILY 03/21/21 12/17/21 Montelukast [Singulair] 10 mg PO HS 03/21/21 12/17/21 Potassium Chloride ER [K-Dur 10] 10 meq PO DAILY 03/21/21 12/17/21 carvediloL [Coreg] 3.125 mg PO BID@0800,199903/21/21 12/17/21 sitaGLIPtin [Januvia] 50 mg PO DAILY@0800 03/21/21 12/17/21 Carbidopa/Levodopa [Carbidopa-Levo 1 tab PO QID@05,12,16,20 09/13/21 12/17/21 ER 25-100 Tab] Ferrous Sulfate [Feosol] 325 mg PO HS 09/13/21 12/17/21 Furosemide [Lasix] 40 mg PO DAILY@0800 09/13/21 12/17/21 HYDROcodone/APAP 10-325MG [[place] 1 tab PO Q6H PRN 09/13/21 12/17/21 10-325] Multivitamins, Thera [Multivitamin 1 tab PO DAILY 09/13/21 12/17/21 (formulary)] Omeprazole 20 mg PO DAILY 09/13/21 12/17/21 Tamsulosin HCl [Flomax] 0.4 mg PO PC-SUPPER 09/13/21 12/17/21 amLODIPine [Norvasc] 10 mg PO DAILY 09/13/21 12/17/21 Acetaminophen [Tylenol] 650 mg PO Q6H PRN 12/17/21 12/17/21 Previous Rx's Medication Instructions Recorded Pregabalin [Lyrica] 150 mg PO BID #6 cap 03/25/21 Spironolactone 12.5 mg PO DAILY #0 03/25/21 Allergies Allergy/AdvReac Type Severity Reaction Status Date / Time albuterol Allergy Rash/Hives Verified 12/17/21 17:03 carbamazepine [From Tegretol] Allergy Rash/Hives Verified 12/17/21 17:03 carisoprodol [From Soma] Allergy Rash/Hives Verified 12/17/21 17:03 ciprofloxacin [From Cipro] Allergy Rash/Hives Verified 12/17/21 17:03 ciprofloxacin HCl Allergy Rash/Hives Verified 12/17/21 17:03 [From Cipro] rice Allergy Unknown Verified 12/17/21 17:03 Sulfa (Sulfonamide Allergy Rash/Hives Verified 12/17/21 17:03 Antibiotics) sulfamethoxazole Allergy Unknown Verified 12/17/21 17:03 [From Bactrim] trimethoprim [From Bactrim] Allergy Unknown Verified 12/17/21 17:03 doxycycline AdvReac Nausea & Verified 12/17/21 17:03 Vomiting egg AdvReac Nausea & Verified 12/17/21 17:03 Vomiting & Diarrhea artificial sweetner in pop Allergy Rash/Hives Uncoded 12/17/21 17:03 Review of Systems ROS Statement: Those systems with pertinent positive or pertinent negative responses have been documented in the HPI. Review of Systems: CONST: Denies fever EYES: Denies blurry vision ENT: Denies nasal congestion C/V: Denies Chest pain RESP: Denies shortness of breath GI: Denies abdominal pain : Denies dysuria SKIN: Denies rash. MSK: Denies joint pain. NEURO: Denies headache ROS Other: All systems not noted in ROS Statement are negative. Past Medical History Past Medical History: Asthma, Chest Pain / Angina, Diabetes Mellitus, Hyperlipidemia, Hypertension, Respiratory Disorder Additional Past Medical History / Comment(s): Migraine, Varicose Veins, Bronchitis/Pneumonia/Sinus Problems, January 17 had complete right shoulder surgery - problem with blood clots after surgery History of Any Multi-Drug Resistant Organisms: VRE Date of last positivie culture/infection: 04/27/21 MDRO Source:: VRE URINE Past Surgical History: Cholecystectomy, Heart Catheterization, Joint Replacement, Tonsillectomy Additional Past Surgical History / Comment(s): Bilateral Knee Replacement, Bilateral Rotator Cuff RepairComplete right shoulder surgery - January 17, 2015. Cardiac Catheterization - 2015 Past Anesthesia/Blood Transfusion Reactions: No Reported Reaction Past Psychological History: Anxiety, Depression Smoking Status: Never smoker Past Alcohol Use History: None Reported Past Drug Use History: None Reported - Past Family History Son(s) Family Medical History: Myocardial Infarction (MD) Additional Family Medical History / Comment(s): son was adopted Sister(s) Additional Family Medical History / Comment(s): heart ablation Mother Family Medical History: Myocardial Infarction (MD) Father Family Medical History: Myocardial Infarction (MD) General Exam - General Exam Comments Initial Comments: General: Appears in no acute distress. HEAD: Normal with no signs of head trauma. EYES: PERRLA, EOMI, conjunctiva normal, no discharge. ENT: Hearing grossly intact, normal oropharynx. RESPIRATORY: Clear breath sounds bilaterally. No wheezes, rales, or rhonchi. C/V: Irregular rhythm, regular rate. S1 and S2 auscultated, no edema, peripheral pulses 2+ and intact throughout ABD: Abd is soft, nontender, nondistended. Patient is obese. EXT: Normal range of motion, no obvious deformity SKIN: No rashes or lesions observed on exposed skin. NEURO: Alert and oriented 4. No focal sensory strength deficits. NIH is 0. GCS is 15. Is slow to respond to questions, but no obvious deficits otherwise. Baseline is confined to wheelchair. Course Vital Signs 12/17/21 12:50 Temperature 98.6 F Pulse Rate 81 Respiratory 16 Rate Blood Pressure 116/69 O2 Sat by Pulse 99 Oximetry Medical Decision Making - Medical Decision Making Based on patient's presentation and physical exam, we will obtain a broad workup including infectious labs, CT brain, cardiac workup. She was in agreement this plan. She'll be given a 1 L fluid bolus. Vital signs otherwise within normal limits and stable at this time. EKG showed atrial fibrillation that is rate controlled. No obvious signs of ischemia. Laboratory studies are remarkable for a slightly elevated BUN/creatinine 27 and 1.14 respectively. Patient's calcium is mildly decreased some 0.5. Troponin is negative. Ammonia is negative. BNP is slightly elevated to 5800. Toxicology is positive for opiates. She is Covid, flu negative. There was a delay in obtaining the urinalysis, however when it finally returned it was positive for UTI. Pelvic x-ray is unremarkable and shows no acute fracture. Chest x-ray reveals no acute cardiopulmonary process. Doppler of the right leg, as the patient is having some swelling reveals soft tissue edema in the foot but no signs of DVT. Plain CT revealed no acute intracranial process. There are chronic changes. On reevaluation come patient is feeling somewhat improved. I did discuss with her as well as family members that she has a UTI. This is likely the source of her weakness. She'll be started on IV antibiotics, Rocephin and admitted to the hospital. Family and patient are in agreement this plan. I spoke with the admitting team physician assistant health educator, Delia who accepted the admission. Patient was therefore admitted to observation in stable condition to some physician group under Dr. Martinez. - Lab Data Result diagrams: 12/17/21 13:30 12/17/21 13:30 Lab Results 12/17/21 12/17/21 12/17/21 Range/Units 13:30 13:30 13:30 WBC 10.6 (3.8-10.6) k/uL RBC 4.25 (3.80-5.40) m/uL Hgb 13.0 (11.4-16.0) gm/dL Hct 38.8 (34.0-46.0) % MCV 91.3 (80.0-100.0) fL MCH 30.6 (25.0-35.0) pg MCHC 33.5 (31.0-37.0) g/dL RDW 13.1 (11.5-15.5) % Plt Count 204 (150-450) k/uL MPV 8.5 Neutrophils % 77 % Lymphocytes % 10 % Monocytes % 8 % Eosinophils % 3 % Basophils % 1 % Neutrophils # 8.2 H (1.3-7.7) k/uL Lymphocytes # 1.1 (1.0-4.8) k/uL Monocytes # 0.8 (0-1.0) k/uL Eosinophils # 0.3 (0-0.7) k/uL Basophils # 0.1 (0-0.2) k/uL PT 12.4 H (9.0-12.0) sec INR 1.2 H (<1.2) APTT 27.7 (22.0-30.0) sec VBG pH (7.31-7.41) VBG pCO2 (37-51) mmHg VBG HCO3 (24-28) mmol/L Sodium 134 L (137-145) mmol/L Potassium 4.2 (3.5-5.1) mmol/L Chloride 106 (98-107) mmol/L Carbon Dioxide 25 (22-30) mmol/L Anion Gap 3 mmol/L BUN 27 H (7-17) mg/dL Creatinine 1.14 H (0.52-1.04) mg/dL Est GFR (CKD-EPI)AfAm 52 (>60 ml/min/1.73 sqM) Est GFR (CKD-EPI)NonAf 45 (>60 ml/min/1.73 sqM) Glucose 93 (74-99) mg/dL POC Glucose (mg/dL) (75-99) mg/dL POC Glu Switchboard Operator Supervisor ID Plasma Lactic Acid Manas (0.7-2.0) mmol/L Calcium 7.5 L (8.4-10.2) mg/dL Total Bilirubin 2.1 H (0.2-1.3) mg/dL AST 30 (14-36) U/L ALT <6 (4-34) U/L Alkaline Phosphatase 41 (38-126) U/L Ammonia (<30) umol/L Troponin I (0.000-0.034) ng/mL NT-Pro-B Natriuret Pep pg/mL Total Protein 5.7 L (6.3-8.2) g/dL Albumin 2.7 L (3.5-5.0) g/dL Urine Color Urine Appearance (Clear) Urine pH (5.0-8.0) Ur Specific [place] (1.001-1.035) Urine Protein (Negative) Urine Glucose (UA) (Negative) Urine Ketones (Negative) Urine Blood (Negative) Urine Nitrite (Negative) Urine Bilirubin (Negative) Urine Urobilinogen (<2.0) mg/dL Ur Leukocyte Esterase (Negative) Urine RBC (0-5) /hpf Urine WBC (0-5) /hpf Urine WBC Clumps (None) /hpf Ur Squamous Epith Cells (0-4) /hpf Urine Bacteria (None) /hpf Urine Opiates Screen (NotDetected) Ur Oxycodone Screen (NotDetected) Urine Methadone Screen (NotDetected) Ur Propoxyphene Screen (NotDetected) Ur Barbiturates Screen (NotDetected) U Tricyclic Antidepress (NotDetected) Ur Phencyclidine Scrn (NotDetected) Ur Amphetamines Screen (NotDetected) U Methamphetamines Scrn (NotDetected) U Benzodiazepines Scrn (NotDetected) Urine Cocaine Screen (NotDetected) U Marijuana (THC) Screen (NotDetected) Serum Alcohol <10 mg/dL Coronavirus (PCR) (Not Detectd) Influenza Type A RNA (Not Detectd) Influenza Type B (PCR) (Not Detectd) 12/17/21 12/17/21 12/17/21 Range/Units 13:30 13:30 13:30 WBC (3.8-10.6) k/uL RBC (3.80-5.40) m/uL Hgb (11.4-16.0) gm/dL Hct (34.0-46.0) % MCV (80.0-100.0) fL MCH (25.0-35.0) pg MCHC (31.0-37.0) g/dL RDW (11.5-15.5) % Plt Count (150-450) k/uL MPV Neutrophils % % Lymphocytes % % Monocytes % % Eosinophils % % Basophils % % Neutrophils # (1.3-7.7) k/uL Lymphocytes # (1.0-4.8) k/uL Monocytes # (0-1.0) k/uL Eosinophils # (0-0.7) k/uL Basophils # (0-0.2) k/uL PT (9.0-12.0) sec INR (<1.2) APTT (22.0-30.0) sec VBG pH (7.31-7.41) VBG pCO2 (37-51) mmHg VBG HCO3 (24-28) mmol/L Sodium (137-145) mmol/L Potassium (3.5-5.1) mmol/L Chloride (98-107) mmol/L Carbon Dioxide (22-30) mmol/L Anion Gap mmol/L BUN (7-17) mg/dL Creatinine (0.52-1.04) mg/dL Est GFR (CKD-EPI)AfAm (>60 ml/min/1.73 sqM) Est GFR (CKD-EPI)NonAf (>60 ml/min/1.73 sqM) Glucose (74-99) mg/dL POC Glucose (mg/dL) (75-99) mg/dL POC Glu Switchboard Operator Supervisor ID Plasma Lactic Acid Manas 0.9 (0.7-2.0) mmol/L Calcium (8.4-10.2) mg/dL Total Bilirubin (0.2-1.3) mg/dL AST (14-36) U/L ALT (4-34) U/L Alkaline Phosphatase (38-126) U/L Ammonia <9 (<30) umol/L Troponin I <0.012 (0.000-0.034) ng/mL NT-Pro-B Natriuret Pep 5810 pg/mL Total Protein (6.3-8.2) g/dL Albumin (3.5-5.0) g/dL Urine Color Urine Appearance (Clear) Urine pH (5.0-8.0) Ur Specific [place] (1.001-1.035) Urine Protein (Negative) Urine Glucose (UA) (Negative) Urine Ketones (Negative) Urine Blood (Negative) Urine Nitrite (Negative) Urine Bilirubin (Negative) Urine Urobilinogen (<2.0) mg/dL Ur Leukocyte Esterase (Negative) Urine RBC (0-5) /hpf Urine WBC (0-5) /hpf Urine WBC Clumps (None) /hpf Ur Squamous Epith Cells (0-4) /hpf Urine Bacteria (None) /hpf Urine Opiates Screen (NotDetected) Ur Oxycodone Screen (NotDetected) Urine Methadone Screen (NotDetected) Ur Propoxyphene Screen (NotDetected) Ur Barbiturates Screen (NotDetected) U Tricyclic Antidepress (NotDetected) Ur Phencyclidine Scrn (NotDetected) Ur Amphetamines Screen (NotDetected) U Methamphetamines Scrn (NotDetected) U Benzodiazepines Scrn (NotDetected) Urine Cocaine Screen (NotDetected) U Marijuana (THC) Screen (NotDetected) Serum Alcohol mg/dL Coronavirus (PCR) (Not Detectd) Influenza Type A RNA (Not Detectd) Influenza Type B (PCR) (Not Detectd) 12/17/21 12/17/21 12/17/21 Range/Units 13:40 14:44 14:44 WBC (3.8-10.6) k/uL RBC (3.80-5.40) m/uL Hgb (11.4-16.0) gm/dL Hct (34.0-46.0) % MCV (80.0-100.0) fL MCH (25.0-35.0) pg MCHC (31.0-37.0) g/dL RDW (11.5-15.5) % Plt Count (150-450) k/uL MPV Neutrophils % % Lymphocytes % % Monocytes % % Eosinophils % % Basophils % % Neutrophils # (1.3-7.7) k/uL Lymphocytes # (1.0-4.8) k/uL Monocytes # (0-1.0) k/uL Eosinophils # (0-0.7) k/uL Basophils # (0-0.2) k/uL PT (9.0-12.0) sec INR (<1.2) APTT (22.0-30.0) sec VBG pH (7.31-7.41) VBG pCO2 (37-51) mmHg VBG HCO3 (24-28) mmol/L Sodium (137-145) mmol/L Potassium (3.5-5.1) mmol/L Chloride (98-107) mmol/L Carbon Dioxide (22-30) mmol/L Anion Gap mmol/L BUN (7-17) mg/dL Creatinine (0.52-1.04) mg/dL Est GFR (CKD-EPI)AfAm (>60 ml/min/1.73 sqM) Est GFR (CKD-EPI)NonAf (>60 ml/min/1.73 sqM) Glucose (74-99) mg/dL POC Glucose (mg/dL) 120 H (75-99) mg/dL POC Glu Switchboard Operator Supervisor ID Michaela Melton Plasma Lactic Acid Manas (0.7-2.0) mmol/L Calcium (8.4-10.2) mg/dL Total Bilirubin (0.2-1.3) mg/dL AST (14-36) U/L ALT (4-34) U/L Alkaline Phosphatase (38-126) U/L Ammonia (<30) umol/L Troponin I (0.000-0.034) ng/mL NT-Pro-B Natriuret Pep pg/mL Total Protein (6.3-8.2) g/dL Albumin (3.5-5.0) g/dL Urine Color Urine Appearance (Clear) Urine pH (5.0-8.0) Ur Specific [place] (1.001-1.035) Urine Protein (Negative) Urine Glucose (UA) (Negative) Urine Ketones (Negative) Urine Blood (Negative) Urine Nitrite (Negative) Urine Bilirubin (Negative) Urine Urobilinogen (<2.0) mg/dL Ur Leukocyte Esterase (Negative) Urine RBC (0-5) /hpf Urine WBC (0-5) /hpf Urine WBC Clumps (None) /hpf Ur Squamous Epith Cells (0-4) /hpf Urine Bacteria (None) /hpf Urine Opiates Screen (NotDetected) Ur Oxycodone Screen (NotDetected) Urine Methadone Screen (NotDetected) Ur Propoxyphene Screen (NotDetected) Ur Barbiturates Screen (NotDetected) U Tricyclic Antidepress (NotDetected) Ur Phencyclidine Scrn (NotDetected) Ur Amphetamines Screen (NotDetected) U Methamphetamines Scrn (NotDetected) U Benzodiazepines Scrn (NotDetected) Urine Cocaine Screen (NotDetected) U Marijuana (THC) Screen (NotDetected) Serum Alcohol mg/dL Coronavirus (PCR) Not Detected (Not Detectd) Influenza Type A RNA Not Detected (Not Detectd) Influenza Type B (PCR) Not Detected (Not Detectd) 12/17/21 12/17/21 12/17/21 Range/Units 15:20 16:58 16:58 WBC (3.8-10.6) k/uL RBC (3.80-5.40) m/uL Hgb (11.4-16.0) gm/dL Hct (34.0-46.0) % MCV (80.0-100.0) fL MCH (25.0-35.0) pg MCHC (31.0-37.0) g/dL RDW (11.5-15.5) % Plt Count (150-450) k/uL MPV Neutrophils % % Lymphocytes % % Monocytes % % Eosinophils % % Basophils % % Neutrophils # (1.3-7.7) k/uL Lymphocytes # (1.0-4.8) k/uL Monocytes # (0-1.0) k/uL Eosinophils # (0-0.7) k/uL Basophils # (0-0.2) k/uL PT (9.0-12.0) sec INR (<1.2) APTT (22.0-30.0) sec VBG pH 7.42 H (7.31-7.41) VBG pCO2 38 (37-51) mmHg VBG HCO3 24 (24-28) mmol/L Sodium (137-145) mmol/L Potassium (3.5-5.1) mmol/L Chloride (98-107) mmol/L Carbon Dioxide (22-30) mmol/L Anion Gap mmol/L BUN (7-17) mg/dL Creatinine (0.52-1.04) mg/dL Est GFR (CKD-EPI)AfAm (>60 ml/min/1.73 sqM) Est GFR (CKD-EPI)NonAf (>60 ml/min/1.73 sqM) Glucose (74-99) mg/dL POC Glucose (mg/dL) (75-99) mg/dL POC Glu Switchboard Operator Supervisor ID Plasma Lactic Acid Manas (0.7-2.0) mmol/L Calcium (8.4-10.2) mg/dL Total Bilirubin (0.2-1.3) mg/dL AST (14-36) U/L ALT (4-34) U/L Alkaline Phosphatase (38-126) U/L Ammonia (<30) umol/L Troponin I (0.000-0.034) ng/mL NT-Pro-B Natriuret Pep pg/mL Total Protein (6.3-8.2) g/dL Albumin (3.5-5.0) g/dL Urine Color Yellow Urine Appearance Turbid H (Clear) Urine pH 5.5 (5.0-8.0) Ur Specific [place] 1.013 (1.001-1.035) Urine Protein 1+ H (Negative) Urine Glucose (UA) Negative (Negative) Urine Ketones Negative (Negative) Urine Blood Small H (Negative) Urine Nitrite Positive H (Negative) Urine Bilirubin Negative (Negative) Urine Urobilinogen <2.0 (<2.0) mg/dL Ur Leukocyte Esterase Large H (Negative) Urine RBC 34 H (0-5) /hpf Urine WBC >182 H (0-5) /hpf Urine WBC Clumps Many H (None) /hpf Ur Squamous Epith Cells 1 (0-4) /hpf Urine Bacteria Many H (None) /hpf Urine Opiates Screen Detected H (NotDetected) Ur Oxycodone Screen Not Detected (NotDetected) Urine Methadone Screen Not Detected (NotDetected) Ur Propoxyphene Screen Not Detected (NotDetected) Ur Barbiturates Screen Not Detected (NotDetected) U Tricyclic Antidepress Not Detected (NotDetected) Ur Phencyclidine Scrn Not Detected (NotDetected) Ur Amphetamines Screen Not Detected (NotDetected) U Methamphetamines Scrn Not Detected (NotDetected) U Benzodiazepines Scrn Not Detected (NotDetected) Urine Cocaine Screen Not Detected (NotDetected) U Marijuana (THC) Screen Not Detected (NotDetected) Serum Alcohol mg/dL Coronavirus (PCR) (Not Detectd) Influenza Type A RNA (Not Detectd) Influenza Type B (PCR) (Not Detectd) - EKG Data -: EKG Interpreted by Me EKG Comments: 12-lead Electrocardiogram Interpretation Note EKG was reviewed and interpreted by myself. 12-lead ECG performed at 1322 is interpreted by me as revealing atrial fibrillation, rate controlled at a rate of 70 beats per minute. [place] is normal. NC interval is unobtainable, QRS duration is 90 ms, QTc is 397 ms. There is an isolated T-wave inversion in lead V2, which is seen on prior EKGs.. There were no ST or T wave abnormalities to suggest myocardial ischemia or injury. R wave progression across the precordium was satisfactory. By my interpretation this EKG is non-diagnostic for acute ischemia. Disposition Clinical Impression: Fatigue, UTI (urinary tract infection), Weakness, History of atrial fibrillation Disposition: ADMITTED IP TO THIS HOSP Condition: Stable
[2021-12-17 19:34] LABS: Glucose,Whole Blood 164 mg/dL (75-99)
[2021-12-17] MEDS: INSULIN ASPART (NovoLOG) 100 UNIT/ML VIAL SQ SCH (19:51)
[2021-12-17] MEDS: ALBUTEROL NEBULIZED 2.5 MG/3 ML INHALATION SCH (19:56)
[2021-12-17] MEDS: ATORVASTATIN 10 MG TAB PO SCH (19:57)
[2021-12-17] MEDS: MONTELUKAST 10 MG TAB PO SCH (19:57)
[2021-12-17] MEDS: FERROUS SULFATE 325 MG TAB PO SCH (19:57)
[2021-12-17] MEDS: TAMSULOSIN 0.4 MG CAP.ER.24H PO SCH (19:57)
[2021-12-17] MEDS: carvediloL 3.125 MG TAB PO SCH (19:57)
[2021-12-17] MEDS: CARBIDOPA-LEVODOPA ER 25-100MG 1 EACH TABLET.ER PO SCH (19:58)
[2021-12-17] MEDS: APIXABAN 2.5 MG TABLET PO SCH (19:58)
[2021-12-18] MEDS: CARBIDOPA-LEVODOPA ER 25-100MG 1 EACH TABLET.ER PO SCH ×3 (05:25→17:14)
[2021-12-18 07:45] LABS: Glucose,Whole Blood 101 mg/dL (75-99)
[2021-12-18] MEDS: ALBUTEROL NEBULIZED 2.5 MG/3 ML INHALATION SCH ×2 (07:50→19:56)
[2021-12-18] MEDS: MULTIVITAMINS, THERA 1 EACH TAB PO SCH (09:22)
[2021-12-18] MEDS: ASPIRIN 81 MG PO SCH (09:22)
[2021-12-18] MEDS: SPIRONOLACTONE 25 MG TAB PO SCH (09:22)
[2021-12-18] MEDS: FUROSEMIDE 40 MG TAB PO SCH (09:22)
[2021-12-18] MEDS: amLODIPine 10 MG TAB PO SCH (09:22)
[2021-12-18] MEDS: APIXABAN 2.5 MG TABLET PO SCH ×2 (09:22→20:29)
[2021-12-18] MEDS: carvediloL 3.125 MG TAB PO SCH ×2 (09:23→20:30)
[2021-12-18] MEDS: ISOSORBIDE MONONITRATE ER 60 MG TAB.ER.24H PO SCH (09:23)
[2021-12-18] MEDS: ESCITALOPRAM 10 MG TAB PO SCH (09:23)
[2021-12-18] MEDS: INSULIN ASPART (NovoLOG) 100 UNIT/ML VIAL SQ SCH ×4 (09:23→20:31)
[2021-12-18] MEDS: PANTOPRAZOLE 40 MG TABLET PO SCH (09:23)
[2021-12-18 09:35] LABS: Basophils # (A) 0.02 X 10*3/uL (0.00-0.10); Basophils % (A) 0.2 %; HCT 41.4 % (37.2-46.3); HGB 13.1 g/dL (12.0-15.0); Immature Grans, Automated 0.4 %; Lymphocytes # (A) 0.76 X 10*3/uL (0.90-5.00); Lymphocytes % (A) 7.7 %; MCH 28.7 pg (27.0-32.0); MCHC 31.6 g/dL (32.0-37.0); MCV 90.8 fL (80.0-97.0); Mean Platelet Volume 10.8 fL (9.5-12.2); Monocytes # (A) 1.32 X 10*3/uL (0.20-1.00); Monocytes % (A) 13.3 %; NRBC Per 100 WBC 0 /100 WBCS (0.0-0.0); Neutrophils # (A) 7.68 X 10*3/uL (1.80-7.70); Neutrophils % (A) 77.4 %; Platelet Count 172 X 10*3/uL (140-440); RBC 4.56 X 10*6/uL (4.10-5.20); RDW 13.2 % (11.5-14.5); WBC 9.92 X 10*3/uL (4.50-10.00)
[2021-12-18 09:40] LABS: African American GFR (CKD) 44.8 (60.0-200.0); BUN/Creat Ratio 19.84 Ratio (12.00-20.00); Blood Urea Nitrogen 25.4 mg/dL (9.0-27.0); Carbon Dioxide 23.7 mmol/L (20.0-27.5); Non-African American GFR(CKD) 38.6 (60.0-200.0); Potassium 4.1 mmol/L (3.5-5.5)
[2021-12-18 12:24] LABS: Glucose,Whole Blood 133 mg/dL (75-99)
--- NOTE | 2021-12-18 15:33 | P.PN ---
Subjective Progress Note Date: 12/18/21 Patient is a 81-year-old female who is a patient of Dr. Magallanes with a past medical history of heart failure, COVID-19 diagnoses in September 2020, hypertension and hyperlipidemia, severe persistent asthma, recurrent depression and general anxiety disorder, recurrent UTIs, intracranial hemorrhage status post evacuation in October 18 who presents to the ED with altered mental status. Patient found to have a UTI as well as bacteremia. Patient currently on IV Rocephin. ID has been consulted This morning patient states that she feels tired and fatigued. She is AAO 2. Family is at bedside and all questions answered to their satisfaction Objective - Vital Signs Vital signs: Vital Signs Temp 98.2 F 12/18/21 15:00 Pulse 88 12/18/21 15:00 Resp 16 12/18/21 15:00 BP 119/74 12/18/21 15:00 Pulse Ox 95 12/18/21 15:00 Intake & Output 12/17/21 12/18/21 12/18/21 18:59 06:59 18:59 Intake Total 168 Output Total 600 800 Balance -600 -632 Weight 113.398 kg 117 kg Intake: Intake, IV Titration 50 Amount cefTRIAXone 1 gm In 50 Sodium Chloride 0.9% 50 ml @ 100 mls/hr IVPB Q24HR [facility] Rx#:[id number] Oral 118 Output: Urine 600 800 Other: Voiding Method External Catheter External Catheter - Exam General examination - Alert and Oriented 2 in NAD, appears chronically debilit ated Heart - + S1S2 no murmurs Lungs -diminished breath sounds bilaterally Abdomen soft NT ND +ve BS, obese Extremities -+2 pitting edema bilateral lower extremities PIPELAYING FITTER - Moving all 4 extremities spontaneously Psych - Calm and cooperative - Labs CBC & Chem 7: 12/18/21 06:48 12/18/21 06:48 Labs: Abnormal Lab Results - Last 24 Hours (Table) 12/17/21 12/17/21 12/17/21 Range/Units 15:20 15:58 16:58 MCHC (32.0-37.0) g/dL Lymphocytes # (0.90-5.00) X 10*3/uL Monocytes # (0.20-1.00) X 10*3/uL VBG pH 7.42 H (7.31-7.41) Est GFR (CKD-EPI)AfAm (60.0-200.0) Est GFR (CKD-EPI)NonAf (60.0-200.0) POC Glucose (mg/dL) (75-99) mg/dL Urine Appearance Turbid H (Clear) Urine Protein 1+ H (Negative) Urine Blood Small H (Negative) Urine Nitrite Positive H (Negative) Ur Leukocyte Esterase Large H (Negative) Urine RBC 34 H (0-5) /hpf Urine WBC >182 H (0-5) /hpf Urine WBC Clumps Many H (None) /hpf Urine Bacteria Many H (None) /hpf Urine Opiates Screen Detected H (NotDetected) 12/17/21 12/18/21 12/18/21 Range/Units 19:32 06:48 06:48 MCHC 31.6 L (32.0-37.0) g/dL Lymphocytes # 0.76 L (0.90-5.00) X 10*3/uL Monocytes # 1.32 H (0.20-1.00) X 10*3/uL VBG pH (7.31-7.41) Est GFR (CKD-EPI)AfAm 44.8 L (60.0-200.0) Est GFR (CKD-EPI)NonAf 38.6 L (60.0-200.0) POC Glucose (mg/dL) 164 H (75-99) mg/dL Urine Appearance (Clear) Urine Protein (Negative) Urine Blood (Negative) Urine Nitrite (Negative) Ur Leukocyte Esterase (Negative) Urine RBC (0-5) /hpf Urine WBC (0-5) /hpf Urine WBC Clumps (None) /hpf Urine Bacteria (None) /hpf Urine Opiates Screen (NotDetected) 12/18/21 12/18/21 Range/Units 07:43 12:22 MCHC (32.0-37.0) g/dL Lymphocytes # (0.90-5.00) X 10*3/uL Monocytes # (0.20-1.00) X 10*3/uL VBG pH (7.31-7.41) Est GFR (CKD-EPI)AfAm (60.0-200.0) Est GFR (CKD-EPI)NonAf (60.0-200.0) POC Glucose (mg/dL) 101 H 133 H (75-99) mg/dL Urine Appearance (Clear) Urine Protein (Negative) Urine Blood (Negative) Urine Nitrite (Negative) Ur Leukocyte Esterase (Negative) Urine RBC (0-5) /hpf Urine WBC (0-5) /hpf Urine WBC Clumps (None) /hpf Urine Bacteria (None) /hpf Urine Opiates Screen (NotDetected) Microbiology - Last 24 Hours (Table) 12/17/21 13:30 Blood Culture Gram Stain - Preliminary Blood Blood Culture - Preliminary Streptococcus species 12/17/21 13:30 Blood Culture - Final Blood 12/17/21 16:58 Urine Culture - Preliminary Urine,Voided Assessment and Plan Assessment: Generalized weakness Toxic metabolic encephalopathy with underlying dementia Acute urinary tract infection Streptococcal bacteremia -We'll start patient on IV Rocephin -Follow up urine culture and blood culture until finalized -Consult PT OT -Hold sedating medications -CT head shows no acute change -Consult infectious disease Chronic diastolic heart failure with mild exacerbation -Discontinue fluids -Resume Lasix and Aldactone in a.m. Chronic atrial fibrillation -Continue our close and Coreg Hypertension -Resume home meds Parkinson's disease -Resume Sinemet Severe persistent asthma and COPD -Resume albuterol and Singulair -Patient is chronically on 2 L nasal cannula. Patient currently satting well on her home O2 CK D stage III -Creatinine at baseline -Creatinine improved slightly. Continue to monitor creatinine continues to increase we'll have to hold diuretics Diabetes mellitus type 2 -Sliding-scale insulin Hyperlipidemia: Resume statin CODE STATUS:full code; patient requests only one-time CPR and then to stop DVT prophylaxis: Joey Anticipated length of stay > than [address]: Return to assisted facility
[2021-12-18 16:59] LABS: Glucose,Whole Blood 138 mg/dL (75-99)
[2021-12-18] MEDS: TAMSULOSIN 0.4 MG CAP.ER.24H PO SCH (18:44)
[2021-12-18 20:05] LABS: Glucose,Whole Blood 195 mg/dL (75-99)
[2021-12-18] MEDS: MONTELUKAST 10 MG TAB PO SCH (20:29)
[2021-12-18] MEDS: ATORVASTATIN 10 MG TAB PO SCH (20:29)
[2021-12-18] MEDS: FERROUS SULFATE 325 MG TAB PO SCH (20:30)
--- NOTE | 2021-12-18 22:50 | P.CONS ---
History of Present Illness - Reason for Consult Consult date: 12/18/21 Bacteremia Requesting physician: Salvador Martinez - Chief Complaint Mental status changes 1 day - History of Present Illness Patient is 81-year-old female with a past medical history significant for hypertension hyperlipidemia history of depression anxiety recurrent UTI and intracranial hemorrhage, presenting to the ER last evening for evaluation of mental status changes patient apparently was noticed to be confused and was not able to eat by herself at the intermediate with the symptom the patient was brought to the ER on arrival to the ER patient was afebrile and no fever have been recorded subsequently patient did have normal white count with mild left shift BUN and creatinine was mildly elevated liver enzymes are normal patient did have a positive UA with large leukocyte esterase more than 1-2 WBC and many bacteria urine showing gram-negative patient blood culture showing Streptococcus species that has prompted this infectious disease consultation patient did have a chest x-ray chronic changes and cardiomegaly without acute pulmonary process patient is slightly more awake however not a very good historian her mother specifically denies having any chest pain shortness of breath or cough no abdominal pain no diarrhea currently with no open wound or any drainage Review of Systems Positive point has been mentioned in the HPI rest of the systems are negative Past Medical History Past Medical History: Asthma, Chest Pain / Angina, Diabetes Mellitus, Hyperlipidemia, Hypertension, Respiratory Disorder Additional Past Medical History / Comment(s): Migraine, Varicose Veins, Bronchitis/Pneumonia/Sinus Problems, January 17 had complete right shoulder surgery - problem with blood clots after surgery 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 Cardiac Catheterization - 2015 Past Anesthesia/Blood Transfusion Reactions: No Reported Reaction Past Psychological History: Anxiety, Depression Smoking Status: Never smoker Past Alcohol Use History: None Reported Past Drug Use History: None Reported - Past Family History Son(s) Family Medical History: Myocardial Infarction ([place]) Additional Family Medical History / Comment(s): son was adopted Sister(s) Additional Family Medical History / Comment(s): heart ablation Mother Family Medical History: Myocardial Infarction ([place]) Father Family Medical History: Myocardial Infarction ([place]) Medications and Allergies Home Medications Medication Instructions Recorded Confirmed Type Atorvastatin Calcium [Lipitor] 10 mg PO HS 12/29/17 12/17/21 History Aspirin EC [Ecotrin Low Dose] 81 mg PO DAILY 11/18/18 12/17/21 History Isosorbide Mononitrate ER [Imdur] 60 mg PO DAILY 11/18/18 12/17/21 History Polyethylene Glycol 3350 [Clearlax] 17 gm PO DAILY 11/18/18 12/17/21 History Albuterol Sulfate [Ventolin HFA] 2 puff INHALATION RT-BID@0800,199903/21/21 12/17/21 History Apixaban [Eliquis] 2.5 mg PO BID 03/21/21 12/17/21 History Cetirizine HCl [Zyrtec] 5 mg PO DAILY PRN 03/21/21 12/17/21 History Escitalopram [Lexapro] 10 mg PO DAILY 03/21/21 12/17/21 History Montelukast [Singulair] 10 mg PO HS 03/21/21 12/17/21 History Potassium Chloride ER [K-Dur 10] 10 meq PO DAILY 03/21/21 12/17/21 History carvediloL [Coreg] 3.125 mg PO BID@0800,199903/21/21 12/17/21 History sitaGLIPtin [Januvia] 50 mg PO DAILY@0800 03/21/21 12/17/21 History Pregabalin [Lyrica] 150 mg PO BID #6 cap 03/25/21 12/17/21 Rx Spironolactone 12.5 mg PO DAILY #0 03/25/21 12/17/21 Rx Carbidopa/Levodopa [Carbidopa-Levo 1 tab PO QID@05,12,16,20 09/13/21 12/17/21 History ER 25-100 Tab] Ferrous Sulfate [Feosol] 325 mg PO HS 09/13/21 12/17/21 History Furosemide [Lasix] 40 mg PO DAILY@0800 09/13/21 12/17/21 History HYDROcodone/APAP 10-325MG [Kunia 1 tab PO Q6H PRN 09/13/21 12/17/21 History 10-325] Multivitamins, Thera [Multivitamin 1 tab PO DAILY 09/13/21 12/17/21 History (formulary)] Omeprazole 20 mg PO DAILY 09/13/21 12/17/21 History Tamsulosin HCl [Flomax] 0.4 mg PO PC-SUPPER 09/13/21 12/17/21 History amLODIPine [Norvasc] 10 mg PO DAILY 09/13/21 12/17/21 History Acetaminophen [Tylenol] 650 mg PO Q6H PRN 12/17/21 12/17/21 History Allergies Allergy/AdvReac Type Severity Reaction Status Date / Time albuterol Allergy Rash/Hives Verified 12/17/21 17:03 carbamazepine [From Tegretol] Allergy Rash/Hives Verified 12/17/21 17:03 carisoprodol [From Soma] Allergy Rash/Hives Verified 12/17/21 17:03 ciprofloxacin [From Cipro] Allergy Rash/Hives Verified 12/17/21 17:03 ciprofloxacin HCl Allergy Rash/Hives Verified 12/17/21 17:03 [From Cipro] rice Allergy Unknown Verified 12/17/21 17:03 Sulfa (Sulfonamide Allergy Rash/Hives Verified 12/17/21 17:03 Antibiotics) sulfamethoxazole Allergy Unknown Verified 12/17/21 17:03 [From Bactrim] trimethoprim [From Bactrim] Allergy Unknown Verified 12/17/21 17:03 doxycycline AdvReac Nausea & Verified 12/17/21 17:03 Vomiting egg AdvReac Nausea & Verified 12/17/21 17:03 Vomiting & Diarrhea artificial sweetner in pop Allergy Rash/Hives Uncoded 12/17/21 17:03 Physical Exam Vitals: Vital Signs Temp Pulse Pulse Resp BP BP Pulse Ox 12/18/21 15:00 98.2 F 88 16 119/74 95 12/18/21 09:20 91 18 12/18/21 08:04 93 12/18/21 07:51 91 12/18/21 07:00 97.8 F 91 18 139/70 98 12/18/21 02:46 98.0 F 98 17 124/84 97 12/17/21 20:58 98.5 F 94 16 126/74 96 12/17/21 20:11 90 20 132/86 99 12/17/21 20:06 80 12/17/21 19:59 81 Intake and Output 12/18/21 12/18/21 12/18/21 06:59 14:59 22:59 Intake Total 168 Output Total 600 800 Balance -600 -632 Intake: Intake, IV Titration 50 Amount cefTRIAXone 1 gm In 50 Sodium Chloride 0.9% 50 ml @ 100 mls/hr IVPB Q24HR [facility] Rx#:[id number] Oral 118 Output: Urine 600 800 Other: Voiding Method External Catheter Weight 117 kg GENERAL DESCRIPTION: An elderly female lying in bed, no distress. No tachypnea or accessory muscle of respiration use. HEENT: Shows Pallor , no scleral icterus. Oral mucous membrane is dry. No pharyngeal erythema or thrush NECK: Trachea central, no thyromegaly. LUNGS: Unlabored breathing. Clear to auscultation anteriorly. No wheeze or crackle. HEART: S1, S2, regular rate and rhythm. No loud murmur ABDOMEN: Soft, no tenderness , guarding or rigidity, no organomegaly EXTREMITIES: No edema of feet. SKIN: No rash, no masses palpable. NEUROLOGICAL: The patient is awake, alert, oriented x2, mood and affect normal. Results CBC & Chem 7: 12/18/21 06:48 12/18/21 06:48 Labs: Abnormal Lab Results - Last 24 Hours (Table) 12/17/21 12/17/21 12/17/21 Range/Units 15:58 16:58 19:32 MCHC (32.0-37.0) g/dL Lymphocytes # (0.90-5.00) X 10*3/uL Monocytes # (0.20-1.00) X 10*3/uL Est GFR (CKD-EPI)AfAm (60.0-200.0) Est GFR (CKD-EPI)NonAf (60.0-200.0) POC Glucose (mg/dL) 164 H (75-99) mg/dL Urine Appearance Turbid H (Clear) Urine Protein 1+ H (Negative) Urine Blood Small H (Negative) Urine Nitrite Positive H (Negative) Ur Leukocyte Esterase Large H (Negative) Urine RBC 34 H (0-5) /hpf Urine WBC >182 H (0-5) /hpf Urine WBC Clumps Many H (None) /hpf Urine Bacteria Many H (None) /hpf Urine Opiates Screen Detected H (NotDetected) 12/18/21 12/18/21 12/18/21 Range/Units 06:48 06:48 07:43 MCHC 31.6 L (32.0-37.0) g/dL Lymphocytes # 0.76 L (0.90-5.00) X 10*3/uL Monocytes # 1.32 H (0.20-1.00) X 10*3/uL Est GFR (CKD-EPI)AfAm 44.8 L (60.0-200.0) Est GFR (CKD-EPI)NonAf 38.6 L (60.0-200.0) POC Glucose (mg/dL) 101 H (75-99) mg/dL Urine Appearance (Clear) Urine Protein (Negative) Urine Blood (Negative) Urine Nitrite (Negative) Ur Leukocyte Esterase (Negative) Urine RBC (0-5) /hpf Urine WBC (0-5) /hpf Urine WBC Clumps (None) /hpf Urine Bacteria (None) /hpf Urine Opiates Screen (NotDetected) 12/18/21 Range/Units 12:22 MCHC (32.0-37.0) g/dL Lymphocytes # (0.90-5.00) X 10*3/uL Monocytes # (0.20-1.00) X 10*3/uL Est GFR (CKD-EPI)AfAm (60.0-200.0) Est GFR (CKD-EPI)NonAf (60.0-200.0) POC Glucose (mg/dL) 133 H (75-99) mg/dL Urine Appearance (Clear) Urine Protein (Negative) Urine Blood (Negative) Urine Nitrite (Negative) Ur Leukocyte Esterase (Negative) Urine RBC (0-5) /hpf Urine WBC (0-5) /hpf Urine WBC Clumps (None) /hpf Urine Bacteria (None) /hpf Urine Opiates Screen (NotDetected) Microbiology - Last 24 Hours (Table) 12/17/21 13:30 Blood Culture - Final Blood 12/17/21 13:30 Blood Culture Gram Stain - Preliminary Blood Blood Culture - Preliminary Streptococcus species 12/17/21 16:58 Urine Culture - Preliminary Urine,Voided Assessment and Plan (1) UTI (urinary tract infection) Current Visit: Yes Status: Acute Code(s): N39.0 - URINARY TRACT INFECTION, SITE NOT SPECIFIED SNOMED Code(s): 57524745 Plan: 1patient presented to hospital with mental status changes likely secondary to urinary tract infection with urine showing gram-negative likely from enteric gram-negative pathogen. 2patient with a positive blood culture with Streptococcus species possible skin contaminant we will wait for the final ID before ordering further work-up however blood cultures will be repeated document clearance of bacteremia 3patient to continue with the Rocephin 2 g daily while waiting for the culture to finalize. 4gentle IV fluid We will follow on clinical condition and cultures to further adjust medication if needed Thank you for this consultation will follow this patient along with you Time with Patient: Greater than 30
[2021-12-19] MEDS: CARBIDOPA-LEVODOPA ER 25-100MG 1 EACH TABLET.ER PO SCH ×5 (00:30→20:54)
[2021-12-19 07:11] LABS: Glucose,Whole Blood 141 mg/dL (75-99)
[2021-12-19] MEDS: ALBUTEROL NEBULIZED 2.5 MG/3 ML INHALATION SCH ×2 (08:19→20:33)
[2021-12-19 09:10] LABS: Basophils # (A) 0.02 X 10*3/uL (0.00-0.10); Basophils % (A) 0.2 %; HCT 37.5 % (37.2-46.3); HGB 12.1 g/dL (12.0-15.0); Immature Grans, Automated 0.4 %; Lymphocytes # (A) 0.49 X 10*3/uL (0.90-5.00); Lymphocytes % (A) 4.7 %; MCH 28.7 pg (27.0-32.0); MCHC 32.3 g/dL (32.0-37.0); MCV 88.9 fL (80.0-97.0); Mean Platelet Volume 11.1 fL (9.5-12.2); Monocytes % (A) 12.6 %; NRBC Per 100 WBC 0 /100 WBCS (0.0-0.0); Neutrophils % (A) 81.1 %; Platelet Count 182 X 10*3/uL (140-440); RBC 4.22 X 10*6/uL (4.10-5.20); RDW 13.1 % (11.5-14.5); WBC 10.35 X 10*3/uL (4.50-10.00)
[2021-12-19 09:42] LABS: African American GFR (CKD) 48.4 (60.0-200.0); Anion Gap 10.9 mmol/L (10.00-18.00); BUN/Creat Ratio 20.5 Ratio (12.00-20.00); Blood Urea Nitrogen 24.6 mg/dL (9.0-27.0); C Reactive Protein 7.7 mg/dL (0.00-0.80); Calcium 8.6 mg/dL (8.7-10.3); Carbon Dioxide 24.1 mmol/L (20.0-27.5); Non-African American GFR(CKD) 41.8 (60.0-200.0); Potassium 3.9 mmol/L (3.5-5.5)
[2021-12-19] MEDS: INSULIN ASPART (NovoLOG) 100 UNIT/ML VIAL SQ SCH ×4 (10:03→20:55)
[2021-12-19] MEDS: SPIRONOLACTONE 25 MG TAB PO SCH (10:05)
[2021-12-19] MEDS: APIXABAN 2.5 MG TABLET PO SCH ×2 (10:05→20:54)
[2021-12-19] MEDS: PANTOPRAZOLE 40 MG TABLET PO SCH (10:06)
[2021-12-19] MEDS: amLODIPine 10 MG TAB PO SCH (10:06)
[2021-12-19] MEDS: ISOSORBIDE MONONITRATE ER 60 MG TAB.ER.24H PO SCH (10:06)
[2021-12-19] MEDS: FUROSEMIDE 40 MG TAB PO SCH (10:06)
[2021-12-19] MEDS: carvediloL 3.125 MG TAB PO SCH ×2 (10:07→20:54)
[2021-12-19] MEDS: MULTIVITAMINS, THERA 1 EACH TAB PO SCH (10:07)
[2021-12-19] MEDS: ASPIRIN 81 MG PO SCH (10:07)
[2021-12-19] MEDS: ESCITALOPRAM 10 MG TAB PO SCH (10:08)
[2021-12-19 11:05] LABS: Erythrocyte Sedimentation Rate 63 mm/Hr (0-30)
[2021-12-19 12:10] LABS: Glucose,Whole Blood 154 mg/dL (75-99)
[2021-12-19 17:00] LABS: Glucose,Whole Blood 241 mg/dL (75-99)
--- NOTE | 2021-12-19 18:13 | P.PN ---
Progress Note - Text Progress Note Date: 12/19/21 Presenting complaint: Tired Hospital course: 80-year-old patient says history includes severe persistent asthma, diabetes, hypertension, hyperlipidemia, varicose veins,. COVID-19 in September 2020. Intracranial hemorrhage status post evacuation in October 18. Presented with altered mental status. Patient presented being confused not able to eat by herself today presentation. The prior week she had been incoherent. Patient was admitted with bacteremia and UTI. Started on IV ceftriaxone. Patient was admitted under sound physicians with observation. December 19: Patient made inpatient today. Eating about 25%. Laying in bed. Tired. Able to answer only simple questions. She knows this in the hospital. Things at this 2020. Active Medications Acetaminophen (Acetaminophen Tab 325 Mg Tab) 650 mg PO Q6HR PRN PRN Reason: Mild Pain or Fever > 100.5 Albuterol Sulfate (Albuterol Nebulized 2.5 Mg/3 Ml) 2.5 mg INHALATION RT- BID@ [facility] Last Admin: 12/19/21 08:19 Dose: 2.5 mg Documented by: Amlodipine Besylate (Amlodipine 10 Mg Tab) 10 mg PO DAILY [facility] Last Admin: 12/19/21 10:06 Dose: 10 mg Documented by: Apixaban (Apixaban 2.5 Mg Tablet) 2.5 mg PO BID [facility]; Protocol Last Admin: 12/19/21 10:05 Dose: 2.5 mg Documented by: Aspirin (Aspirin 81 Mg) 81 mg PO DAILY [facility] Last Admin: 12/19/21 10:07 Dose: 81 mg Documented by: Atorvastatin Calcium (Atorvastatin 10 Mg Tab) 10 mg PO [facility] Last Admin: 12/18/21 20:29 Dose: 10 mg Documented by: Carbidopa/Levodopa (Carbidopa-Levodopa Er 25-100mg 1 Each Tablet.Er) 1 each PO QID@05,12,16,20 [facility] Last Admin: 12/19/21 16:49 Dose: 1 each Documented by: Carvedilol (Carvedilol 3.125 Mg Tab) 3.125 mg PO BID@ [facility] Last Admin: 12/19/21 10:07 Dose: 3.125 mg Documented by: Escitalopram Oxalate (Escitalopram 10 Mg Tab) 10 mg PO DAILY [facility] Last Admin: 12/19/21 10:08 Dose: 10 mg Documented by: Ferrous Sulfate (Ferrous Sulfate 325 Mg Tab) 325 mg PO [facility] Last Admin: 12/18/21 20:30 Dose: 325 mg Documented by: Furosemide (Furosemide 40 Mg Tab) 40 mg PO DAILY@0800 [facility] Last Admin: 12/19/21 10:06 Dose: 40 mg Documented by: Ceftriaxone Sodium 2 gm/ (Sodium Chloride) 50 mls @ 100 mls/hr IVPB Q24HR [facility]; Protocol Last Admin: 12/19/21 10:04 Dose: 100 mls/hr Documented by: Insulin Aspart (Insulin Aspart (Novolog) 100 Unit/Ml Vial) 0 unit SQ ACHS [facility]; Protocol Last Admin: 12/19/21 17:04 Dose: 5 unit Documented by: Isosorbide Mononitrate (Isosorbide Mononitrate Er 60 Mg Tab.Er.24h) 60 mg PO DAILY [facility] Last Admin: 12/19/21 10:06 Dose: 60 mg Documented by: Loratadine (Loratadine 10 Mg Tab) 10 mg PO DAILY PRN PRN Reason: Allergy Symptoms Montelukast Sodium (Montelukast 10 Mg Tab) 10 mg PO [facility] Last Admin: 12/18/21 20:29 Dose: 10 mg Documented by: Multivitamins (Multivitamins, Thera 1 Each Tab) 1 each PO DAILY [facility] Last Admin: 12/19/21 10:07 Dose: 1 each Documented by: Naloxone HCl (Naloxone 0.4 Mg/Ml 1 Ml Vial) 0.2 mg IV Q2M PRN PRN Reason: Opioid Reversal Ondansetron HCl (Ondansetron 4 Mg/2 Ml Vial) 4 mg IVP Q8HR PRN PRN Reason: Nausea And Vomiting Pantoprazole Sodium (Pantoprazole 40 Mg Tablet) 40 mg PO AC-BRKFST [facility] Last Admin: 12/19/21 10:06 Dose: 40 mg Documented by: Spironolactone (Spironolactone 25 Mg Tab) 12.5 mg PO DAILY [facility] Last Admin: 12/19/21 10:05 Dose: 12.5 mg Documented by: Tamsulosin HCl (Tamsulosin 0.4 Mg Cap.Er.24h) 0.4 mg PO PC-SUPPER [facility] Last Admin: 12/18/21 18:44 Dose: 0.4 mg Documented by: On examination: VITAL SIGNS: 98, 94, 17, 113/70, 96% on 2 L GENERAL APPEARANCE: Laying in bed, awake, tired. BMI 41.8. HEENT: Normal external appearance of nose and ear. Oral cavity normal EYES: Pupils equal. Conjunctiva normal. NECK: JVD not raised. Mass not palpable. RESPIRATORY: Respiratory effort normal. Lungs clear to auscultation. CARDIOVASCULAR: First and second sounds normal. No edema. ABDOMEN: Soft. Liver and spleen not palpable. No tenderness. No mass palpable. PSYCHIATRY: Knows her name. Thinks it is 2019. Was that she is in the hospital. MUSCULOSKELETAL: Evidence of OA NEUROLOGIC: Tremors. INVESTIGATIONS, reviewed in the clinical context: White count 10.3 hemoglobin 12.1 potassium 3.9 creatinine 1.2 pro-calcitonin 0.11 Urine culture: Gram-negative bacilli Blood culture: Alpha hemolytic streptococcus and Staphylococcus epidermidis Assessment and plan: -Acute metabolic encephalopathy delirium from sepsis slow to respond -Sepsis with blood cultures positive for alpha and beta Streptococcus and Staphylococcus epidermidis. From UTI: Sodium respond IV ceftriaxone -Acute UTI with cystitis causing sepsis IV ceftriaxone -Morbid obesity BMI 41.8 -Idiopathic Parkinson's disease Sinemet ER 25/100 one tablet 4 times a day -Peripheral neuropathy Lyrica 150 mg twice a day -Diabetes mellitus type 2 Follow Accu-Cheks -Hyperlipidemia Lipitor 10 mg daily at bedtime -Bladder dysfunction with incontinence Flomax 0.4 mg daily -Depression Lexapro 10 mg daily -Essential hypertension Amlodipine 10 mg a day Coreg 3.125 mg twice a day -GERD PPI Patient to continue with IV ceftriaxone. Urine culture pending. DC Lasix as patient unable to eat adequately.
[2021-12-19 20:40] LABS: Glucose,Whole Blood 133 mg/dL (75-99)
[2021-12-19] MEDS: FERROUS SULFATE 325 MG TAB PO SCH (20:54)
[2021-12-19] MEDS: ATORVASTATIN 10 MG TAB PO SCH (20:54)
[2021-12-19] MEDS: TAMSULOSIN 0.4 MG CAP.ER.24H PO SCH (20:54)
[2021-12-19] MEDS: MONTELUKAST 10 MG TAB PO SCH (20:54)
--- NOTE | 2021-12-19 22:49 | P.PN ---
Subjective Progress Note Date: 12/19/21 Principal diagnosis: Urinary tract infection and bacteremia Patient is 81 year old female presenting to the hospital for evaluation of weakness and mental status changes and this patient has been diagnosed with a urinary tract infection and also have a positive blood culture. On today's inhalation that is 12/19/2021, the patient denies any fever or chills, the patient is more awake and alert she is breathing comfortably on room air denies any chest pain or cough no abdominal pain no diarrhea Objective - Vital Signs Vital signs: Vital Signs Temp 98.0 F 12/19/21 07:00 Pulse 88 12/19/21 08:30 Resp 17 12/19/21 07:00 BP 113/70 12/19/21 07:00 Pulse Ox 96 12/19/21 07:00 Intake & Output 12/18/21 12/19/21 12/19/21 18:59 06:59 18:59 Intake Total 628 118 Output Total 800 1300 Balance -172 -1300 118 Weight 117.5 kg Intake: Intake, IV Titration 50 Amount cefTRIAXone 1 gm In 50 Sodium Chloride 0.9% 50 ml @ 100 mls/hr IVPB Q24HR [facility] Rx#:[id number] Oral 578 118 Output: Urine 800 1300 Other: Voiding Method External Catheter External Catheter External Catheter # Bowel Movements 0 - Exam GENERAL DESCRIPTION: An elderly female lying in bed in no distress RESPIRATORY SYSTEM: Unlabored breathing , decreased breath sounds at bases HEART: S1 S2 regular rate and rhythm , ABDOMEN: Soft , no tenderness EXTREMITIES: No edema feet - Labs CBC & Chem 7: 12/19/21 06:30 12/19/21 06:30 Labs: Abnormal Lab Results - Last 24 Hours (Table) 12/18/21 12/18/21 12/18/21 Range/Units 12:22 16:58 20:03 WBC (4.50-10.00) X 10*3/uL Neutrophils # (1.80-7.70) X 10*3/uL Lymphocytes # (0.90-5.00) X 10*3/uL Monocytes # (0.20-1.00) X 10*3/uL Sodium (135-145) mmol/L Est GFR (CKD-EPI)AfAm (60.0-200.0) Est GFR (CKD-EPI)NonAf (60.0-200.0) BUN/Creatinine Ratio (12.00-20.00) Ratio Glucose (70-110) mg/dL POC Glucose (mg/dL) 133 H 138 H 195 H (75-99) mg/dL Calcium (8.7-10.3) mg/dL C-Reactive Protein (0.00-0.80) mg/dL 12/19/21 12/19/21 12/19/21 Range/Units 06:30 06:30 07:01 WBC 10.35 H (4.50-10.00) X 10*3/uL Neutrophils # 8.40 H (1.80-7.70) X 10*3/uL Lymphocytes # 0.49 L (0.90-5.00) X 10*3/uL Monocytes # 1.30 H (0.20-1.00) X 10*3/uL Sodium 133 L (135-145) mmol/L Est GFR (CKD-EPI)AfAm 48.4 L (60.0-200.0) Est GFR (CKD-EPI)NonAf 41.8 L (60.0-200.0) BUN/Creatinine Ratio 20.50 H (12.00-20.00) Ratio Glucose 141 H (70-110) mg/dL POC Glucose (mg/dL) 141 H (75-99) mg/dL Calcium 8.6 L (8.7-10.3) mg/dL C-Reactive Protein 7.70 H (0.00-0.80) mg/dL Microbiology - Last 24 Hours (Table) 12/17/21 13:30 Blood Culture Gram Stain - Preliminary Blood Blood Culture - Preliminary Streptococcus species Staphylococcus epidermidis 12/17/21 16:58 Urine Culture - Preliminary Urine,Voided Gram Neg Bacilli 12/17/21 19:26 Blood Culture - Preliminary Blood No Growth after 24 hours 12/17/21 13:30 Blood Culture - Final Blood Assessment and Plan (1) UTI (urinary tract infection) Current Visit: Yes Status: Acute Code(s): N39.0 - URINARY TRACT INFECTION, SITE NOT SPECIFIED SNOMED Code(s): 15736939 Plan: 1patient presented to hospital with mental status changes likely secondary to urinary tract infection with urine showing gram-negative likely from enteric gram-negative pathogen. 2patient with a positive blood culture with Streptococcus species possible skin contaminant and the blood culture has been negative 3patient to continue with the Rocephin 2 g daily with the urine showing E. coli that is sensitive pathogen. 4gentle IV fluid Time with Patient: Less than 30
[2021-12-20] MEDS: CARBIDOPA-LEVODOPA ER 25-100MG 1 EACH TABLET.ER PO SCH ×4 (05:38→20:43)
[2021-12-20 07:08] LABS: Glucose,Whole Blood 114 mg/dL (75-99)
[2021-12-20] MEDS: ALBUTEROL NEBULIZED 2.5 MG/3 ML INHALATION SCH ×2 (08:27→20:01)
[2021-12-20] MEDS: INSULIN ASPART (NovoLOG) 100 UNIT/ML VIAL SQ SCH ×4 (08:53→20:43)
[2021-12-20] MEDS: MULTIVITAMINS, THERA 1 EACH TAB PO SCH (11:27)
[2021-12-20] MEDS: APIXABAN 2.5 MG TABLET PO SCH ×2 (11:28→20:43)
[2021-12-20] MEDS: ASPIRIN 81 MG PO SCH (11:28)
[2021-12-20] MEDS: ESCITALOPRAM 10 MG TAB PO SCH (11:28)
[2021-12-20] MEDS: PANTOPRAZOLE 40 MG TABLET PO SCH (11:28)
[2021-12-20] MEDS: carvediloL 3.125 MG TAB PO SCH ×2 (11:48→20:43)
[2021-12-20] MEDS: ISOSORBIDE MONONITRATE ER 60 MG TAB.ER.24H PO SCH (11:49)
[2021-12-20] MEDS: amLODIPine 10 MG TAB PO SCH (11:49)
[2021-12-20 11:53] LABS: Glucose,Whole Blood 126 mg/dL (75-99)
[2021-12-20] MEDS: SPIRONOLACTONE 25 MG TAB PO SCH (11:53)
--- NOTE | 2021-12-20 16:12 | P.PN ---
Progress Note - Text Progress Note Date: 12/20/21 Presenting complaint: Tired Hospital course: 80-year-old patient says history includes severe persistent asthma, diabetes, hypertension, hyperlipidemia, varicose veins,. COVID-19 in September 2020. Intracranial hemorrhage status post evacuation in October 18. Presented with altered mental status. Patient presented being confused not able to eat by herself today presentation. The prior week she had been incoherent. Patient was admitted with bacteremia and UTI. Started on IV ceftriaxone. Patient was admitted under sound physicians with observation. December 19: Patient made inpatient today. Eating about 25%. Laying in bed. Tired. Able to answer only simple questions. She knows this in the hospital. Thinks it is 2019. December 20: Tired. Oral intake low. Eating about 25%. On IV ceftriaxone. Repeat blood cultures from the coming back to be negative. Active Medications Acetaminophen (Acetaminophen Tab 325 Mg Tab) 650 mg PO Q6HR PRN PRN Reason: Mild Pain or Fever > 100.5 Last Admin: 12/19/21 20:54 Dose: 650 mg Documented by: Albuterol Sulfate (Albuterol Nebulized 2.5 Mg/3 Ml) 2.5 mg INHALATION RT- BID@ [facility] Last Admin: 12/20/21 08:27 Dose: 2.5 mg Documented by: Amlodipine Besylate (Amlodipine 10 Mg Tab) 10 mg PO DAILY [facility] Last Admin: 12/20/21 11:49 Dose: Not Given Documented by: Apixaban (Apixaban 2.5 Mg Tablet) 2.5 mg PO BID [facility]; Protocol Last Admin: 12/20/21 11:28 Dose: 2.5 mg Documented by: Aspirin (Aspirin 81 Mg) 81 mg PO DAILY [facility] Last Admin: 12/20/21 11:28 Dose: 81 mg Documented by: Atorvastatin Calcium (Atorvastatin 10 Mg Tab) 10 mg PO HS [facility] Last Admin: 12/19/21 20:54 Dose: 10 mg Documented by: Carbidopa/Levodopa (Carbidopa-Levodopa Er 25-100mg 1 Each Tablet.Er) 1 each PO QID@05,12,16,20 [facility] Last Admin: 12/20/21 11:27 Dose: 1 each Documented by: Carvedilol (Carvedilol 3.125 Mg Tab) 3.125 mg PO BID@799,1999 [facility] Last Admin: 12/20/21 11:48 Dose: 3.125 mg Documented by: Escitalopram Oxalate (Escitalopram 10 Mg Tab) 10 mg PO DAILY [facility] Last Admin: 12/20/21 11:28 Dose: 10 mg Documented by: Ferrous Sulfate (Ferrous Sulfate 325 Mg Tab) 325 mg PO [facility] Last Admin: 12/19/21 20:54 Dose: 325 mg Documented by: Ceftriaxone Sodium 2 gm/ (Sodium Chloride) 50 mls @ 100 mls/hr IVPB Q24HR [facility]; Protocol Last Admin: 12/20/21 11:30 Dose: 100 mls/hr Documented by: Insulin Aspart (Insulin Aspart (Novolog) 100 Unit/Ml Vial) 0 unit SQ ACHS [facility]; Protocol Last Admin: 12/20/21 11:51 Dose: Not Given Documented by: Isosorbide Mononitrate (Isosorbide Mononitrate Er 60 Mg Tab.Er.24h) 60 mg PO DAILY [facility] Last Admin: 12/20/21 11:49 Dose: 60 mg Documented by: Loratadine (Loratadine 10 Mg Tab) 10 mg PO DAILY PRN PRN Reason: Allergy Symptoms Montelukast Sodium (Montelukast 10 Mg Tab) 10 mg PO [facility] Last Admin: 12/19/21 20:54 Dose: 10 mg Documented by: Multivitamins (Multivitamins, Thera 1 Each Tab) 1 each PO DAILY [facility] Last Admin: 12/20/21 11:27 Dose: 1 each Documented by: Naloxone HCl (Naloxone 0.4 Mg/Ml 1 Ml Vial) 0.2 mg IV Q2M PRN PRN Reason: Opioid Reversal Ondansetron HCl (Ondansetron 4 Mg/2 Ml Vial) 4 mg IVP Q8HR PRN PRN Reason: Nausea And Vomiting Pantoprazole Sodium (Pantoprazole 40 Mg Tablet) 40 mg PO AC-BRKFST [facility] Last Admin: 12/20/21 11:28 Dose: 40 mg Documented by: Spironolactone (Spironolactone 25 Mg Tab) 12.5 mg PO DAILY [facility] Last Admin: 12/20/21 11:53 Dose: 12.5 mg Documented by: Tamsulosin HCl (Tamsulosin 0.4 Mg Cap.Er.24h) 0.4 mg PO PC-SUPPER [facility] Last Admin: 12/19/21 20:54 Dose: 0.4 mg Documented by: On examination: VITAL SIGNS: 97.8, 87, 16, 111/63, 94% on 2 L GENERAL APPEARANCE: Laying in bed, awake, tired. HEENT: Normal external appearance of nose and ear. Oral cavity normal EYES: Pupils equal. Conjunctiva normal. NECK: JVD not raised. Mass not palpable. RESPIRATORY: Respiratory effort normal. Lungs clear to auscultation. CARDIOVASCULAR: First and second sounds normal. No edema. ABDOMEN: Soft. Liver and spleen not palpable. No tenderness. No mass palpable. PSYCHIATRY: Knows her name. Thinks it is 2019. Was that she is in the hospital. MUSCULOSKELETAL: Evidence of OA NEUROLOGIC: Tremors. INVESTIGATIONS, reviewed in the clinical context: White count 10.3 hemoglobin 12.1 potassium 3.9 creatinine 1.2 pro-calcitonin 0.11 Urine culture: E. coli Blood culture: Alpha hemolytic streptococcus and Staphylococcus epidermidis Assessment and plan: -Acute metabolic encephalopathy delirium from sepsis: Better - blood cultures positive for alpha and beta Streptococcus and Staphylococcus epidermidis. From UTI: Possibly contaminant per ID.. IV ceftriaxone -Acute UTI with cystitis from E. coli causing sepsis IV ceftriaxone -Morbid obesity BMI 41.8 -Idiopathic Parkinson's disease Sinemet ER 25/100 one tablet 4 times a day -Peripheral neuropathy Lyrica 150 mg twice a day -Diabetes mellitus type 2 Follow Accu-Cheks -Hyperlipidemia Lipitor 10 mg daily at bedtime -Bladder dysfunction with incontinence Flomax 0.4 mg daily -Depression Lexapro 10 mg daily -Essential hypertension Amlodipine 10 mg a day Coreg 3.125 mg twice a day -GERD PPI Discussed with Dr. Duarte from ID. Blood cultures likely contaminant. Patient to be discharged on Ceftin. We will do so tomorrow. Other medications to continue.
[2021-12-20 17:01] LABS: Glucose,Whole Blood 204 mg/dL (75-99)
[2021-12-20] MEDS: TAMSULOSIN 0.4 MG CAP.ER.24H PO SCH (18:54)
[2021-12-20 20:41] LABS: Glucose,Whole Blood 148 mg/dL (75-99)
[2021-12-20] MEDS: MONTELUKAST 10 MG TAB PO SCH (20:43)
[2021-12-20] MEDS: FERROUS SULFATE 325 MG TAB PO SCH (20:43)
[2021-12-20] MEDS: ATORVASTATIN 10 MG TAB PO SCH (20:43)
[2021-12-20 21:56] LABS: Glucose,Whole Blood 130 mg/dL (75-99)
--- NOTE | 2021-12-20 22:48 | P.PN ---
Subjective Progress Note Date: 12/20/21 Principal diagnosis: Urinary tract infection and bacteremia Patient is 81 year old female presenting to the hospital for evaluation of weakness and mental status changes and this patient has been diagnosed with a urinary tract infection and also have a positive blood culture. On today's inhalation that is 12/20/2021, the patient remains to be afebrile, the patient is breathing comfortably on room air , the patient denies any chest pain or cough no abdominal pain no diarrhea Objective - Vital Signs Vital signs: Vital Signs Temp 98.2 F 12/20/21 07:00 Pulse 76 12/20/21 11:24 Resp 18 12/20/21 07:00 BP 98/72 12/20/21 11:24 Pulse Ox 96 12/20/21 07:00 Intake & Output 12/19/21 12/20/21 12/20/21 18:59 06:59 18:59 Intake Total 354 Output Total 100 1400 Balance 254 -1400 Weight 109 kg Intake: Oral 354 Output: Urine 100 1400 Other: Voiding Method External Catheter External Catheter External Catheter # Voids 2 # Bowel Movements 1 1 - Exam GENERAL DESCRIPTION: An elderly female lying in bed in no distress RESPIRATORY SYSTEM: Unlabored breathing , decreased breath sounds at bases HEART: S1 S2 regular rate and rhythm , ABDOMEN: Soft , no tenderness EXTREMITIES: No edema feet - Labs CBC & Chem 7: 12/19/21 06:30 12/19/21 06:30 Labs: Abnormal Lab Results - Last 24 Hours (Table) 12/19/21 12/19/21 12/19/21 Range/Units 06:30 12:08 16:57 POC Glucose (mg/dL) 154 H 241 H (75-99) mg/dL Procalcitonin 0.11 H (0.02-0.09) ng/mL 12/19/21 12/20/21 Range/Units 20:39 07:06 POC Glucose (mg/dL) 133 H 114 H (75-99) mg/dL Procalcitonin (0.02-0.09) ng/mL Microbiology - Last 24 Hours (Table) 12/17/21 19:26 Blood Culture - Preliminary Blood No Growth after 48 hours 12/17/21 16:58 Urine Culture - Final Urine,Voided Escherichia coli 12/18/21 17:30 Blood Culture - Preliminary Blood No Growth after 24 hours 12/17/21 13:30 Blood Culture Gram Stain - Preliminary Blood Blood Culture - Preliminary Alpha Hemolytic Streptococcus Staphylococcus epidermidis Assessment and Plan (1) UTI (urinary tract infection) Current Visit: Yes Status: Acute Code(s): N39.0 - URINARY TRACT INFECTION, SITE NOT SPECIFIED SNOMED Code(s): 94154938 Plan: 1patient presented to hospital with mental status changes likely secondary to urinary tract infection with urine finalized as E. coli which is a sensitive pathogen. 2patient with a positive blood culture with Streptococcus species possible skin contaminant and the repeat blood culture has been negative 3patient to continue with the Rocephin 2 g daily and finishing therapy with a short course of oral Ceftin, discussed with the admitting physician Time with Patient: Less than 30
[2021-12-21] MEDS: CARBIDOPA-LEVODOPA ER 25-100MG 1 EACH TABLET.ER PO SCH ×2 (05:42→13:32)
[2021-12-21 07:28] LABS: Glucose,Whole Blood 126 mg/dL (75-99)
[2021-12-21 08:12] VITALS: BP 156/79; PULSE 96; RESP 18; TEMP 97.9
[2021-12-21] MEDS: ALBUTEROL NEBULIZED 2.5 MG/3 ML INHALATION SCH (08:46)
[2021-12-21] MEDS: SPIRONOLACTONE 25 MG TAB PO SCH (10:22)
[2021-12-21] MEDS: PANTOPRAZOLE 40 MG TABLET PO SCH (10:22)
[2021-12-21] MEDS: MULTIVITAMINS, THERA 1 EACH TAB PO SCH (10:22)
[2021-12-21] MEDS: ASPIRIN 81 MG PO SCH (10:22)
[2021-12-21] MEDS: APIXABAN 2.5 MG TABLET PO SCH (10:22)
[2021-12-21] MEDS: INSULIN ASPART (NovoLOG) 100 UNIT/ML VIAL SQ SCH ×2 (10:22→13:32)
[2021-12-21] MEDS: ESCITALOPRAM 10 MG TAB PO SCH (10:22)
[2021-12-21] MEDS: carvediloL 3.125 MG TAB PO SCH (10:22)
[2021-12-21] MEDS: amLODIPine 10 MG TAB PO SCH (10:23)
[2021-12-21] MEDS: ISOSORBIDE MONONITRATE ER 60 MG TAB.ER.24H PO SCH (10:23)
[2021-12-21 12:09] LABS: Glucose,Whole Blood 160 mg/dL (75-99)
--- NOTE | 2021-12-21 12:34 | P.DS ---
Providers Date of admission: 12/18/21 11:47 Expected date of discharge: 12/21/21 Attending physician: Jeffry Caban Consults: 12/18/21 15:22 Consult Physician Routine Consulting Provider: Janeen Pa Consult Reason/Comments: bacteremia Do you want consulting provider notified?: Yes Primary care physician: [facility] Course: Presenting complaint: Tired Hospital course: 80-year-old patient says history includes severe persistent asthma, diabetes, hypertension, hyperlipidemia, varicose veins,. COVID-19 in September 2020. Intracranial hemorrhage status post evacuation in October 18. Presented with altered mental status. Patient presented being confused not able to eat by herself today presentation. The prior week she had been incoherent. Patient was admitted with bacteremia and UTI. Started on IV ceftriaxone. Patient was admitted under sound physicians with observation. December 19: Patient made inpatient today. Eating about 25%. Laying in bed. Tire d. Able to answer only simple questions. She knows this in the hospital. Thinks it is 2019. December 20: Tired. Oral intake low. Eating about 25%. On IV ceftriaxone. Repeat blood cultures from the coming back to be negative. December 21: Per ID bacteremia felt to be contaminant. IV ceftriaxone discontinued. Complete 5 more days of Ceftin for the UTI. go back to rehab. Tolerating diet. Comfortable. Discussion and discharge planning more than 35 minutes On examination: VITAL SIGNS: 97.9, 96, 18, 156/79, 98% on liters GENERAL APPEARANCE: Propped up in bed, awake, HEENT: Normal external appearance of nose and ear. Oral cavity normal EYES: Pupils equal. Conjunctiva normal. NECK: JVD not raised. Mass not palpable. RESPIRATORY: Respiratory effort normal. Lungs clear to auscultation. CARDIOVASCULAR: First and second sounds normal. No edema. ABDOMEN: Soft. Liver and spleen not palpable. No tenderness. No mass palpable. PSYCHIATRY: Answering simple questions MUSCULOSKELETAL: Evidence of OA NEUROLOGIC: Tremors. INVESTIGATIONS, reviewed in the clinical context: White count 10.3 hemoglobin 12.1 potassium 3.9 creatinine 1.2 pro-calcitonin 0.11 Urine culture: E. coli Blood culture: Alpha hemolytic streptococcus and Staphylococcus epidermidis Assessment and plan: -Acute metabolic encephalopathy delirium from sepsis: Improved - blood cultures positive for alpha and beta Streptococcus and Staphylococcus epidermidis. From UTI: Possibly contaminant per ID.. IV ceftriaxone-discontinued -Acute UTI with cystitis from E. coli causing sepsis IV ceftriaxone. Ceftin 5 mg twice a day for 5 days -Morbid obesity BMI 41.8 -Idiopathic Parkinson's disease Sinemet ER 25/100 one tablet 4 times a day -Peripheral neuropathy Lyrica 150 mg twice a day -Diabetes mellitus type 2 Genitalia. Follow Accu-Cheks -Hyperlipidemia Lipitor 10 mg daily at bedtime -Bladder dysfunction with incontinence Flomax 0.4 mg daily -Depression Lexapro 10 mg daily -Essential hypertension Amlodipine 10 mg a day Coreg 3.125 mg twice a day -GERD PPI Disposition: [facility] Patient Condition at Discharge: Stable Plan - Discharge Summary New Discharge Prescriptions: New Cefuroxime Axetil [Ceftin] 500 mg PO BID #10 tab INSULIN ASPART (NovoLOG) [NovoLOG (formulary)] 0 unit SQ ACHS ml Continue Atorvastatin Calcium [Lipitor] 10 mg PO HS Isosorbide Mononitrate ER [Imdur] 60 mg PO DAILY Aspirin EC [Ecotrin Low Dose] 81 mg PO DAILY Polyethylene Glycol 3350 [Clearlax] 17 gm PO DAILY sitaGLIPtin [Januvia] 50 mg PO DAILY@0800 Montelukast [Singulair] 10 mg PO HS Apixaban [Eliquis] 2.5 mg PO BID Spironolactone 12.5 mg PO DAILY #0 Carbidopa/Levodopa [Carbidopa-Levo ER 25-100 Tab] 1 tab PO QID@05,12,16,20 Multivitamins, Thera [Multivitamin (formulary)] 1 tab PO DAILY Acetaminophen [Tylenol] 650 mg PO Q6H PRN PRN Reason: Fever And/ Or Pain HYDROcodone/APAP 10-325MG [[place] 10-325] 1 tab PO Q6H PRN #12 tab PRN Reason: Pain Escitalopram [Lexapro] 10 mg PO DAILY carvediloL [Coreg] 3.125 mg PO BID@0800,1999 Albuterol Sulfate [Ventolin HFA] 2 puff INHALATION RT-BID@0800,1999 Cetirizine HCl [Zyrtec] 5 mg PO DAILY PRN PRN Reason: Allergy Symptoms amLODIPine [Norvasc] 10 mg PO DAILY Ferrous Sulfate [Iron (65 MG Elemental)] 325 mg PO HS Omeprazole 20 mg PO DAILY Tamsulosin HCl [Flomax] 0.4 mg PO PC-SUPPER Pregabalin [Lyrica] 150 mg PO BID #6 cap Discontinued Furosemide [Lasix] 40 mg PO DAILY@0800 Potassium Chloride ER [K-Dur 10] 10 meq PO DAILY Discharge Medication List Atorvastatin Calcium [Lipitor] 10 mg PO HS 12/29/17 [History] Aspirin EC [Ecotrin Low Dose] 81 mg PO DAILY 11/18/18 [History] Isosorbide Mononitrate ER [Imdur] 60 mg PO DAILY 11/18/18 [History] Polyethylene Glycol 3350 [Clearlax] 17 gm PO DAILY 11/18/18 [History] Albuterol Sulfate [Ventolin HFA] 2 puff INHALATION RT-BID@0800,199903/21/21 [History] Apixaban [Eliquis] 2.5 mg PO BID 03/21/21 [History] Cetirizine HCl [Zyrtec] 5 mg PO DAILY PRN 03/21/21 [History] Escitalopram [Lexapro] 10 mg PO DAILY 03/21/21 [History] Montelukast [Singulair] 10 mg PO HS 03/21/21 [History] carvediloL [Coreg] 3.125 mg PO BID@0800,199903/21/21 [History] sitaGLIPtin [Januvia] 50 mg PO DAILY@0800 03/21/21 [History] Spironolactone 12.5 mg PO DAILY #0 03/25/21 [Rx] Carbidopa/Levodopa [Carbidopa-Levo ER 25-100 Tab] 1 tab PO QID@05,12,16,20 09/13/21 [History] Ferrous Sulfate [Iron (65 MG Elemental)] 325 mg PO HS 09/13/21 [History] Multivitamins, Thera [Multivitamin (formulary)] 1 tab PO DAILY 09/13/21 [History] Omeprazole 20 mg PO DAILY 09/13/21 [History] Tamsulosin HCl [Flomax] 0.4 mg PO PC-SUPPER 09/13/21 [History] amLODIPine [Norvasc] 10 mg PO DAILY 09/13/21 [History] Acetaminophen [Tylenol] 650 mg PO Q6H PRN 03/22/22 [History] Cefuroxime Axetil [Ceftin] 500 mg PO BID #10 tab 12/21/21 [Rx] HYDROcodone/APAP 10-325MG [[place] 10-325] 1 tab PO Q6H PRN #12 tab 12/21/21 [Rx] INSULIN ASPART (NovoLOG) [NovoLOG (formulary)] 0 unit SQ ACHS ml 12/21/21 [Rx] Pregabalin [Lyrica] 150 mg PO BID #6 cap 12/21/21 [Rx] Follow up Appointment(s)/Referral(s): Alden Hess DO [Primary Care Provider] - 1 Week Activity/Diet/Wound Care/Special Instructions: LTC at [facility]
== END 2021-12-21 15:47 | DRG 871 ==
LOC: EC 12:30 → EEVIPCON 12:30 → 6NMEDSUR 17:07 → OBSVTOIN 12-18 11:47
PROVIDERS: ADMIT Hospitalist; ATTEND Hospitalist
DX: A41.51 Sepsis due to Escherichia coli [E. coli] (principal); I50.33 Acute on chronic diastolic (congestive) heart failure; G93.41 Metabolic encephalopathy; Z68.41 Body mass index [BMI] 40.0-44.9, adult; F05 Delirium due to known physiological condition; I48.20 Chronic atrial fibrillation, unspecified; N39.0 Urinary tract infection, site not specified; E11.9 Type 2 diabetes mellitus without complications; E66.01 Morbid (severe) obesity due to excess calories; E78.5 Hyperlipidemia, unspecified; F32.A Depression, unspecified; F41.1 Generalized anxiety disorder; G20 Parkinson's disease; G62.9 Polyneuropathy, unspecified; I11.0 Hypertensive heart disease with heart failure; Z20.822 Contact with and (suspected) exposure to COVID-19; J44.9 Chronic obstructive pulmonary disease, unspecified; J45.50 Severe persistent asthma, uncomplicated; K21.9 Gastro-esophageal reflux disease without esophagitis; Z79.01 Long term (current) use of anticoagulants; Z79.82 Long term (current) use of aspirin; Z79.84 Long term (current) use of oral hypoglycemic drugs; Z79.899 Other long term (current) drug therapy; Z82.49 Family history of ischemic heart disease and other diseases of the circulatory system; Z86.16 Personal history of COVID-19; Z87.440 Personal history of urinary (tract) infections; Z96.653 Presence of artificial knee joint, bilateral; F02.80 Dementia in other diseases classified elsewhere, unspecified severity, without behavioral disturbance, psychotic disturbance, mood disturbance, and anxiety; N31.9 Neuromuscular dysfunction of bladder, unspecified
CPT/HCPCS: 36415; 70450; 71046; 72170; 80048; 80053; 80306; 80320; 81001; 82140; 82803; 83605; 83880; 84145; 84484; 85025; 85610; 85652; 85730; 86140; 87040; 87077; 87086; 87186; 87502; 87635; 93005; 94640; 96361; 96365; 99285